=== PATIENT | male | born 1965 | race Caucasian/White ===

== ENCOUNTER 2016-04-16 08:01 | Emergency (ER) | payer OTHER ==
[~2016-04-16] VITALS: Ht 193 cm; Wt 129.6 kg
--- NOTE | 2016-04-16 08:06 | ED.REPORT ---
HPI-General Illness Date of Service Apr 16, 2016 ED Provider: Kuldeep Garrido Patient is a 50 year old male who presents to the ED complaining of leg swelling onset one week ago. Associated symptoms include cough. He denies fever , chills, chest pain, SOB, or any other symptoms. He states that his lens coater (Dr. Falcon) says his "L arterial valve in not pumping enough blood out". He is not on any blood thinners. He takes Lasix and Lantus. Nursing Notes Stated Complaint: RETAINING WATER/LEG CRAMPS Nursing Notes Reviewed: Yes Allergies: Coded Allergies: No Known Allergies (Unverified , 04/16/16) Scheduled Furosemide (Lasix) 40 Mg Tablet 40 MG PO BID General Time Seen by MD: 08:06 Chief Complaint Other (Lower extremity swelling ) Hx Obtained From: Patient Arrived By: Walk-in Past Medical History Past Medical History Reports: Diabetes mellitus, Hyperlipidemia, Hypertension Past Surgical History Denies Social History Alcohol Use: "Social" Other Social History: Smokeless tobacco Review of Systems Full Review of Systems Constitutional: Denies: Chills, Fever Respiratory: Reports: Non-productive cough, Denies: Shortness of breath Cardiovascular: Denies: Chest pain Musculoskeletal: Reports: Extremity swelling (Bilateral leg swelling ) Complete sys rev & neg: except as marked. Physical Exam Vital Signs Vital Signs Date Time Temp Pulse Resp B/P Pulse Ox O2 Delivery O2 Flow Rate FiO2 04/16/16 09:47 101 20 154/92 04/16/16 08:21 36.2 04/16/16 08:14 106 19 172/97 97 Room Air Initial VS: Reviewed Head / Eyes: Atraumatic, Normocephalic Neck: Full range of motion Respiratory: Breath sounds normal, Clear to auscultation, No respiratory distress Abdomen / GI: Soft, Non-tender Skin: Warm, Dry Neurologic: Alert, Oriented, Nonfocal Psychiatric: Mood/affect normal, Behavior normal, Normal thought content General/Constitutional: Awake, Alert Hypertensive Cardiovascular: Regular rhythm, Heart sounds NL Heart Rate / Rhythm: Positive: Tachycardia Lower extremity edema to thighs Lower Extremity / Pelvis / MS: Neurologic intact venous stasis changes in legs Interpretation & Diagnostics Lab Results Interpretation Result Diagram: 04/16/16 0857 04/16/16 0857 Test 04/16/16 08:57 04/16/16 08:58 White Blood Count 8.0th/mm3 (3.8-10.1) Red Blood Count 5.26mil/mm3 (4.40-5.80) Hemoglobin 15.2g/dL (13.8-17.2) Hematocrit 47.2% (41.0-50.0) Mean Corpuscular Volume 89.7fL (81-100) Mean Corpuscular Hemoglobin 28.9pg (27.0-35.0) Mean Corpuscular Hemoglobin Concent 32.2% (32.0-37.0) Red Cell Distribution Width 15.0% (12.3-15.4) Platelet Count 284bil/L (150-400) Neutrophils (%) (Auto) 67.8% (40-74) Lymphocytes (%) (Auto) 19.1% (14-46) Monocytes (%) (Auto) 11.6% (4-12) Eosinophils (%) (Auto) 1.3% (0-5) Basophils (%) (Auto) 0.1% (0-3) Sodium Level 138mEq/L (134-144) Potassium Level 4.2mEq/L (3.5-5.2) Chloride Level 99mEq/L (97-108) Carbon Dioxide Level 23mmol/L (18-29) Blood Urea Nitrogen 16mg/dL (6-24) Creatinine 0.74mg/dL (0.76-1.27) Estimat Glomerular Filtration Rate 119mL/min (>59) Glucose Level 142mg/dL (60-99) Calcium Level 9.8mg/dL (8.5-10.1) Magnesium Level 1.5mg/dL (1.6-2.6) Total Bilirubin 1.0mg/dL (0.0-1.2) Aspartate Amino Transf (AST/SGOT) 24U/L (0-50) Alanine Aminotransferase (ALT/SGPT) 18U/L (0-44) Alkaline Phosphatase 184U/L (25-150) Troponin T < 0.010ug/L (0.0-0.011) Pro-B-Type Natriuretic Peptide 1680pg/mL (0-121) Total Protein 7.5g/dL (6.4-8.4) Albumin 3.3g/dL (3.4-5.0) Hold Rucker Top Tube Received (Received) ECG Interpretation ECG Interpretation: sinus tachy rate 106 non-specific T abnormalities, lateral leads Time: 08:48 Interpreted by: ED physician X-Ray Chest Interpretation Chest Xray Interpretation: IMPRESSION: Trace right-sided pleural effusion. Dictated by: Suzan Gibson MD, PhD on 04/16/2016 at 9:05 Approved by: Suzan Gibson MD, PhD on 04/16/2016 at 9:05 View: Portable, 1 view Interpretation / Wet Read by: Interpret - Radiologist Re-Eval/Medical Decision Med Decision/Clinical Course Symmetric lower extremity edema likely due to CHF, does not seem to be severely decompensated in such a way that would necessitate hospitalization. Will double up on Lasix, 40 mg twice a day for 5 days, recommended to contact his lens coater within 48 hours for repeat evaluation Time of Eval: 09:55 Re-Evaluation/Progress Note: Rechecked patient. Discussed lab and imagine results. Discussed plan for discharge. Patient understands and agrees with plan. All questions addressed at this time. Counseled Regarding: Diagnosis, Lab results, Need for follow-up, When/why to return to ED Discharge & Departure Primary Impression: CHF exacerbation Disposition: Home Discharge Condition All VS Reviewed: Yes Condition: Stable Additional Instructions: Increase your furosemide to 40 mg twice daily for 5 days. Call your lens coater tomorrow for repeat evaluation. ER for severe pain, hypoxia, difficulty breathing or other concerns. Referrals: Curtis Yun DO (PCP) Scribe Attestation Portions of this note were transcribed by Cara Mixon. I, Dr. Garrido personally performed the history, physical exam and medical decision-making; I reviewed and confirmed the accuracy of the information in the transcribed note. Signed by: Cara Mixon 04/16/16, 1023 copies to: Tomasa Falcon MD; Curtis Yun Timothy S DO Apr 16, 2016 08:06 CARA MIXON Apr 16, 2016 08:35
[2016-04-16 08:14] VITALS: BP 172/97; PULSE 106; RESP 19; O2SAT 97
[2016-04-16 09:01] LABS: BASOPHILS % (AUTO) 0.1 % (0-3); EOSINOPHILS % (AUTO) 1.3 % (0-5); MONOCYTES % (AUTO) 11.6 % (4-12); Mean Corpuscular Hemoglobin 28.9 pg (27.0-35.0); Mean Corpuscular Volume 89.7 fL (81-100); NEUTROPHILS % (AUTO) 67.8 % (40-74); Platelet Count 284 bil/L (150-400)
--- NOTE | 2016-04-16 09:09 | DRSVH ---
PROCEDURE: X-RAY CHEST ONE VIEW, PORTABLE ([id number]) INDICATIONS: fluid retention, CHF TECHNIQUE: One view of the chest was acquired. COMPARISON: [facility], CR, XR CHEST 2VW, 01/07/2016, 12:13. FINDINGS: Surgical changes and devices: None. Lungs and pleura: No pneumothorax. Trace right subpleural fluid collection is noted. Lungs are hypoi nflated. Lungs are clear. Mediastinum: Mediastinal contours appear normal. Heart size is normal. Bones and chest wall: No suspicious bony lesions. Overlying soft tissues appear unremarkable. IMPRESSION: Trace right-sided pleural effusion. Dictated by: Suzan Gibson MD, PhD on 04/16/2016 at 9:05 Approved by: Suzan Gibson MD, PhD on 04/16/2016 at 9:05
[2016-04-16] MEDS ORDERED: HYDROcodone-APAP 5-325 mg Tablet PO ONE (09:45)
[2016-04-16 09:47] VITALS: BP 154/92; PULSE 101; RESP 20
[2016-04-16 09:49] LABS: Magnesium 1.5 mg/dL (1.6-2.6)
[2016-04-16 09:53] LABS: TROPONIN T < 0.010 ug/L (0.0-0.011)
[2016-04-16] MEDS ORDERED: Furosemide 10 mg/mL 10 mL Inj IVPUSH ONE (09:55)
[2016-04-16] MEDS ORDERED: FURO-128 PO (10:21)
[2016-04-16] MEDS ORDERED: 0.9% Sodium Chloride 50 ML ONE (10:25)
[2016-04-16 11:23] VITALS: BP 158/92; PULSE 97; RESP 15
[2016-06-12] MEDS ORDERED: CARV25TA2 PO (16:30)
[2016-06-12] MEDS ORDERED: INS7030U SUBQ ×2 (16:30)
== END 2016-04-16 11:50 | disposition home or self-care (01) ==
LOC: SED 08:01
DX: I50.9 Heart failure, unspecified (principal); I11.0 Hypertensive heart disease with heart failure; E11.59 Type 2 diabetes mellitus with other circulatory complications; R05 Cough

== ENCOUNTER 2016-04-22 16:22 | Inpatient (IN) | payer OTHER ==
[~2016-04-22] VITALS: Ht 193 cm; Wt 123.1 kg
[~2016-04-22 16:22] MED LIST: FURO-128 PO
[2016-04-22 16:45] VITALS: BP 157/97; PULSE 106; RESP 16; O2SAT 94
--- NOTE | 2016-04-22 17:44 | DRSVH ---
PROCEDURE: X-RAY CHEST, TWO VIEWS ([id number]) INDICATIONS: shortness of breath TECHNIQUE: 2 views of the chest were acquired. COMPARISON: [facility], CR, XR CHEST 1VW (PORTABLE), 04/16/2016, 8:24. FINDINGS: Surgical changes and devices: None. Lungs and pleura: No pleural effusions or pneumothorax. Mild patchy medial right basilar opacities. Diffuse scarring. Elevated right hemidiaphragm. Mediastinum: Mediastinal contours are normal. Heart size is normal. Bones and chest wall: No suspicious bony abnormalities. Soft tissues appear unremarkable. IMPRESSION: Mild right basilar atelectasis/scarring. No acute consolidation Dictated by: Justo Brennan M.D. on 04/22/2016 at 17:42 Approved by: Justo Brennan M.D. on 04/22/2016 at 17:42
[2016-04-22] MEDS ORDERED: GLIP10TA10 PO (18:15)
[2016-04-22] MEDS ORDERED: METF-778 PO (18:15)
[2016-04-22] MEDS ORDERED: INSU100I13 SUBQ (18:15)
[2016-04-22] MEDS ORDERED: ATRV10T PO (18:15)
[2016-04-22] MEDS ORDERED: SPIR25TA3 PO (18:15)
[2016-04-22] MEDS ORDERED: LISI40TA PO (18:15)
--- NOTE | 2016-04-22 18:17 | ED.REPORT ---
HPI-General Illness Date of Service Apr 22, 2016 ED Provider: Teja García DO Pt is a 50 year old male with a hx of CHF and DM II presenting to the ED complaining of pain and increased swelling in his bilateral lower extremities onset 3 weeks ago. Associated symptoms include abdominal pain and SOB while lying down. Denies CP, fever or coughing up blood. Pt states that he is retaining water and describes the discomfort on his legs as feeling like a Christofer horse. He states that he has gained 30lbs of water weight in the last 3 weeks. The pt was seen in the ED on March 16 and his Lasix prescription was doubled. Nursing Notes Stated Complaint: PAIN IN LEGS Chief Complaint: General Complaint Nursing Notes Reviewed: Yes Allergies: Coded Allergies: No Known Allergies (Unverified , 04/22/16) Scheduled Atorvastatin (Lipitor) 10 Mg Tab 10 MG PO DAILY Furosemide (Lasix) 40 Mg Tablet 40 MG PO BID Glipizide (Glipizide) 10 Mg Tablet 10 MG PO BID Insulin Glargine (Lantus U100 Solostar Insulin Pen) 100 Unit/1 Ml Insuln.pen 50 UNIT SUBQ HS Lisinopril (Lisinopril) 40 Mg Tablet 40 MG PO BID Metformin HCl (Metformin HCl ER) 1,000 Mg [id number] 1,000 MG PO BID Spironolactone (Spironolactone) 25 Mg Tablet 25 MG PO DAILY General Time Seen by MD: 18:02 Chief Complaint Other (Swelling LE) Hx Obtained From: Patient Sudden in Onset?: No Onset Occurred: More than a week ago... (3 weeks) Symptom Duration: Since onset Location: : Leg left: Leg right Quality: Painful Severity: Current: Moderate Severity: Maximum: Moderate Recent Healthcare: No recent hospitalization, Recent doctor visit Similar Sx Previous: Yes Past Medical History Past Medical History CHF, left ventricle insufficiency Reports: Diabetes mellitus, Hyperlipidemia, Hypertension Past Surgical History Denies Social History Alcohol Use: "Social" Other Social History: Smokeless tobacco Ambulatory Status Independent Review of Systems Full Review of Systems Constitutional: Denies: Fever Respiratory: Reports: Shortness of breath, Denies: Non-productive cough Cardiovascular: Denies: Chest pain GI: Reports: Abdominal pain Musculoskeletal: Reports: Extremity pain (LE), Extremity swelling (LE) Endocrine: Reports: Weight gain (30 lbs) Complete sys rev & neg: except as marked. Physical Exam Vital Signs Vital Signs Date Time Temp Pulse Resp B/P Pulse Ox O2 Delivery O2 Flow Rate FiO2 04/22/16 20:37 103 20 168/108 95 Room Air 04/22/16 16:45 36.9 106 16 157/97 94 Room Air Initial VS: Reviewed General/Constitutional: Well-developed, Well-nourished Head / Eyes: Atraumatic, Normocephalic, PERRL ENT: Mucous membranes moist, Conjunctiva normal, No scleral icterus Respiratory: Breath sounds normal, Clear to auscultation, No respiratory distress Abdomen / GI: Soft, Non-tender, No guarding, No rebound, No distention Skin: Warm, Dry, No cyanosis Neurologic: Alert, Oriented, Nonfocal Psychiatric: Mood/affect normal, Behavior normal, Normal thought content Neck: Atraumatic Neck Vascular: Positive: JVD mild Cardiovascular: No gallop, No murmurs, No rubs Heart Rate / Rhythm: Positive: Tachycardia Hypertensive Lower Extremity / Pelvis / MS: Full range of motion, Neurologic intact, Vascular intact Anasarca up to abdomen. Interpretation & Diagnostics Lab Results Interpretation Result Diagram: 04/22/16180604/22/161806 Test 04/22/16 18:07 White Blood Count 7.3th/mm3 (3.8-10.1) Red Blood Count 5.06mil/mm3 (4.40-5.80) Hemoglobin 14.5g/dL (13.8-17.2) Hematocrit 45.4% (41.0-50.0) Mean Corpuscular Volume 89.7fL (81-100) Mean Corpuscular Hemoglobin 28.7pg (27.0-35.0) Mean Corpuscular Hemoglobin Concent 31.9% (32.0-37.0) Red Cell Distribution Width 15.2% (12.3-15.4) Platelet Count 244bil/L (150-400) Neutrophils (%) (Auto) 78.0% (40-74) Lymphocytes (%) (Auto) 12.6% (14-46) Monocytes (%) (Auto) 8.7% (4-12) Eosinophils (%) (Auto) 0.7% (0-5) Basophils (%) (Auto) 0% (0-3) D-Dimer < 0.5mg/L (<0.50) Sodium Level 138mEq/L (134-144) Potassium Level 4.1mEq/L (3.5-5.2) Chloride Level 99mEq/L (97-108) Carbon Dioxide Level 28mmol/L (18-29) Blood Urea Nitrogen 18mg/dL (6-24) Creatinine 0.83mg/dL (0.76-1.27) Estimat Glomerular Filtration Rate 104mL/min (>59) Glucose Level 185mg/dL (60-99) Calcium Level 9.2mg/dL (8.5-10.1) Total Bilirubin 0.8mg/dL (0.0-1.2) Aspartate Amino Transf (AST/SGOT) 20U/L (0-50) Alanine Aminotransferase (ALT/SGPT) 13U/L (0-44) Alkaline Phosphatase 147U/L (25-150) Troponin T < 0.010ug/L (0.0-0.011) Pro-B-Type Natriuretic Peptide 1494pg/mL (0-121) Total Protein 6.8g/dL (6.4-8.4) Albumin 3.1g/dL (3.4-5.0) ECG Interpretation ECG Interpretation: Tachycardic with a rate of 103. Nonspecific T abnormalities, lateral leads. No STEMI Time: 17:46 Interpreted by: ED physician Normal ECG Interpretation: Normal sinus rhythm X-Ray Chest Interpretation Chest Xray Interpretation: IMPRESSION: Mild right basilar atelectasis/scarring. No acute consolidation Dictated by: Justo Brennan M.D. on 04/22/2016 at 17:42 View: AP & lat Interpretation / Wet Read by: Interpret - Radiologist Re-Eval/Medical Decision Med Decision/Clinical Course Spoke to Dr. Serrano and he advised to admit the pt overnight to administer IV Lasix. This should release some of the lower extremity fluid buildup. Time of Eval: 20:25 Patient Status: Condition improved Re-Evaluation/Progress Note: Discussed plan for admission. Pt understands and agrees. Consultation #1: Referral / Consult Name: Quinton Serrano MD Consulted With: Cardiology Call Returned at: 20:20 Note: Admit the pt and give IV Lasix. Consultation #2: Referral / Consult Name: Ashlie Castillo MD Consulted With: Hospitalist Call Returned at: 21:02 Energy Project Manager: Will see patient, Agrees with plan, Accepts admit Discharge & Departure Primary Impression: CHF exacerbation Disposition: ADMITTED TO HOSPITAL Discharge Condition All VS Reviewed: Yes Condition: Improved Referrals: Curtis Yun DO (PCP) Tomasa Falcon MD Scribe Attestation Portions of this note were transcribed by Mariangel Oscar. I, Dr. García personally performed the history, physical exam and medical decision-making; I reviewed and confirmed the accuracy of the information in the transcribed note. Signed by : Tanner Jin, 04/22/2016 and 210. copies to: Tomasa Falcon MD; Curtis Yun Todd P DO Apr 22, 2016 18:17 MARIANGEL OSCAR Apr 22, 2016 18:30
[2016-04-22 18:29] LABS: BASOPHILS % (AUTO) 0 % (0-3); EOSINOPHILS % (AUTO) 0.7 % (0-5); MONOCYTES % (AUTO) 8.7 % (4-12); Mean Corpuscular Hemoglobin 28.7 pg (27.0-35.0); Mean Corpuscular Volume 89.7 fL (81-100); Platelet Count 244 bil/L (150-400)
[2016-04-22 18:47] LABS: TROPONIN T < 0.010 ug/L (0.0-0.011)
[2016-04-22] MEDS ORDERED: Furosemide 10 mg/mL 10 mL Inj IVPUSH ONE (20:25)
[2016-04-22 20:37] VITALS: BP 168/108; PULSE 103; RESP 20; O2SAT 95
[2016-04-22] MEDS ORDERED: HYDROcodone-APAP 5-325 mg Tablet PO ONE (20:45)
[2016-04-22 21:28] VITALS: BP 166/104; PULSE 105; RESP 20; O2SAT 95
[2016-04-22] MEDS ORDERED: Alum-Mag Hydrox-Simeth 30 mL Suspension PO PRN (21:30)
[2016-04-22 21:42] VITALS: BP 153/95; PULSE 99; RESP 18; O2SAT 97
[2016-04-22] MEDS: Insulin GLARgine 100 Unit/mL Syringe SUBQ SCH (22:30)
[2016-04-22] MEDS ORDERED: Glucose 40% Oral Gel 15 Gm Tube PO PRN (22:30)
--- NOTE | 2016-04-22 22:31 | NUR ---
Admit Patient admitted to room 3024 at 2140 from ED. Alert and oriented, answered all admit questions. Patient on bariatric bed. Oriented to room, call light, plan of care, hospital policies, intentional rounding. Telemetry placed. Patient signed property waiver. Will be on a continuous pulse oximeter overnight per JOSE A protocol, scored 7. Call light within reach, bed in lowest position, intentional rounding for safety.
--- NOTE | 2016-04-22 22:36 | PCM.HPMED ---
Subjective Date of Service Apr 22, 2016 Primary Provider: Admitting Physician: Ashlie Castillo MD Primary Care Physician: Cutris Yun DO Attending Physician: Ashlie Castillo MD Chief Complaint: Pain in legs. History of Present Illness: Jos is a 50-year-old obese gentleman with history of systolic heart failure , diabetes, hypertension who presents to the ER approximately one week following an ER visit on April 16 for CHF exacerbation. He presents with his mother. Robbin reports that he has been experiencing increase in his body weight over the last several days with increased swelling in both legs and up to the level of his belly. He reports that he has doubled up on his home Lasix without significant effect. He does report that he is urinating a lot, but "apparently not enough." He reports significant pain in his legs, and notes that they feel like they are stretched. He also reports significant pain in his bilateral knees. He has been taking ibuprofen regularly with up to 7-8 200 mg tablets a day for several weeks. He notes that at his ER visit earlier this month he was advised to take a break. He reports that it is somewhat more difficult to lie flat at which time he experiences shortness of breath, and he notes that he has also had more shortness of breath with exertion. He reports an ongoing chronic cough that is not productive, and does not seem to be associated with his current presentation. He denies any other concerns at this time. Review of Systems: Comprehensive review of systems conducted and was negative except for the pertinent positives listed in history of present illness above. Allergies Coded Allergies: No Known Allergies (Unverified , 04/22/16) Home Medications Jos Ragsdale. [id number] 1965 02/15/2016 10:00 AM 04/2005/09/2013 Accu-Chek Active Glucose Cont combo pack Check blood sugars 4 times daily. Fasting in AM, before breakfast and dinner meals and once two hours after a meal 01/07/2016 atorvastatin 10 mg tablet take 1 tablet by oral route every day 12/18/2015 Blood Glucose Monitoring kit take 3 not specified by percutaneous route 4 times every day carvedilol 12.5 mg tablet take 1 tablet twice daily 01/07/2016 furosemide 40 mg tablet take 1 tablet by oral route once daily glipizide 10 mg tablet take 1 tablet by oral route 2 times every day before a meal Lantus Solostar 100 unit/mL (3 mL) subcutaneous insulin pen inject 40 units every night 01/07/2016 lisinopril 40 mg tablet take 1 Tablet by oral route twice daily. 12/17/2015 metformin 1,000 mg tablet take 1 tablet by oral route 2 times every day with morning and evening meals 01/27/2014 ONE TOUCH DELICA 33G LANCETS USE TO DRAW BLOOD TO TEST BLOOD SUGARS 4 TIMES A DAY. FASTING IN AM, BEFORE BREAKFAST AND DINNER MEALS AND ONCE TWO HOURS AFTER A MEAL. 01/27/2014 ONE TOUCH ULTRA BLUE TEST STRIPS USE TO TEST BLOOD SUGARS FOUR TIMES A DAY. FASTING IN AM BEFORE BREAKFAST AND DINNER MEALS AND ONCE 2 HOURS AFTER A MEAL 01/07/2016 spironolactone 25 mg tablet take 1 tablet by oral route every day 12/03/2015 Ventolin HFA 90 mcg/actuation aerosol inhaler inhale 2 puff by inhalation route every 4 - 6 hours as needed PMH Heart failure with reduced EF: Diagnosed with EF 30-35% on echo 12/2015 ( registered medical transcriptionist is Dr. Falcon with [facility] cardiology) * 01/06/16 Interpretation Summary 1) Normal left ventricular size with moderately to severely reduced systolic function (EF 30-35%). 2) Normal right ventricular size with mildly to moderately reduced function. 3) No significant valvular abnormalities. 4) Elevated right sided filling pressures. 5) Severe hypertension present during the study (BP 168/112). 6) No prior echo available for comparison. Diabetes mellitus type II on insulin, last A1c was 11/29/2015 at 13.4% * Complicated by elevated microalbumin (microalbumin/creatinine 1756.8 on 2013) Hypertension, essential * Outpatient blood pressure readings over the last several months have been 120s to 140s over 80s to 90s. 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 She reports that he can no longer work due to his medical conditions. Exam Vital Signs Vital Sign - Last Date Time Temp Pulse Resp B/P Pulse Ox O2 Delivery O2 Flow Rate FiO2 04/22/16 21:28 105 20 166/104 95 Room Air 04/22/16 16:45 36.9 Exam General: Cooperative, No Acute Distress, lying on ER gurney with head of bed elevated to 15 Head: Normocephalic, atraumatic. External ears normal. Eyes: PERRL, EOMI. Anicteric sclerae. Mouth: Mucous Membranes Moist/[place], remnants of chewing tobacco, poor dentition Neck: Neck supple with full range of motion. No Thyromegaly. Chest & Lungs: Clear to auscultation bilaterally with minimal crackles in the bilateral bases without wheezes or rhonchi. Cardiovascular: Tachycardic Rate/Rhythm, Normal S1, Normal S2, No Murmurs/Rubs/ Gallops appreciated, radial and posterior tibial pulses are 2+ bilaterally. No JVD appreciated on exam. Abdomen: Non-tender, Non-distended, No masses, Normoactive bowel tones, Soft, no pitting edema noted. Musculoskeletal: Normal Range of Motion, but does note some discomfort in his bilateral knees with movement Extremities: Mild to moderate pitting edema in the bilateral legs from the feet to the hips, significant hyperpigmentation with scaling on the bilateral lower legs consistent with stasis dermatitis Neurological: Alert, Oriented X3, Grossly Neurologically Intact, Cranial Nerves 2-12 Intact, Normal Speech Psych: Normal mood and affect. Thought process and content intact. Lab and Diagnostics Labs Laboratory Tests 72 Hours Test 04/22/16 18:07 White Blood Count 7.3th/mm3 (3.8-10.1) Red Blood Count 5.06mil/mm3 (4.40-5.80) Hemoglobin 14.5g/dL (13.8-17.2) Hematocrit 45.4% (41.0-50.0) Mean Corpuscular Volume 89.7fL (81-100) Mean Corpuscular Hemoglobin 28.7pg (27.0-35.0) Mean Corpuscular Hemoglobin Concent 31.9% (32.0-37.0) Red Cell Distribution Width 15.2% (12.3-15.4) Platelet Count 244bil/L (150-400) Neutrophils (%) (Auto) 78.0% (40-74) Lymphocytes (%) (Auto) 12.6% (14-46) Monocytes (%) (Auto) 8.7% (4-12) Eosinophils (%) (Auto) 0.7% (0-5) Basophils (%) (Auto) 0% (0-3) D-Dimer < 0.5mg/L (<0.50) Sodium Level 138mEq/L (134-144) Potassium Level 4.1mEq/L (3.5-5.2) Chloride Level 99mEq/L (97-108) Carbon Dioxide Level 28mmol/L (18-29) Blood Urea Nitrogen 18mg/dL (6-24) Creatinine 0.83mg/dL (0.76-1.27) Estimat Glomerular Filtration Rate 104mL/min (>59) Glucose Level 185mg/dL (60-99) Calcium Level 9.2mg/dL (8.5-10.1) Total Bilirubin 0.8mg/dL (0.0-1.2) Aspartate Amino Transf (AST/SGOT) 20U/L (0-50) Alanine Aminotransferase (ALT/SGPT) 13U/L (0-44) Alkaline Phosphatase 147U/L (25-150) Troponin T < 0.010ug/L (0.0-0.011) Pro-B-Type Natriuretic Peptide 1494pg/mL (0-121) Total Protein 6.8g/dL (6.4-8.4) Albumin 3.1g/dL (3.4-5.0) Result Diagram: 04/22/16180604/22/161806 X-Rays, CTs and MRIs Date of Service: 04/22/16 6139 PROCEDURE: X-RAY CHEST, TWO VIEWS ([id number]) INDICATIONS: shortness of breath COMPARISON: [facility], CR, XR CHEST 1VW (PORTABLE), 04/16/2016, 8: 24. IMPRESSION: Mild right basilar atelectasis/scarring. No acute consolidation Dictated by: Justo Brennan M.D. on 04/22/2016 at 17:42 12-lead ECG Sinus tachycardia with a rate of 103, normal axis, normal interval durations, nonspecific T-wave abnormalities in the lateral leads, but no other ST-T wave changes to suggest ischemia. Assessment & Plan 50-year-old obese male with history of heart failure with reduced EF, diabetes with poor control, hypertension with poor control who presented to the ER with increased lower extremity swelling, weight gain, orthopnea. 1. Heart failure with reduced EF (estimated 30-35% on echo 12/2015) with acute exacerbation, present on admission. * Likely secondary to dietary indiscretion. Failure of home titration of diuretic. * Differential includes: Venous insufficiency, hypoalbuminemia. Please note TSH on 01/07/2016 was 1.530. * Diuresis with IV furosemide, dose given in the ER. * Continue home lisinopril and spironolactone and carvedilol * Repeat chest x-ray in a couple days * Repeat echo once acute symptoms have improved * CHF clinic * Heart healthy/constant carb diet with 2 L fluid restriction * Daily standing weights * Telemetry 2. Hypertension, essential, worse than historical on admission. * Likely secondary to stress of hospitalization * Continue home medications as above * As his heart rate is elevated, will give one-time dose of labetalol by mouth 100 mg tonight if elevation persists. * Monitor 3. Bilateral lower extremity edema and pain, worse than historical on admission. * Likely secondary to #1 * Differential includes: DVT (less likely given symmetry and consistency with presentation), differential as in #1 * Management as in #1 * Pain management with Tylenol. Consideration for using a low-dose narcotic if needed (patient is opiate stephen). * DVT prophylaxis with heparin subcutaneous 4. Diabetes mellitus type II on insulin complicated by elevated microalbumin. Hyperglycemia on admission. * Significance of hyperglycemia uncertain given hour of the day. * Continue home Lantus (reported at 50 units every night subcutaneous), but hold metformin and sulfonylurea * Correctional insulin, medium dose * Check A1c 5. Hyperlipidemia. * Continue home statin * Most recent lipid panel was 01/07/2016: Total cholesterol 152, triglyceride 135 , HDL 37, LDL 88 6. Tobacco dependence, chewing. * Tobacco cessation discussed. * Nicotine patch provided if needed 7. Obesity * Management of medical conditions as above PRN MEDICATIONS - Acetaminophen as needed for mild pain/fever/headache - Bowel regimen as needed Patient is admitted under inpatient status with expected length of stay greater than 2 midnights due to severity of presenting symptoms, risk of adverse event, and complexity of treatment plan. Pain Evaluation: Adequate Pain Control GI Prophylaxis: Not indicated VTE Prophylaxis: Sub-Q Heparin (Unfractionated) Resuscitation Status: CPR: Attempt Resuscitation Attending Statement Pt seen and examined by myself and agree with above plan. copies to: Tomasa Falcon MD; Curtis Yun Collin T DO Apr 22, 2016 22:36 Ashlie Castillo MD Apr 23, 2016 06:05
[2016-04-23] VITALS (9 sets, daily range): BP systolic 125–138; BP diastolic 77–87; PULSE 73–94; RESP 18; O2SAT 94–98
[2016-04-23 00:29] LABS: APPEARANCE,URINE CLEAR (CLEAR,HAZY); COLOR,URINE YELLOW (YELLOW)
[2016-04-23 00:30] LABS: OCCULT BLOOD,URINE TRACE (NEGATIVE)
[2016-04-23] MEDS: HYDROcodone-APAP 5-325 mg Tablet PO PRN ×4 (01:05→17:43)
--- NOTE | 2016-04-23 03:34 | NUR ---
Glucose levels Patient's glucose at 2330 was 103. Scheduled 50 units Lantus NOT given, per patient request. Glucose level rechecked at 0330 and it was 85. Patient is asymptomatic. Will pass on to day RN information.
[2016-04-23 06:47] LABS: BASOPHILS % (AUTO) 0.2 % (0-3); EOSINOPHILS % (AUTO) 1.6 % (0-5); MONOCYTES % (AUTO) 11.8 % (4-12); Mean Corpuscular Hemoglobin 28.7 pg (27.0-35.0); Mean Corpuscular Volume 89.9 fL (81-100); NEUTROPHILS % (AUTO) 69.5 % (40-74); Platelet Count 219 bil/L (150-400)
--- NOTE | 2016-04-23 06:49 | NUR ---
Sterile Instrument Technician tech reported that patient had 6 beats V-tach, phone call at 0647. Patient is asleep, but said that he feels fine when woken up. 2L nasal cannula applied at this time for oxygen saturations that briefly drop to high 80's while asleep. Will inform oncoming RN.
[2016-04-23 06:53] LABS: Magnesium 1.5 mg/dL (1.6-2.6)
[2016-04-23] MEDS: Lisinopril 40 Tablet PO SCH ×3 (07:53→20:45)
[2016-04-23] MEDS: Heparin 5,000 Unit/mL Inj SUBQ SCH ×2 (07:55→20:45)
[2016-04-23] MEDS: Insulin LISPRO 300 Unit/3 mL Inj SUBQ SCH ×4 (08:00→20:54)
[2016-04-23] MEDS: Sodium Chloride LOK Flush 10 mL Syringe IVFLUSH SCH ×3 (08:30→16:48)
[2016-04-23] MEDS ORDERED: Influenza (Adult) Vaccine 0.5 mL Syringe IM ONE (08:30)
[2016-04-23] MEDS ORDERED: Furosemide 10 mg/mL 4 mL Inj IVPUSH SCH (09:25)
[2016-04-23] MEDS ORDERED: IBUP800T28 PO (09:58)
[2016-04-23] MEDS ORDERED: Magnesium Sulf 4 Gm/100 mL H2O 4 GM in IV Premix 1 EACH IV ONE (10:05)
[2016-04-23] MEDS ORDERED: 0.9% Sodium Chloride 250 ML ONE (11:22)
--- NOTE | 2016-04-23 11:23 | NUR ---
Social Work: Screening Data: Pt is a 50 y/o male admitted for congestive heart failure with anasarca. Pt's PCP is Dr Yun, pt's insurance is [employer]. EMR reviewed, no d/c planning needs anticipated. RABBLER will continue to follow if needs arise. Assessment: Pt who is independent at baseline. Plan: Pt will likely d/c home via POV when medically stable. No d/c planning needs anticipated. RABBLER will continue to follow if needs arise. JOCELYN Freeman
--- NOTE | 2016-04-23 12:33 | PCM.CHPCAR ---
Consult Subjective Date of service Apr 23, 2016 Date of admit Apr 22, 2016 at 20:59 Provider Requesting Consult Requesting Provider: JUICE LOPEZ HOSPITALIST Primary Care Physician Primary Care Provider: Curtis Yun DO Chief Complaint Water gain/edema History of Present Illness Jos is a 50 y/o man with recently diagnosed CHF (HFrEF). He had an echocardiogram completed in fall and showed a LVEF around 35%. He was referred to Dr. Falcon for cardiology care. He was started on appropriate medical therapy. Apparently, he did not have any insurance and he wanted to defer any more expensive procedures until he had insurance which he just started with on 04/16/2016. He has risk factors such as DM (not well controlled) , HLD, and HTN. He apparently has been compliant with his medications as of lately and his sodium restriction. He was recently seen in the ER and his Lasix was increased but he continued to have weight gain of about 8 lbs in 24 hours. Surprisingly, he denies any orthopnea or PND but he probably does have sleep apnea with recent hx of desaturations during sleeping hours. He initially came in with significant hypertension but now his BP has decreased and has normalized. His major complaint is lower extremity discomfort and constipation and decreased appetite. His chest CXR was unremarkable in the ER and EKG has not shown any acute changes suggestive of acute coronary syndrome. His troponins are negative up to date. His pBNP is ~1400. He also reports a cough. Review of Systems Review of Systems Comprehensive review of systems conducted and was negative except for the pertinent positives listed in history of present illness above. PMH Past Medical History Heart failure with reduced EF: Diagnosed with EF 30-35% on echo 12/2015 ( boxing inspector is Dr. Falcon with [facility] cardiology) * 01/06/16 Interpretation Summary 1) Normal left ventricular size with moderately to severely reduced systolic function (EF 30-35%). 2) Normal right ventricular size with mildly to moderately reduced function. 3) No significant valvular abnormalities. 4) Elevated right sided filling pressures. 5) Severe hypertension present during the study (BP 168/112). 6) No prior echo available for comparison. Diabetes mellitus type II on insulin, last A1c was 11/29/2015 at 13.4% * Complicated by elevated microalbumin (microalbumin/creatinine 1756.8 on 2013) Hypertension, essential * Outpatient blood pressure readings over the last several months have been 120s to 140s over 80s to 90s. Hyperlipidemia Tobacco dependence Obesity Bedside Blood Glucose: 124 Scheduled Atorvastatin (Lipitor) 10 Mg Tab 10 MG PO MORNING (Reported) Furosemide (Lasix) 40 Mg Tablet 40 MG PO BID Glipizide (Glipizide) 10 Mg Tablet 10 MG PO BID (Reported) Insulin Glargine (Lantus U100 Solostar Insulin Pen) 100 Unit/1 Ml Insuln.pen 50 UNIT SUBQ HS (Reported) Lisinopril (Lisinopril) 40 Mg Tablet 40 MG PO BID (Reported) Metformin HCl (Metformin HCl ER) 1,000 Mg [id number] 1,000 MG PO BID (Reported) Spironolactone (Spironolactone) 25 Mg Tablet 25 MG PO DAILY (Reported) Scheduled PRN Ibuprofen (Ibuprofen) 800 Mg Tablet 800 MG PO BID PRN PRN For Pain (Reported) Current Inpatient Medications Current Medications Al Hydrox/Mg Hydrox/Simethicone 30 ml Q6 PRN PO; Start 04/22/16 at 21:30 Ondansetron HCl Dose range: 4 mg to 8 mg Q4H PRN IVPUSH; Start 04/22/16 at 21:30 Acetaminophen 975 mg Q6H PRN PO; Start 04/22/16 at 21:30 Sodium Chloride 10 ml PERRY IVFLUSH Last administered on 04/23/16 00:00; Admin Dose 10 ML; Start 04/23/16 at 00:30 Senna 2 tablet BID PRN PO; Start 04/22/16 at 21:35 Polyethylene Glycol 17 gm DAILY PRN PO; Start 04/22/16 at 21:35 Nicotine 1 patch DAILY PRN TOPICAL; Start 04/22/16 at 21:35 Heparin Sodium (Porcine) 5,000 unit Q12 SUBQ Last administered on 04/23/16 07:55 ; Admin Dose 5,000 UNIT; Start 04/23/16 at 08:30 Atorvastatin Calcium 10 mg DAILY PO; Start 04/23/16 at 08:30; Stop 04/23/16 at 08: 30; Status DC Lisinopril 40 mg BID PO Last administered on 04/23/16 07:53; Admin Dose 40 MG; Start 04/22/16 at 22:30 Spironolactone 25 mg DAILY PO Last administered on 04/23/16 07:53; Admin Dose 25 MG; Start 04/23/16 at 08:30 Insulin Glargine 50 unit HS SUBQ; Start 04/22/16 at 22:30 Insulin Human Lispro Nutritional Dose to be given pr... [facility] SUBQ; Start at 08:00 Atorvastatin Calcium 10 mg HS PO Last administered on 04/23/16 00:00; Admin Dose 10 MG; Start 04/22/16 at 22:35 Acetaminophen/ Hydrocodone Bitart 1-2 tabs q4h Q4 PRN PO Last administered on 09:25; Admin Dose 2 TABLET; Start 04/22/16 at 22:35 Carvedilol 12.5 mg BIDWM PO Last administered on 04/23/16 08:00; Admin Dose 12.5 MG; Start 04/22/16 at 22:40; Stop 04/23/16 at 11:57; Status DC Furosemide 40 mg DAILY IVPUSH Last administered on 04/23/16 11:13; Admin Dose 40 MG; Start 04/23/16 at 09:25 Carvedilol 6.25 mg BIDWM PO; Start 04/23/16 at 17:30 Allergies: Coded Allergies: No Known Allergies (Unverified , 04/22/16) Social History Hx Alcohol Use: Yes (rarely, remote history of heavy use)Hx Substance Use: No Hx Tobacco Use: Yes (daily chewing tobacco, never smoker) Smoking Status: Never Smoker Living Arrangement: with Family Exam Vital Signs Vital Sign - Last Date Time Temp Pulse Resp B/P Pulse Ox O2 Delivery O2 Flow Rate FiO2 04/23/16 10:16 77 04/23/16 10:08 36.3 18 125/77 96 Room Air Intake and Output 04/22/16 04/22/16 04/23/16 Cumulative From/Thru 14:59 22:59 06:59 04/22/16 16:45 - 04/23/16 06:38 Intake Total 638 ml 638 ml Output Total 2000 ml 2000 ml Balance -1362 ml -1362 ml Intake Oral 638 ml 638 ml Output Urine Total 2000 ml 2000 ml # Bowel Movements 0 0 Objective General: Cooperative, No Acute Distress, Head: Normocephalic, atraumatic. External ears normal. Eyes: PERRL, EOMI. Anicteric sclerae. Mouth: Mucous Membranes Moist/[place], remnants of chewing tobacco, poor dentition Neck: Neck supple with full range of motion. No Thyromegaly. JVP difficult to assess. Chest & Lungs: Clear to auscultation bilaterally with minimal crackles in the bilateral bases without wheezes or rhonchi. Cardiovascular: Tachycardic Rate/Rhythm, Normal S1, Normal S2, No Murmurs/Rubs/ Gallops appreciated, radial and posterior tibial pulses are 2+ bilaterally. Abdomen: Non-tender, Non-distended, No masses, Normoactive bowel tones, Soft, no pitting edema noted. Musculoskeletal: Normal Range of Motion, but does note some discomfort in his bilateral knees with movement Extremities: Mild to moderate pitting edema in the bilateral legs from the feet to the hips, significant hyperpigmentation with scaling on the bilateral lower legs consistent with stasis dermatitis Neurological: Alert, Oriented X3, Grossly Neurologically Intact, Cranial Nerves 2-12 Intact, Normal Speech Psych: Normal mood and affect. Thought process and content intact. Lab and Diagnostics Labs CBC Test 04/23/16 05:43 White Blood Count 6.2th/mm3 (3.8-10.1) Red Blood Count 4.77mil/mm3 (4.40-5.80) Hemoglobin 13.7g/dL (13.8-17.2) Hematocrit 42.9% (41.0-50.0) Mean Corpuscular Volume 89.9fL (81-100) Mean Corpuscular Hemoglobin 28.7pg (27.0-35.0) Mean Corpuscular Hemoglobin Concent 31.9% (32.0-37.0) Red Cell Distribution Width 15.2% (12.3-15.4) Platelet Count 219bil/L (150-400) Neutrophils (%) (Auto) 69.5% (40-74) Lymphocytes (%) (Auto) 16.7% (14-46) Monocytes (%) (Auto) 11.8% (4-12) Eosinophils (%) (Auto) 1.6% (0-5) Basophils (%) (Auto) 0.2% (0-3) CMP Test 04/22/16 18:07 04/23/16 05:43 Troponin T < 0.010ug/L Pro-B-Type Natriuretic Peptide 1494pg/mL Sodium Level 141mEq/L Potassium Level 4.1mEq/L Chloride Level 101mEq/L Carbon Dioxide Level 26mmol/L Blood Urea Nitrogen 18mg/dL Creatinine 0.84mg/dL Estimat Glomerular Filtration Rate 102mL/min Glucose Level 113mg/dL Calcium Level 9.1mg/dL Magnesium Level 1.5mg/dL Total Bilirubin 0.7mg/dL Aspartate Amino Transf (AST/SGOT) 21U/L Alanine Aminotransferase (ALT/SGPT) 12U/L Alkaline Phosphatase 144U/L Total Protein 6.0g/dL Albumin 3.1g/dL Result Diagram: 04/23/1643 04/23/1643 X-Rays, CTs and MRIs Date of Service: 04/22/16 1649 PROCEDURE: X-RAY CHEST, TWO VIEWS ([id number]) INDICATIONS: shortness of breath TECHNIQUE: 2 views of the chest were acquired. COMPARISON: [facility], CR, XR CHEST 1VW (PORTABLE), 04/16/2016, 8: 24. FINDINGS: Surgical changes and devices: None. Lungs and pleura: No pleural effusions or pneumothorax. Mild patchy medial right basilar opacities. Diffuse scarring. Elevated right hemidiaphragm. Mediastinum: Mediastinal contours are normal. Heart size is normal. Bones and chest wall: No suspicious bony abnormalities. Soft tissues appear unremarkable. IMPRESSION: Mild right basilar atelectasis/scarring. No acute consolidation Assessment & Plan Problems: (1) Acute on chronic systolic CHF (congestive heart failure) Plan: He does not appear to have much in the way of pulmonary congestion but is definitely third spacing most likely 2/2 to his LV systolic dysfunction. Etiology is most consistent with HTN but certainly he needs to have complete ischemic workup to exclude any significant CAD since he does have significant risk factors. It appears that oral Lasix was not working effectively in this gentleman but he is responding to IV Lasix. I would simply continue with his IV Lasix but increase it to 40 mg BID and closely monitor his BMP's daily including magnesium. I would recommend Torsemide as an alternative for oral loop diuretic since it does have better bioabsorption. I have added oral digoxin 0.25 mg once a day which will hopefully help with his symptomatic HFrEF and reduce recurrent hospitalization. I have reduced his carvedilol to 6.25 mg twice a day as well. When he is more euvolemic then this can be increased back up to 12.5 mg twice a day. If by tomorrow his urine output is not that impressive, I would consider milrinone IV for inotropic support in addition with his IV Lasix. I have discussed my recommendations and findings with the hospitalist team and they will closely monitor his progression. I will discuss with his primary boxing inspector to see if he wishes to proceed with inpatient cardiac catheterization or as an outpatient. However, this too is dependent on his progression during this hospitalization. Status: Acute ICD Code: I50.23 (2) HTN (hypertension) Qualifiers: Hypertension type: essential hypertension Hypertension goal: less than 130 /80 Qualified Code: I10 - Essential (primary) hypertension Plan: Possible primary cause of his HFrEF. Every attempt should be made to control his HTN. For now, it is improving. Status: Chronic ICD Code: I10 (3) Hyperlipidemia Qualifiers: Hyperlipidemia type: Mixed hyperlipidemia Qualified Code: E78.2 - Mixed hyperlipidemia Status: Chronic ICD Code: E78.5 (4) DM (diabetes mellitus) Qualifiers: Diabetes mellitus type: type 2 Status: Acute ICD Code: E11.9 (5) Obesity Status: Acute ICD Code: E66.9 Cardiology Plan: Diuresis Pain Evaluation: Adequate Pain Control VTE Prophylaxis: Sub-Q Heparin (Unfractionated) Resuscitation Status: CPR: Attempt Resuscitation Time spent 80 minutes Copies to: Tomasa Falcon MD; Curtis Yun Oscar J MD Apr 23, 2016 12:33
--- NOTE | 2016-04-23 17:42 | PCM.PNMED ---
Subjective Date of Service Apr 23, 2016 Subjective Overnight: Asx 6 beats VT; O2 drops when asleep Today: Patient states his pain is in his legs and feet. Denies SOB; denies orthopnea. Tolerating po well. Admits to needing sleep study eval. Exam Vital Signs Vital Sign - Last Date Time Temp Pulse Resp B/P Pulse Ox O2 Delivery O2 Flow Rate FiO2 04/23/16 13:41 71 04/23/16 10:08 36.3 18 125/77 96 Room Air Intake and Output 04/22/16 04/22/16 04/23/16 Cumulative From/Thru 15:00 23:00 07:00 04/22/16 16:45 - 04/23/16 06:38 Intake Total 638 ml 638 ml Output Total 2000 ml 2000 ml Balance -1362 ml -1362 ml Intake Oral 638 ml 638 ml Output Urine Total 2000 ml 2000 ml # Bowel Movements 0 0 Exam General: AAOx3; pleasant and cooperative; no acute distress HENT: Atraumatic; sclera anicteric; mucus membranes moist Neck: Soft, trachea midline Cardiac: Regular rate and rhythm; no murmurs appreciated Respiratory: CTAB, adequate air flow all arana; no wheeze Abdomen: Soft, obese; trace-mild pitting edema noted on inferior pannus Extremities: BLLE moderate pitting edema noted extending from dorsum to thigh/ inferior abdomen; multiple superficial ulcerations BLLE; two significant approx 2cm diameter intact bullae noted left foot at #2-3 MTP, and lateral aspect great toe; Right great toe nail absent; chronic venous stasis changes BLLE Neuro: CNII-XII grossly intact; speech normal Psych: Appropriate mood, affect, and responses to questioning Lab and Diagnostics Result Diagram: 04/23/16 0543 04/23/16 0543 X-Rays, CTs and MRIs Date of Service: 04/22/16 1649 PROCEDURE: X-RAY CHEST, TWO VIEWS ([id number]) INDICATIONS: shortness of breath COMPARISON: [facility], CR, XR CHEST 1VW (PORTABLE), 04/16/2016, 8: 24. IMPRESSION: Mild right basilar atelectasis/scarring. No acute consolidation Dictated by: Justo Brennan M.D. on 04/22/2016 at 17:42 12-lead ECG Sinus tachycardia with a rate of 103, normal axis, normal interval durations, nonspecific T-wave abnormalities in the lateral leads, but no other ST-T wave changes to suggest ischemia. Assessment & Plan 50-year-old obese male with history of heart failure with reduced EF, diabetes with poor control, hypertension with poor control, who presented to the ER with increased lower extremity swelling, weight gain, orthopnea. Admitted for evaluation and treatment of anasarca suspected to be secondary to acute exacerbation CHF. - Hospital day 2 1. Heart failure with reduced EF (estimated 30-35% on echo 12/2015) with acute exacerbation, present on admission. Ongoing * Likely secondary to dietary indiscretion. Failure of home titration of diuretic. * Differential includes: Venous insufficiency, hypoalbuminemia. Please note TSH on 01/07/2016 was 1.530. * Cardiology has been consulted; appreciate time and recommendations * Lasix 40mg IV BID * If lasix ineffective, add milrinone IV in am * Change home Rx lasix to torsemide for better absorption * Digoxin 0.25mg daily * Carvedilol 6.25mg BID; consideration of increase at DC * Repeat chest x-ray 04/24 * Repeat echo once acute symptoms have improved; ordered * CHF clinic * Heart healthy/constant carb diet with 2 L fluid restriction * Daily standing weights * Telemetry 2. Hypertension, essential, chronic. Stable * Initial readings: Likely secondary to stress of hospitalization * Continue home medications as above * Monitor 3. Bilateral lower extremity edema and pain, worse than historical on admission. Ongoing * Likely secondary to #1 * Differential includes: DVT (less likely given symmetry and consistency with presentation), differential as in #1 * Management as in #1 * Pain management with Tylenol. Consideration for using a low-dose narcotic if needed (patient is opiate stephen). * DVT prophylaxis with heparin subcutaneous 4. Diabetes mellitus type II on insulin complicated by elevated microalbumin. Hyperglycemia on admission. * Continue home Lantus (reported at 50 units every night subcutaneous), but hold metformin and sulfonylurea * Correctional insulin, medium dose * Check A1c: Pending 5. Hyperlipidemia. * Continue home statin * Most recent lipid panel was 01/07/2016: Total cholesterol 152, triglyceride 135 , HDL 37, LDL 88 6. Tobacco dependence, chewing. * Tobacco cessation discussed. * Nicotine patch provided if needed 7. Obesity * Management of medical conditions as above * Dietary consultation placed 8. Bulla of left foot, acute, present on admission. Presumed stable - Wound care consultation 9. Right great toe, absent toenail, acute, present on admission. Stable - Wound care PRN MEDICATIONS - Acetaminophen as needed for mild pain/fever/headache - Bowel regimen as needed - DVT: Hep q8 - DIET: Heart/CC with fluid restriction - GI: None - Code: FULL CODE Dispo: Likely to remain additional 1-2 days pending medical stability and improvement. Current needs at this time include CHF clinic. Reported to have not met inpatient criteria. Currently changed to OBS. Pain Evaluation: Adequate Pain Control GI Prophylaxis: Not indicated VTE Prophylaxis: Sub-Q Heparin (Unfractionated) Resuscitation Status: CPR: Attempt Resuscitation Attending Statement The patient was seen and examined together with Dr. Gerardo on 04/23/2016 and I agree with the history, exam and plan as outlined in the note above. Christy Gerardo DO Apr 23, 2016 17:42 Lucas Carter MD Apr 24, 2016 09:17
--- NOTE | 2016-04-23 20:38 | DRSVH ---
[facility] [address] [place] [address] Echocardiogram Report Name: GERRY WOLFE RStudy Date: 04/23/2016 Height: 76 in Hospital Exam Location: [facility] Weight: 302 lb Gender: Male BSA: 2.6 m2 : 1965 Age: 50 yrs BP: 134/87 mmHg Reason For Study: BILATERAL LOWER EXTREMITY EDEMA, CHF Ordering Physician: HOSPITALIST [facility] Performed By: Teddy Palacios Referring Physician: TIRSO FERNANDEZ Interpretation Summary There is mild concentric left ventricular hypertrophy. Left ventricular systolic function is moderate to severely reduced. Left ventricular ejection fraction is estimated to be 35%. LVEF has not changed significantly since prior study. There is moderate to severe global hypokinesis of the left ventricle. Assessment of diastolic parameters indicates a restrictive filling pattern of the left ventricle consistent with significantly elevated filling pressures. The right ventricle is normal size. Right ventricular systolic function is mild to moderately reduced. Pulmonary artery pressures cannot be estimated because of the lack of a measurable TR jet velocity. The left atrial size is normal. Borderline right atrial enlargement. There is no significant valvular heart disease. The ascending aorta is mildly enlarged. The IVC is dilated (diameter is greater than 2.1 cm) and it collapses less than 50% with a sniff. This suggests a high right atrial pressure of 15 mm Hg. Procedure: A two-dimensional transthoracic echocardiogram with color flow and Doppler was performed. The study quality was technically adequate. A contrast injection of Definity was performed to improve assessment of LV function. Comparison is made with the echocardiogram of 01/06/16. The patient was in normal sinus rhythm during the exam. Left Ventricle: The left ventricle is normal in size. There is mild concentric left ventricular hypertrophy. Left ventricular systolic function is moderate to severely reduced. Left ventricular ejection fraction is estimated to be 35%. There is moderate to severe global hypokinesis of the left ventricle. Assessment of diastolic parameters indicates a restrictive filling pattern of the left ventricle consistent with significantly elevated filling pressures. Right Ventricle: The right ventricle is normal size. Right ventricular systolic function is mild to moderately reduced. Atria: The left atrial size is normal. Borderline right atrial enlargement. The interatrial septum is intact with no evidence for an atrial septal defect. Mitral Valve: The mitral valve is grossly normal. There is trace mitral regurgitation. Aortic Valve: The aortic valve is normal in structure and function. No aortic regurgitation is present. Tricuspid Valve: The tricuspid valve is not well visualized, but is grossly normal. Pulmonary artery pressures cannot be estimated because of the lack of a measurable TR jet velocity. Pulmonic Valve: The pulmonic valve is not well seen, but is grossly normal. There is a trace or physiologic amount of pulmonic regurgitation. There is no significant valvular heart disease. Great Vessels: The aortic root is normal size. The ascending aorta is mildly enlarged. The pulmonary artery is normal size. The IVC is dilated (diameter is greater than 2.1 cm) and it collapses less than 50% with a sniff. This suggests a high right atrial pressure of 15 mm Hg. Pericardium/ Pleura There is no pericardial effusion. There is a small left -sided pleural effusion. MMode/2D Measurements & Calculations LVIDd: 5.2 cm RA long axis: 5.6 cm LVOT diam LVIDs: 4.7 cm LA A2 area: 18.5 cm FS: 9.9 % LA A4 area: 23.5 cm RA area: 23.1 cm AoV Opening EPSS: 1.8 cm LA length (vol): 5.6 cm RA vol: 81.0 ml IVSd: 1.2 cm LA vol: 65.9 ml RA : 30.7 ml/m2 Ao root diam LVPWd: 1.3 cm LA vol index asc Aorta Diam: 3.7 cm IVC diam: 2.8 cm EDV(MOD-sp2) LV peterson. diameter/BSA LV sys. diameter/BSA TAPSE: 1.4 cm : 142.1 ml (cm/m^2): 2.0 (cm/m^2): 1.8 Doppler Measurements & Calculations Ao V2 max: 108.6 cm/sec MV E max manny MV E/A: 2.9 PA V2 max Ao max P.7 mmHg : 86.7 cm/sec MV A dur : 71.4 cm/sec Ao mean P.7 mmHg MV A max manny : 0.15 sec PA mean PG LVOT Max Manny: 68.6 cm/sec: 30.3 cm/sec : 1.0 mmHg ENMANUEL(I,D): 2.6 cm sev ratio: 0.64 MV dec time: 0.17 sec Ao V2 mean LV V1 max PG PA V2 mean : 79.6 cm/sec : 48.3 cm/sec Ao V2 VTI: 19.8 cm LV V1 VTI PA pr(Accel) ENMANUEL(V,D): 2.6 cm2 : 12.7 cm : 51.0 mmHg ENMANUEL indexed to BSA (cm^2/m^2): 1.00 Reading Physician:PM
[2016-04-23] MEDS: Furosemide 10 mg/mL 4 mL Inj IVPUSH SCH (20:45)
[2016-04-23] MEDS: Insulin GLARgine 100 Unit/mL Syringe SUBQ SCH (20:55)
[2016-04-24] VITALS (9 sets, daily range): BP systolic 123–138; BP diastolic 76–86; PULSE 73–83; RESP 18; O2SAT 95–99
[2016-04-24] MEDS: Sodium Chloride LOK Flush 10 mL Syringe IVFLUSH SCH ×4 (02:14→20:21)
[2016-04-24] MEDS: HYDROcodone-APAP 5-325 mg Tablet PO PRN ×5 (02:15→21:50)
[2016-04-24 06:06] LABS: BASOPHILS % (AUTO) 0.1 % (0-3); EOSINOPHILS % (AUTO) 1.6 % (0-5); MONOCYTES % (AUTO) 12.3 % (4-12); Mean Corpuscular Hemoglobin 28.8 pg (27.0-35.0); Mean Corpuscular Volume 92.9 fL (81-100); NEUTROPHILS % (AUTO) 74.1 % (40-74); Platelet Count 220 bil/L (150-400)
[2016-04-24 06:56] LABS: Magnesium 2.1 mg/dL (1.6-2.6); Phosphorus 5.7 mg/dL (2.5-4.9)
[2016-04-24] MEDS: Furosemide 10 mg/mL 4 mL Inj IVPUSH SCH ×2 (07:39→20:19)
[2016-04-24] MEDS: Lisinopril 40 Tablet PO SCH ×2 (07:40→20:19)
[2016-04-24] MEDS: Heparin 5,000 Unit/mL Inj SUBQ SCH ×2 (07:40→20:19)
[2016-04-24] MEDS: Insulin LISPRO 300 Unit/3 mL Inj SUBQ SCH ×4 (07:41→20:20)
[2016-04-24] MEDS: Senna-Docusate 8.6-50 mg Tablet PO PRN ×2 (07:46→21:49)
--- NOTE | 2016-04-24 09:25 | PCM.PNCARD ---
Subjective Date of service Apr 24, 2016 Chief Complaint # HFrEF: Unclear mechanism # HTN # T2DM # HLD # Tabacco Abuse # Morbid Obesity # Diabetic Ulcer to R Great Toe History of Present Illness Mr. Jos Ragsdale is a pleasant 50 y/o M that is clinically followed in the [facility] Cardiology clinic by Dr. Falcon. The patients cardiac history consists of: HFrEF (unclear etiology...suspect HTN), HTN, HLD, T2DM. During the patients most recent Clinic Visit with Dr. Falcon 02/2016 he was initiated on appropriate medical management. The patient had an echocardiogram completed in the fall that showed an LVEF of around 35%. Apparently, he did not have any insurance and he wanted to defer any more expensive procedures until he had insurance which he just started with on 04/16/2016. He apparently has been compliant with his medications as of lately and his sodium restriction. He was recently seen in the ER and his Lasix was increased but he continued to gain weight (8 lbs in 24 hours). The patient denies any orthopnea / PND. He denies anginal symptoms of any type, no palpitations, no dizziness, lightheadedness, pre-syncope or rolf syncopal spells. The patient probably does have sleep apnea with a recent hx of desaturations during sleeping hours. He was admitted with significant hypertension. His BP has subsequently decreased and has normalized. His major complaint is lower extremity discomfort and constipation with decreased appetite. His chest CXR was unremarkable in the ER and EKG has not shown any acute changes suggestive of acute coronary syndrome. His troponins are negative up to date. His pBNP is ~ 1400. . Medications: 1. Lasix 40mg IV BID 2. Lisinopril 40mg po BID 3. Carvedilol 6.25mg po BID 4. Spironolactone 25mg po qday 5. Digoxin o.25mg po qday 6. Atorvastatin 10mg po qday 7. Nicdoderm Patches 8. Lantus Insulin 9. Heparin Labs: 1. CMP: Na+ 140, K+ 4.5, BUN: 31, Creat: 1.01 2. Mg++ 2.1 3. ProBNP 1494 on (04/22/2016) 4. Albumin 3.1 2 D Echo: 23 April 2016 There is mild concentric left ventricular hypertrophy. Left ventricular systolic function is moderate to severely reduced. Left ventricular ejection fraction is estimated to be 35%. LVEF has not changed significantly since prior study. There is moderate to severe global hypokinesis of the left ventricle. Assessment of diastolic parameters indicates a restrictive filling pattern of the left ventricle consistent with significantly elevated filling pressures. The right ventricle is normal size. Right ventricular systolic function is mild to moderately reduced. Pulmonary artery pressures cannot be estimated because of the lack of a measurable TR jet velocity. The left atrial size is normal. Borderline right atrial enlargement. There is no significant valvular heart disease. The ascending aorta is mildly enlarged. The IVC is dilated (diameter is greater than 2.1 cm) and it collapses less than 50% with a sniff. This suggests a high right atrial pressure of 15 mm Hg Subjective: Today, the patient c/o N/V that started early this morning. He denies any type of anginal symptoms, no PND/Orthopnea, no SOB, no palpitations, no dizziness, lightheadedness, pre-syncope of rolf Syncope. He continue to c/o bilat LE pain and swelling. Additional Information: Comprehensive review of systems conducted and was negative except for the pertinent positives listed in history of present illness above Exam Vital Signs Vital Sign - Last Date Time Temp Pulse Resp B/P Pulse Ox O2 Delivery O2 Flow Rate FiO2 04/24/16 06:51 36.5 74 18 123/76 98 Nasal Cannula 2.00 Intake and Output 04/23/16 04/23/16 04/24/16 Cumulative From/Thru 15:00 23:00 07:00 04/22/16 16:45 - 04/23/16 21:06 Intake Total 1137 ml 1775 ml Output Total 125 ml 2125 ml Balance 1012 ml -350 ml Intake Oral 1137 ml 1775 ml Output Urine Total 125 ml 2125 ml # Bowel Movements 0 Additional Information: General: Cooperative, No Acute Distress, Head: Normocephalic, atraumatic. External ears normal. Eyes: PERRL, EOMI. Anicteric sclerae. Mouth: Mucous Membranes Moist/Anthony, remnants of chewing tobacco, poor dentition Neck: Neck supple with full range of motion. No Thyromegaly. JVP difficult to assess. Chest & Lungs: Clear to auscultation bilaterally with minimal crackles in the bilateral bases without wheezes or rhonchi. Cardiovascular: Normal S1, Normal S2, No Murmurs/Rubs/Gallops appreciated, radial and posterior tibial pulses are 2+ bilaterally. Abdomen: Obese,NT, Non-distended, No masses, + NABS 4 quads, Soft, no pitting edema noted. Extremities: Mild to moderate pitting edema in the bilateral legs from the feet to the hips, significant hyperpigmentation with scaling on the bilateral lower legs consistent with stasis dermatitis Neurological: Alert, Oriented X3, Grossly Neurologically Intact, Normal Speech Psych: Normal mood and affect. Lab and Diagnostics Result Diagram: 04/24/1654404/24/16544 Assessment & Plan Assessment # Acute on chronic systolic CHF (congestive heart failure) Plan: The patient does not appear to have much in the way of pulmonary congestion, however, he is definitely third spacing most likely secondary to his LV systolic dysfunction. The Etiology of the patient's CM is most consistent with HTN. He will need to have a complete ischemic workup to exclude any significant CAD since he does have multiple significant cardiac risk factors for the development of premature CAD. (T2DM, HTN, HLD, Tobacco abuse). Recommendations : 1. The patients weight is down 1.4Kg's/24h. Continue IV Lasix at 40 mg BID and continue to closely monitor his BMP's daily including magnesium. 2. Prior to DC, recommend switching from Furosemide to Torsemide as an alternative form of an oral loop diuretic since it does have better bioabsorption. 2. Continue oral digoxin 0.25 mg once a day which will hopefully help with his symptomatic HFrEF and reduce recurrent hospitalization. a): In lieu of the patients N/V, I've ordered a Trough Digoxin level this morning....before his noon dosage of Digoxin. 3. Continue carvedilol to 6.25 mg twice a day as well. When he becomes more euvolemic the Carvedilol may be increased back up to 12.5 mg twice a day. . I will discuss this patients treatment plan with Dr. Falcon (primary box office manager) to see if he wishes to proceed with an inpatient cardiac catheterization or as an outpatient. However, this too is dependent upon his progression during this hospitalization. # HTN The patients HTN may be a primary cause of his HFrEF. Recommendations: 1. Currently stable and well controlled on current medical management 2. BP goal is <130/80mmHg # Hyperlipidemia Recomendations: 1. Continue Atorvastatin 10mg/day # T2DM (diabetes mellitus) Recomendations: 1. Treatment per primary care team # Obesity Recommendations 1. Treament / Primary care team # Diabetic Foot Ulcer R Great Toe Recommendations: 1. Treatment plan / Primary care team Problems: (1) Acute on chronic systolic CHF (congestive heart failure) Status: Acute ICD Code: I50.23 (2) HTN (hypertension) Qualifiers: Hypertension type: essential hypertension Hypertension goal: less than 130 /80 Qualified Code: I10 - Essential (primary) hypertension Status: Chronic ICD Code: I10 (3) Hyperlipidemia Qualifiers: Hyperlipidemia type: Mixed hyperlipidemia Qualified Code: E78.2 - Mixed hyperlipidemia Status: Chronic ICD Code: E78.5 (4) DM (diabetes mellitus) Qualifiers: Diabetes mellitus type: type 2 Status: Acute ICD Code: E11.9 (5) Obesity Status: Acute ICD Code: E66.9 Cardiology Plan: Diuresis Pain Evaluation: Adequate Pain Control GI Prophylaxis: Not indicated VTE Prophylaxis: Sub-Q Heparin (Unfractionated) Resuscitation Status: CPR: Attempt Resuscitation Teja Carr PA-C Apr 24, 2016 09:25
--- NOTE | 2016-04-24 10:35 | PCM.PNMED ---
Subjective Date of Service Apr 24, 2016 Subjective Overnight: Ocassional paired PVCs, rate steady in 70s; O2 drops when asleep Today: Patient states his pain is in his legs and feet. Denies SOB; denies orthopnea. Tolerating po well. Exam Vital Signs Vital Sign - Last Date Time Temp Pulse Resp B/P Pulse Ox O2 Delivery O2 Flow Rate FiO2 04/24/16 09:39 36.4 77 18 127/81 98 Room Air 04/24/16 06:51 2.00 Intake and Output 04/23/16 04/23/16 04/24/16 Cumulative From/Thru 15:00 23:00 07:00 04/22/16 16:45 - 04/23/16 21:06 Intake Total 1137 ml 1775 ml Output Total 125 ml 2125 ml Balance 1012 ml -350 ml Intake Oral 1137 ml 1775 ml Output Urine Total 125 ml 2125 ml # Bowel Movements 0 Exam General: AAOx3, NAD HENT: Atraumatic; sclera anicteric; moist mucus membranes Neck: Supple Cardiac: Regular rate and rhythm; no murmurs or gallops Respiratory: CTAB Abdomen: Soft, obese; mild pitting edema on side pannus Extremities: Multiple superficial ulcerations Moderate bilateral lower extremity edema. Both feet covered with dressing. Chronic venous stasis changes on bilateral lower extremities. Psych: Normal mood and affect. IVs and Medications Medications Reviewed: Medications were reviewed in detail Lab and Diagnostics Result Diagram: 04/24/16 0545 04/24/16 0545 X-Rays, CTs and MRIs Date of Service: 04/22/16 1649 PROCEDURE: X-RAY CHEST, TWO VIEWS ([id number]) INDICATIONS: shortness of breath COMPARISON: [facility], CR, XR CHEST 1VW (PORTABLE), 04/16/2016, 8: 24. IMPRESSION: Mild right basilar atelectasis/scarring. No acute consolidation Dictated by: Justo Brennan M.D. on 04/22/2016 at 17:42 12-lead ECG Sinus tachycardia with a rate of 103, normal axis, normal interval durations, nonspecific T-wave abnormalities in the lateral leads, but no other ST-T wave changes to suggest ischemia. Cardiac Echo Impressions Echocardiogram 04/23/2016 There is mild concentric left ventricular hypertrophy. Left ventricular systolic function is moderate to severely reduced. Left ventricular ejection fraction is estimated to be 35%. LVEF has not changed significantly since prior study. There is moderate to severe global hypokinesis of the left ventricle. Assessment of diastolic parameters indicates a restrictive filling pattern of the left ventricle consistent with significantly elevated filling pressures. The right ventricle is normal size. Right ventricular systolic function is mild to moderately reduced. Pulmonary artery pressures cannot be estimated because of the lack of a measurable TR jet velocity. The left atrial size is normal. Borderline right atrial enlargement. There is no significant valvular heart disease. The ascending aorta is mildly enlarged. The IVC is dilated (diameter is greater than 2.1 cm) and it collapses less than 50% with a sniff. This suggests a high right atrial pressure of 15 mm Hg. Assessment & Plan 50-year-old obese male with history of heart failure with reduced EF, diabetes with poor control, hypertension with poor control, who presented to the ER with increased lower extremity swelling, weight gain, orthopnea. Admitted for evaluation and treatment of anasarca suspected to be secondary to acute exacerbation CHF. - Hospital day 2 1. Heart failure with reduced EF (estimated 30-35% on echo 12/2015) with acute exacerbation, present on admission. Ongoing * Likely secondary to dietary indiscretion. Failure of home titration of diuretic. * Differential includes: Venous insufficiency, hypoalbuminemia. Please note TSH on 01/07/2016 was 1.530. * Patient gained 1.2kg in 24h, will consult cardiology to improve diuresis * Cardiology following; appreciate time and recommendations * Lasix 40mg IV BID * If lasix ineffective, cardiology to add milrinone IV * Change home Rx lasix to torsemide for better absorption * Digoxin 0.25mg daily * Carvedilol 6.25mg BID; consideration of increase at DC * Repeat chest x-ray pending results * Repeat echo shows not significant changes compared to echo 12/2015 * CHF clinic * Heart healthy/constant carb diet with 2 L fluid restriction * Daily standing weights * Telemetry 2. Hypertension, essential, chronic. Stable * Initial readings: Likely secondary to stress of hospitalization * Continue home medications as above * Monitor 3. Bilateral lower extremity edema and pain, worse than historical on admission. Ongoing * Likely secondary to #1 * Differential includes: DVT (less likely given symmetry and consistency with presentation), differential as in #1 * Management as in #1 * Pain management with Tylenol. Consideration for using a low-dose narcotic if needed (patient is opiate stephen). * DVT prophylaxis with heparin subcutaneous 4. Diabetes mellitus type II on insulin complicated by elevated microalbumin. Hyperglycemia on admission. * Continue home Lantus (reported at 50 units every night subcutaneous), but hold metformin and sulfonylurea * Correctional insulin, medium dose * Check A1c: Pending 5. Hyperlipidemia. * Continue home statin * Most recent lipid panel was 01/07/2016: Total cholesterol 152, triglyceride 135 , HDL 37, LDL 88 6. Tobacco dependence, chewing. * Tobacco cessation discussed. * Nicotine patch provided if needed 7. Obesity * Management of medical conditions as above * Dietary consultation placed 8. Bulla of left foot, acute, present on admission. Presumed stable - Wound care consultation 9. Right great toe, absent toenail, acute, present on admission. Stable - Wound care PRN MEDICATIONS - Acetaminophen as needed for mild pain/fever/headache - Bowel regimen as needed - DVT: Hep q8 - DIET: Heart/CC with fluid restriction - GI: None - Code: FULL CODE Dispo: Likely to remain additional 1-2 days pending medical stability and improvement. Current needs at this time include CHF clinic. Reported to have not met inpatient criteria. Currently changed to OBS. GI Prophylaxis: Not indicated VTE Prophylaxis: Sub-Q Heparin (Unfractionated) Resuscitation Status: CPR: Attempt Resuscitation Attending Statement The patient was seen and examined together with Dr. Waller on 04/24/2016 and I agree with the history, exam and plan as outlined in the note above. Blank Waller DO Apr 24, 2016 10:34 Lucas Carter MD Apr 25, 2016 10:02
[2016-04-24] MEDS: Ondansetron 2 mg/mL 2 mL Inj IVPUSH PRN (10:39)
--- NOTE | 2016-04-24 11:12 | DRSVH ---
PROCEDURE: X-RAY CHEST, TWO VIEWS ([id number]) INDICATIONS: shortness of breath TECHNIQUE: 2 views of the chest were acquired. COMPARISON: [facility], CR, XR CHEST 2VW, 01/07/2016, 12:13. [facility], CR , XR CHEST 1VW (PORTABLE), 04/16/2016, 8:24. [facility], CR, XR CHEST 2VW, 04/22/2016, 17: 07. FINDINGS: Surgical changes and devices: None. Lungs and pleura: Right basilar infiltrate suspicious for pneumonia. Possible small right pleural ef fusion. No pneumothorax. Mediastinum: Mediastinal contours are normal. Heart size is normal. Bones and chest wall: No suspicious bony abnormalities. Soft tissues appear unremarkable. IMPRESSION: Right basilar infiltrate suspicious for pneumonia. Dictated by: Kemi Rosas M.D. on 04/24/2016 at 11:10 Approved by: Kemi Rosas M.D. on 04/24/2016 at 11:10
--- NOTE | 2016-04-24 13:39 | NUR ---
04/24/16 Wound Care [facility] Patient seen for wound care evaluation. Patient reports significant edema to huber LE resulting in blisters to left foot. Patient also reports right toe nail "came off" 2 days ago without previous injury. Left foot intact blisters to base of great and second toes measuring 4cmL x 6cmW x 0.3cm Raised. Minimal yellow serous drainage noted. Cleaned with saline, applied xeroform to blisters, 4x4 between toes, covered with 4x4 gauze. Secured with 2" conform and paper tape. Right great toe wound 100% brown crusty scab and measures 2cmW x 2cmL x0cmD with minimal brown drainage noted. Right distal 2nd toe with black area to tip of toe measuring 0.2cmL x 0.2cmW x 0cmD with no open area and no drainage. Right distal 3rd toe with brown eschar measuring 0.8cmW x 0.3cmL x 0cmD with no open area and no drainage. Cleaned all with saline. Applied xeroform to great toe, covered with 4x4s and secured with 2" conform. Patient with no reports of pain in feet during treatment. No other wounds or areas of pressure identified. Nursing to change dressing with xeroform daily and as needed due to drainage or soiling. Wound care to follow up as needed. Patient noted rolling and moving in bed during eval, and states he is getting up with assist to go to bathroom. Low overall risk for pressure related skin breakdown.
[2016-04-24] MEDS: Insulin GLARgine 100 Unit/mL Syringe SUBQ SCH (20:20)
--- NOTE | 2016-04-24 20:54 | PROG NOTE ---
[address] [address] PROGRESS NOTE PATIENT: GERRY WOLFE : 1965 MR#: [id number] ADMIT: 04/22/2016 JOB ID: [id number] DATE: 04/24/2016 I saw and examined the patient. Please see Teja Carr's notes for details. IMPRESSION: 1. Acute on chronic combined systolic and diastolic heart failure. 2. Moderate left ventricular systolic dysfunction with ejection fraction 35%. 3. Hypertension. 4. Hypercholesterolemia. 5. Diabetes mellitus, uncontrolled. 6. Tobacco dependence, chewing. (He started chewing when he was 4 years old and chews an average of about one can every two days). 7. Severe obesity, with BMI of 37.6. 8. Possible obstructive sleep apnea. PLAN: The patient has at least 20 pounds of water in his body. He will need more aggressive diuresis. I will increase intravenous furosemide to 40 mg every 6 hours. Potassium level will be monitored closely. Once he achieves euvolemic status, he should undergo right and left heart catheterization to determine the cause of his left ventricular systolic dysfunction. It is likely that he has underlying ischemic heart disease, as he has been chewing tobacco for 46 years. SAEED
[2016-04-25] VITALS (8 sets, daily range): BP systolic 119–147; BP diastolic 77–93; PULSE 79–95; RESP 12–18; O2SAT 92–97
[2016-04-25] MEDS: HYDROcodone-APAP 5-325 mg Tablet PO PRN ×5 (02:03→22:10)
[2016-04-25] MEDS: Furosemide 10 mg/mL 4 mL Inj IVPUSH SCH ×4 (02:03→22:09)
--- NOTE | 2016-04-25 04:51 | NUR ---
Pain: Pt c/o leg pain due to edema x2 6-10/23, medication administered; effective. Pt denied BM since admit, Senna administered at HS. Slept most of the night, pleasant and cooperative with care.
[2016-04-25 06:06] LABS: BASOPHILS % (AUTO) 0.1 % (0-3); EOSINOPHILS % (AUTO) 0.9 % (0-5); MONOCYTES % (AUTO) 8.6 % (4-12); Mean Corpuscular Hemoglobin 28.2 pg (27.0-35.0); Mean Corpuscular Volume 94.7 fL (81-100); NEUTROPHILS % (AUTO) 80.3 % (40-74); Platelet Count 253 bil/L (150-400)
[2016-04-25] MEDS: Insulin LISPRO 300 Unit/3 mL Inj SUBQ SCH ×4 (07:47→22:00)
[2016-04-25] MEDS: Lisinopril 40 Tablet PO SCH ×2 (07:54→22:10)
[2016-04-25] MEDS: Heparin 5,000 Unit/mL Inj SUBQ SCH ×2 (07:54→22:10)
[2016-04-25] MEDS: Sodium Chloride LOK Flush 10 mL Syringe IVFLUSH SCH ×3 (09:33→22:18)
[2016-04-25] MEDS: Senna-Docusate 8.6-50 mg Tablet PO PRN (09:33)
--- NOTE | 2016-04-25 09:54 | PCM.PNMED ---
Subjective Date of Service Apr 25, 2016 Subjective Overnight: No overnight events. Today: Patient continues to complain about his pain is in his legs, relieved by pain medication. Denies CP, SOB, fevers or chills. Exam Vital Signs Vital Sign - Last Date Time Temp Pulse Resp B/P Pulse Ox O2 Delivery O2 Flow Rate FiO2 04/25/16 09:25 37.1 82 18 144/77 97 Room Air 04/25/16 05:33 2.00 Intake and Output 04/24/16 04/24/16 04/25/16 Cumulative From/Thru 15:00 23:00 07:00 04/22/16 16:45 - 04/24/16 20:33 Intake Total 440 ml 1456 ml 3671 ml Output Total 600 ml 400 ml 3125 ml Balance -160 ml 1056 ml 546 ml Intake Oral 390 ml 1456 ml 3621 ml IV Total 50 ml 50 ml Output Urine Total 600 ml 400 ml 3125 ml # Bowel Movements 0 0 Exam General: AAOx3, NAD HENT: Atraumatic; sclera anicteric; moist mucus membranes Neck: Supple Cardiac: Regular rate and rhythm; no murmurs or gallops Respiratory: CTAB Abdomen: Soft, obese; fluid retention observed by stretched out stretch chavez at lateral pannus Extremities: Moderate bilateral lower extremity edema. Both feet covered with dressing. Chronic venous stasis changes on bilateral lower extremities. Psych: Normal mood and affect. Lab and Diagnostics Result Diagram: 04/25/16 0520 04/25/16 0520 X-Rays, CTs and MRIs Date of Service: 04/22/16 1649 PROCEDURE: X-RAY CHEST, TWO VIEWS ([id number]) INDICATIONS: shortness of breath COMPARISON: [facility], CR, XR CHEST 1VW (PORTABLE), 04/16/2016, 8: 24 IMPRESSION: Mild right basilar atelectasis/scarring. No acute consolidatio Dictated by: Justo Brennan M.D. on 04/22/2016 at 17:42 Date of Service: 04/24/16 0600 PROCEDURE: X-RAY CHEST, TWO VIEWS ([id number]) INDICATIONS: shortness of breath TECHNIQUE: 2 views of the chest were acquired. COMPARISON: [facility], CR, XR CHEST 2VW, 01/07/2016, 12:13. [facility], CR, XR CHEST 1VW (PORTABLE), 04/16/2016, 8:24. [facility], CR, XR CHEST 2VW, 04/22/2016, 17:07. IMPRESSION: Right basilar infiltrate suspicious for pneumonia. Dictated by: Kemi Rosas M.D. on 04/24/2016 at 11:10 12-lead ECG Sinus tachycardia with a rate of 103, normal axis, normal interval durations, nonspecific T-wave abnormalities in the lateral leads, but no other ST-T wave changes to suggest ischemia. Cardiac Echo Impressions Echocardiogram 04/23/2016 There is mild concentric left ventricular hypertrophy. Left ventricular systolic function is moderate to severely reduced. Left ventricular ejection fraction is estimated to be 35%. LVEF has not changed significantly since prior study. There is moderate to severe global hypokinesis of the left ventricle. Assessment of diastolic parameters indicates a restrictive filling pattern of the left ventricle consistent with significantly elevated filling pressures. The right ventricle is normal size. Right ventricular systolic function is mild to moderately reduced. Pulmonary artery pressures cannot be estimated because of the lack of a measurable TR jet velocity. The left atrial size is normal. Borderline right atrial enlargement. There is no significant valvular heart disease. The ascending aorta is mildly enlarged. The IVC is dilated (diameter is greater than 2.1 cm) and it collapses less than 50% with a sniff. This suggests a high right atrial pressure of 15 mm Hg. Assessment & Plan 50-year-old obese male with history of heart failure with reduced EF, diabetes with poor control, hypertension with poor control, who presented to the ER with increased lower extremity swelling, weight gain, orthopnea. Admitted for evaluation and treatment of anasarca suspected to be secondary to acute exacerbation CHF. - Hospital day 3 1. Heart failure with reduced EF (estimated 30-35% on echo 12/2015) with acute exacerbation, present on admission. Ongoing * Likely secondary to dietary indiscretion. Failure of home titration of diuretic. * Differential includes: Venous insufficiency, hypoalbuminemia. Please note TSH on 01/07/2016 was 1.530. * Patient continues to not diurese well, standing weight pending * Cardiology following; appreciate time and recommendations * Lasix 40mg IV BID now increased to Q6H with Metolazone 5mg daily * Change home Rx Lasix to torsemide for better absorption * Digoxin 0.25mg daily * Carvedilol 6.25mg BID; consideration of increase at DC * R and L heart cath to be performed once stable * Repeat chest x-ray with Right basilar infiltrate suspicious for pneumonia * Repeat echo shows not significant changes compared to echo 12/2015 * CHF clinic * Heart healthy/constant carb diet with 2 L fluid restriction * Daily standing weights * Telemetry 2. Hypertension, essential, chronic. Stable * Initial readings: Likely secondary to stress of hospitalization * Continue home medications as above * Monitor 3. Bilateral lower extremity edema and pain, worse than historical on admission. Ongoing * Likely secondary to #1 * Differential includes: DVT (less likely given symmetry and consistency with presentation), differential as in #1 * Management as in #1 * Pain management with Tylenol. Consideration for using a low-dose narcotic if needed (patient is opiate stephen). * DVT prophylaxis with heparin subcutaneous 4. Diabetes mellitus type II on insulin complicated by elevated microalbumin. Hyperglycemia on admission. * Continue home Lantus (reported at 50 units every night subcutaneous), but hold metformin and sulfonylurea * Correctional insulin, medium dose * Check A1c: Pending 5. Hyperlipidemia. * Continue home statin * Most recent lipid panel was 01/07/2016: Total cholesterol 152, triglyceride 135 , HDL 37, LDL 88 6. Tobacco dependence, chewing. * Tobacco cessation discussed. * Nicotine patch provided if needed 7. Obesity * Management of medical conditions as above * Dietary consultation placed 8. Bulla of left foot, acute, present on admission. Presumed stable - Wound care consultation 9. Right great toe, absent toenail, acute, present on admission. Stable - Wound care PRN MEDICATIONS - Acetaminophen as needed for mild pain/fever/headache - Bowel regimen as needed - DVT: Hep q8 - DIET: Heart/CC with fluid restriction - GI: None - Code: FULL CODE Dispo: Likely to remain additional 1-2 days pending medical stability and improvement. Current needs at this time include CHF clinic. Reported to have not met inpatient criteria. Currently changed to OBS. GI Prophylaxis: Not indicated VTE Prophylaxis: Sub-Q Heparin (Unfractionated) Resuscitation Status: CPR: Attempt Resuscitation Attending Statement The patient was seen and examined together with Dr. Waller on 04/25/2016 and I agree with the history, exam and plan as outlined in the note above. Blank Waller DO Apr 25, 2016 09:44 Lucas Carter MD Apr 26, 2016 10:41
--- NOTE | 2016-04-25 10:30 | PCM.PNCARD ---
Subjective Date of service Apr 25, 2016 Chief Complaint # HFrEF: Unclear mechanism # HTN # T2DM # HLD # Tabacco Abuse # Morbid Obesity # Diabetic Ulcer to R Great Toe History of Present Illness Mr. Jos Ragsdale is a pleasant 50 y/o M that is clinically followed in the [facility] Cardiology clinic by Dr. Falcon. The patients cardiac history consists of: HFrEF (unclear etiology...suspect HTN), HTN, HLD, T2DM. During the patients most recent Clinic Visit with Dr. Falcon 02/2016 he was initiated on appropriate medical management. The patient had an echocardiogram completed in the fall that showed an LVEF of around 35%. Apparently, he did not have any insurance and he wanted to defer any more expensive procedures until he had insurance which he just started with on 04/16/2016. He apparently has been compliant with his medications as of lately and his sodium restriction. He was recently seen in the ER and his Lasix was increased but he continued to gain weight (8 lbs in 24 hours). The patient denies any orthopnea / PND. He denies anginal symptoms of any type, no palpitations, no dizziness, lightheadedness, pre-syncope or rolf syncopal spells. The patient probably does have sleep apnea with a recent hx of desaturations during sleeping hours. He was admitted with significant hypertension. His BP has subsequently decreased and has normalized. His major complaint is lower extremity discomfort and constipation with decreased appetite. His chest CXR was unremarkable in the ER and EKG has not shown any acute changes suggestive of acute coronary syndrome. His troponins are negative up to date. His pBNP is ~ 1400. . Medications: 1. Lasix 40mg IV BID 2. Lisinopril 40mg po BID 3. Carvedilol 6.25mg po BID 4. Spironolactone 25mg po qday 5. Digoxin o.25mg po qday 6. Atorvastatin 10mg po qday 7. Nicdoderm Patches 8. Lantus Insulin 9. Heparin Labs: 1. CMP: Na+ 1137, K+ 5.2, BUN: 27, Creat: 1.14 2 D Echo: 23 April 2016 There is mild concentric left ventricular hypertrophy. Left ventricular systolic function is moderate to severely reduced. Left ventricular ejection fraction is estimated to be 35%. LVEF has not changed significantly since prior study. There is moderate to severe global hypokinesis of the left ventricle. Assessment of diastolic parameters indicates a restrictive filling pattern of the left ventricle consistent with significantly elevated filling pressures. The right ventricle is normal size. Right ventricular systolic function is mild to moderately reduced. Pulmonary artery pressures cannot be estimated because of the lack of a measurable TR jet velocity. The left atrial size is normal. Borderline right atrial enlargement. There is no significant valvular heart disease. The ascending aorta is mildly enlarged. The IVC is dilated (diameter is greater than 2.1 cm) and it collapses less than 50% with a sniff. This suggests a high right atrial pressure of 15 mm Hg Subjective: BP: 134-147 / 77- 93mmHg, HR 78-82 bpm Weight: 140Kg's up 1.8kg / 24 hrs Telemetry: NSR with occassional PAC's and PVC's Today, the patient relates that he is doing well. He denies any type of anginal symptom, no palpitations, no PND/orthopnea, no shortness of breath, no dizziness, lightheadedness, presyncope or rolf syncopal episodes. He continues to have thigh discomfort and lower extremity swelling. Medications: 1. Lasix 40mg IV q6h (increased 04/25/2016) 2. Add metolazone 5 mg by mouth daily (04/25/2016) 3. Lisinopril 40mg po BID 4. Carvedilol 6.25mg po BID 5. Spironolactone 25mg po qday 6. Digoxin o.25mg po qday 7. Atorvastatin 10mg po qday 8. Nicdoderm Patches 9. Lantus Insulin 10. Heparin Labs: 04/25/2016 1. CMP: Na+ 137, K+ 5.2, BUN: 27, Creat: 1.14 11-point ROS: 11-point Review of Systems negative (Comprehensive review of systems conducted and was negative except for the pertinent positives listed in history of present illness above) Exam Vital Signs Vital Sign - Last Date Time Temp Pulse Resp B/P Pulse Ox O2 Delivery O2 Flow Rate FiO2 04/25/16 09:52 Supplement Oxygen 04/25/16 09:25 37.1 82 18 144/77 97 04/25/16 05:33 2.00 Intake and Output 04/24/16 04/24/16 04/25/16 Cumulative From/Thru 14:59 22:59 06:59 04/22/16 16:45 - 04/24/16 20:33 Intake Total 440 ml 1456 ml 3671 ml Output Total 600 ml 400 ml 3125 ml Balance -160 ml 1056 ml 546 ml Intake Oral 390 ml 1456 ml 3621 ml IV Total 50 ml 50 ml Output Urine Total 600 ml 400 ml 3125 ml # Bowel Movements 0 0 Additional Information: General: Cooperative, No Acute Distress, Head: Normocephalic, atraumatic. External ears normal. Eyes: Anicteric sclerae. Mouth: Mucous Membranes Moist/[place], poor dentition Neck: Neck supple. JVP difficult to assess. Chest & Lungs: Clear to auscultation bilaterally with minimal crackles in the bilateral bases without wheezes or rhonchi. Cardiovascular: Normal S1, Normal S2, No Murmurs/Rubs/Gallops appreciated, radial and posterior tibial pulses are 2+ bilaterally. Abdomen: Obese,NT, Non-distended, No masses, + NABS 4 quads, Soft, no pitting edema noted. Extremities: Mild to moderate pitting edema in the bilateral legs from the feet to the hips, significant hyperpigmentation with scaling on the bilateral lower legs consistent with stasis dermatitis Neurological: Alert, Oriented X3, Grossly Neurologically Intact, Normal Speech Psych: Normal mood and affect Lab and Diagnostics Result Diagram: 04/25/1651904/25/16519 Assessment & Plan Assessment # Acute on chronic systolic CHF (congestive heart failure) Plan: The patient does not appear to have much in the way of pulmonary congestion, however, he is definitely third spacing most likely secondary to his LV systolic dysfunction. The Etiology of the patient's CM is most consistent with HTN. He will need to have a complete ischemic workup to exclude any significant CAD since he does have multiple significant cardiac risk factors for the development of premature CAD. (T2DM, HTN, HLD, Tobacco abuse). The patients weight continues to increase despite aggressive diuresis with IV Lasix 40 mg every 6 hours. The patients weight today is up 1.8 kg greater than yesterday Recommendations : 1. Continue Lasix 40 mg IV every 6 hours 2. Add metolazone 5 mg by mouth daily (discussed with Dr. Gallo and Dr. Waller ( R2) 3. Continue oral digoxin 0.25 mg once a day which will hopefully help with his symptomatic HFrEF and reduce recurrent hospitalization. 4. Continue carvedilol to 6.25 mg twice a day as well. When he becomes more euvolemic the Carvedilol may be increased back up to 12.5 mg twice a day. . 5. Repeat BMP to evaluate potassium at 1500 hrs. this afternoon 6. Prior to DC, recommend switching from Furosemide to Torsemide as an alternative form of an oral loop diuretic since it does have better bioabsorption. I will discuss this patients treatment plan with Dr. Falcon (primary crab steamer) to see if he wishes to proceed with an inpatient cardiac catheterization or as an outpatient. However, this too is dependent upon his progression during this hospitalization. # HTN The patients HTN may be a primary cause of his HFrEF. Recommendations: 1. Currently stable and well controlled on current medical management 2. BP goal is <130/80mmHg # Hyperlipidemia Recomendations: 1. Continue Atorvastatin 10mg/day # T2DM (diabetes mellitus) Recomendations: 1. Treatment per primary care team # Obesity Recommendations 1. Treament / Primary care team # Diabetic Foot Ulcer R Great Toe Recommendations: 1. Treatment plan / Primary care team Problems: (1) Acute on chronic systolic CHF (congestive heart failure) Status: Acute ICD Code: I50.23 (2) HTN (hypertension) Qualifiers: Hypertension type: essential hypertension Hypertension goal: less than 130 /80 Qualified Code: I10 - Essential (primary) hypertension Status: Chronic ICD Code: I10 (3) Hyperlipidemia Qualifiers: Hyperlipidemia type: Mixed hyperlipidemia Qualified Code: E78.2 - Mixed hyperlipidemia Status: Chronic ICD Code: E78.5 (4) DM (diabetes mellitus) Qualifiers: Diabetes mellitus type: type 2 Status: Acute ICD Code: E11.9 (5) Obesity Status: Acute ICD Code: E66.9 Cardiology Plan: Diuresis Pain Evaluation: Adequate Pain Control GI Prophylaxis: Not indicated VTE Prophylaxis: Sub-Q Heparin (Unfractionated) Resuscitation Status: CPR: Attempt Resuscitation Teja Carr PA-C Apr 25, 2016 10:30
[2016-04-25] MEDS: Ondansetron 2 mg/mL 2 mL Inj IVPUSH PRN (13:23)
--- NOTE | 2016-04-25 15:01 | NUR ---
dressing change pt refusing dressing change until he takes a shower. Doc has ok'd the shower and ok'd the temp DC of tele while in shower. This RN asked the pt to call when he wants his shower and dressing changed.
--- NOTE | 2016-04-25 19:37 | PROG NOTE ---
[address] [address] PROGRESS NOTE PATIENT: GERRY WOLFE : 1965 MR#: [id number] ADMIT: 04/22/2016 JOB ID: [id number] DATE: 04/25/2016 I saw and examined the patient. Please see Teja Carr's notes for detail. IMPRESSION: 1. Acute on chronic combined systolic and diastolic heart failure. 2. Moderate left ventricular systolic dysfunction with ejection fraction 35%. 3. Hypertension. 4. Hypercholesterolemia. 5. Diabetes mellitus, uncontrolled, with hemoglobin A1c of 10.6. 6. Tobacco dependence, chewing. 7. Severe obesity with body mass index of 37.6 kg/m2. 8. Possible obstructive sleep apnea. PLAN: The patient did not respond well to furosemide 40 mg. IV q.6 h. I will add metolazone 5 mg daily. I will arrange for the patient to have venous duplex ultrasound to identify whether the patient has deep venous thrombosis as the cause of his chronic leg swelling. The patient will undergo right and left heart catheterization on to identify the cause of his cardiomyopathy. SAEED
[2016-04-25] MEDS: Insulin GLARgine 100 Unit/mL Syringe SUBQ SCH (22:17)
[2016-04-26] VITALS (17 sets, daily range): BP systolic 116–167; BP diastolic 69–103; PULSE 76–93; RESP 10–18; O2SAT 88–98
[2016-04-26] MEDS: Furosemide 10 mg/mL 4 mL Inj IVPUSH SCH ×4 (01:31→18:36)
[2016-04-26] MEDS: Ondansetron 2 mg/mL 2 mL Inj IVPUSH PRN (03:02)
[2016-04-26] MEDS: HYDROcodone-APAP 5-325 mg Tablet PO PRN ×4 (03:05→22:05)
--- NOTE | 2016-04-26 05:46 | NUR ---
Nausea/Pain: Pt c/o leg pain 10/23, medication administered; effective. Pt had one episode of emesis, medication administered; effective. Denied SOB and chest pain. Pt continues to have severe anasarca bilateral LE and abdominal area. Pt slept most of the night pleasant and cooperative with care.
--- NOTE | 2016-04-26 08:08 | DRSVH ---
PROCEDURE: US VENOUS LEG DUPLEX BILATERAL INDICATIONS: Leg swelling. Assess for DVT TECHNIQUE: Real-time imaging, as well as color and pulse Doppler interrogation, were performed of the deep veins of both legs from the inguinal ligament to the popliteal fossa. COMPARISON: None. FINDINGS: The deep veins are normally compressible, and free of intraluminal thrombus. Color and pu lse Doppler demonstrate normal phasic intravascular flow. There is normal augmentation response to d istal compression maneuver. IMPRESSION: No evidence of deep vein thrombosis involving either the right or left lower extremities. Dictated by: Suzan Gibson MD, PhD on 04/26/2016 at 8:06 Approved by: Suzan Gibson MD, PhD on 04/26/2016 at 8:06
[2016-04-26] MEDS: Insulin LISPRO 300 Unit/3 mL Inj SUBQ SCH ×4 (10:22→22:00)
[2016-04-26] MEDS: Lisinopril 40 Tablet PO SCH ×2 (10:26→20:46)
[2016-04-26] MEDS: Sodium Chloride LOK Flush 10 mL Syringe IVFLUSH SCH ×2 (10:27→16:30)
[2016-04-26] MEDS: Heparin 5,000 Unit/mL Inj SUBQ SCH ×2 (10:27→22:06)
--- NOTE | 2016-04-26 10:47 | PROG NOTE ---
[address] [address] PROGRESS NOTE PATIENT: GERRY WOLFE : 1965 MR#: [id number] ADMIT: 04/22/2016 JOB ID: [id number] DATE: 04/26/2016 SUBJECTIVE: The patient reports feeling better today. His legs aching and tightness is better. His breathing remains the same throughout the whole time. He does not feel like he has any problem with his breathing. His mouth is dry. PHYSICAL EXAMINATION: Temperature is 36.5. Blood pressure is 135/80. Pulse 78. His body weight is 135.8 kg. He lost 5 kg from yesterday. Head and face have normal configuration. Dry mucosa. Neck supple. JVP was difficult to evaluate due to nuchal obesity. Lungs are clear to auscultation. Heart: The first and second heart sounds normal. No murmur. Abdomen: Soft, nontender. Extremities: 4+ nonpitting edema with slight improvement from yesterday. Hyperpigmentation of the skin. BLOOD TESTS: Shows sodium 138, potassium 4.4, chloride 96, bicarbonate 34, BUN 24, creatinine 1.02, glucose 149. IMAGING: Venous ultrasound showed no evidence of deep venous thrombosis of the lower extremities. IMPRESSION: 1. Acute on chronic combined systolic and diastolic heart failure, improving 2. Moderate left ventricular systolic dysfunction with ejection fraction 35%. 3. Hypertension. 4. Hypercholesterolemia. 5. Diabetes mellitus, uncontrolled with hemoglobin A1c of 10.6. 6. Tobacco dependence, chewing. 7. Severe obesity. 8. Possible obstructive sleep apnea. PLAN: The patient responded well to current diuretic regimen with intravenous furosemide and metolazone. His potassium and magnesium will be monitored closely. I will arrange for the patient to undergo right and left heart catheterization to evaluate the cause of his heart failure. [facility] HOSPITALFavian
[2016-04-26] MEDS ORDERED: Heparin 1,000 Unit/mL 10 mL Inj ONE (12:09)
[2016-04-26] MEDS ORDERED: Nitroglycerin 50,000 mcg/250 mL D5W Premix IV ONE (12:09)
[2016-04-26] MEDS ORDERED: Heparin 5,000 Units/500 mL NS Premix IV ONE (12:09)
[2016-04-26] MEDS ORDERED: Heparin 1,000 Units/500 mL NS Premix IV ONE ×2 (12:09→13:23)
[2016-04-26] MEDS ORDERED: 0.9% Sodium Chloride 1,000 ML ONE ×2 (12:13→14:46)
--- NOTE | 2016-04-26 12:26 | NUR ---
Social Work-continue d/c planning: Data:EMR Reviewed. Pt is on day 4 of hospitalization for CHF per H&P. Pt is not medically stable for discharge anticipate several more days. Pt resides at home with his family in [place] where he remains independent with ADLs. Pt to have heart cath tomorrow. Per RN notes, pt has been up independent in his room. No anticipated discharge needs. SW will continue to follow if needs arise. Assessment:Pt who is independent at baseline. Plan:Pt to discharge home when medically stable via POV. No anticipated discharge needs. SW will continue to follow if needs arise. JOCELYN Stockton
[2016-04-26] MEDS ORDERED: 0.9% Sodium Chloride 50 ML ONE (12:27)
--- NOTE | 2016-04-26 13:02 | NUR ---
Transfer to Division Sergeant Patient transferred to Division Sergeant at 1302h.
[2016-04-26] MEDS ORDERED: fentaNYL-PF 50 mCg/mL 2 mL Inj ONE (13:06)
[2016-04-26] MEDS ORDERED: DOBUTamine 500 mg/250 mL D5W Premix IV ONE (14:16)
--- NOTE | 2016-04-26 14:32 | NUR ---
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 No c/o pain. R groin site with Tegaderm dressing, C/D/I, R pedal pulse +1. Dobutamine gtt started per MD order at 5 mcg/kg/min. Dr. Gallo at bedside to talk to pt about cath results. Tolerating sips of clear liquids at this time. Addendum: 04/26/16 at 1455 by MARCOS JIMENEZ RN NS at 40 ml/hr hung per order
--- NOTE | 2016-04-26 14:40 | CS94 ---
[place] [id number] DIAGNOSTIC CARDIAC CATHETERIZATION PATIENT: GERRY WOLFE : 1965 MR#: [id number] ADMIT: 04/22/2016 JOB ID: [id number] SERVICE DATE: 04/26/2016 PATIENT PROFILE: The patient is a 50-year-old male with history of diabetes, hypertension, hypercholesterolemia, nicotine addiction, and severe obesity. He presented with congestive heart failure. PROCEDURE: 1. Right heart catheterization. 2. Retrograde left heart catheterization. 3. Selective coronary angiogram. 4. Left ventricular angiogram. VASCULAR CLOSURE DEVICE: Perclose. COMPLICATION: None. METHOD: Combined right and left heart catheterization was performed from the right groin under 1% lidocaine local anesthesia using two 6-Mexican sheathes. A 6-Mexican [place]-Rich catheter was used for the right heart pressures. Cardiac output was determined by both thermodilution technique and PATRICK method. Selective coronary angiogram was performed in multiple projections, including cranial and caudal angulations with hand injected contrast via JL4 and 3DRC catheters. A 6-Mexican angulated pigtail catheter was advanced to the left ventricle and left ventricular angiogram was performed in the 30 degree SARGENT view by injecting contrast at the rate of 15 cc/second for 2 seconds. This catheter was withdrawn. Right femoral angiogram was performed. Following sheath removal, hemostasis was achieved by using a Perclose device. The patient tolerated the procedure well. He was transferred to [facility] in good condition. TOTAL CONTRAST USED: 110 cc. FLUOROSCOPY TIME: 3.2 minutes. RESULTS: 1. Mean right atrial pressure is 21 mmHg. Right ventricular pressure is 72/5 mmHg. Pulmonary artery pressure is 69/51 mmHg. 2. Mean pulmonary capillary wedge pressure is 48 mmHg. 3. Aortic pressure is 141/84 mmHg. Left ventricular pressure is 146/20 mmHg. 4. Left ventricular end-diastolic pressure is 38 mmHg. 5. Arterial oxygen saturation is 93% on oxygen nasal cannula. Mixed venous saturation is 56%. 6. Cardiac output by the thermodilution technique is 6.14 L/minute with an index of 2.3 L/minute/m2. 7. Cardiac output by the PATRICK method is 5.48 L/minute with an index of 1.9 L/minute/m2. 8. Selective coronary angiogram: a. Left main coronary artery has distal 20% stenosis. b. The left anterior descending artery is transapical and has diffuse disease of 60%-90% stenosis throughout with moderate calcification. The first, second and third diagonal branches are small and have diffuse disease. c. The circumflex artery is occluded in the proximal portion. d. The dominant right coronary artery has 60% stenosis in the mid portion with diffuse minor irregularities. The posterior descending branch and posterolateral branches have diffuse disease. 9. Left ventricular angiogram demonstrates dilated left ventricle with visually estimated ejection fraction 25% with severe global hypokinesis. 10. There is no gradient across the aortic valve on catheter withdrawal. CONCLUSION: 1. Diffuse severe disease of the left anterior descending and right posterior descending and posterolateral branches. 2. Chronic occlusion of the circumflex artery. 3. Dilated left ventricle with left ventricular ejection fraction 25%. 4. Severe pulmonary hypertension. 5. Cardiac index is 2.3 L/minute/m2 by thermodilution technique and 1.9 L/minute/m2 by PATRICK method. PLAN: Medical management. His coronary anatomy is not suitable for percutaneous intervention or coronary bypass surgery. SAEED
[2016-04-26] MEDS ORDERED: 0.9% Sodium Chloride 250 ML BOLUS IV PRN (14:45)
[2016-04-26] MEDS ORDERED: Sodium Chloride LOK Flush 10 mL Syringe IVFLUSH PRN (14:45)
[2016-04-26] MEDS ORDERED: 0.9% Sodium Chloride 400 ML (4 HRS) IV ONE (14:45)
[2016-04-26] MEDS ORDERED: Atropine 1 mg/10 mL (Code) Syringe IVPUSH PRN (14:45)
--- NOTE | 2016-04-26 15:06 | NUR ---
TRANSFER TO [facility] Patient transferred to [facility] at 1507. Gave report to Margie Morejon RN.
[2016-04-26] MEDS: DOBUTamine 500 mg/250 mL D5W IV SCH (15:20)
--- NOTE | 2016-04-26 15:57 | PCM.PNMED ---
Subjective Date of Service Apr 26, 2016 Subjective No overnight events. Patient continues to experience some nausea, relieved by zofran. Denies CP, SOB , fevers or chills. Reports he has been urinating with much more frequency. Exam Vital Signs Vital Sign - Last Date Time Temp Pulse Resp B/P Pulse Ox O2 Delivery O2 Flow Rate FiO2 04/26/16 04:57 36.5 78 16 135/80 98 Nasal Cannula 2.00 Intake and Output 04/25/16 04/25/16 04/26/16 Cumulative From/Thru 15:00 23:00 07:00 04/22/16 16:45 - 04/26/16 06:33 Intake Total 400 ml 836 ml 350 ml 5257 ml Output Total 400 ml 1975 ml 3175 ml 8675 ml Balance 0 ml -1139 ml -2825 ml -3418 ml Intake Oral 400 ml 836 ml 350 ml 5207 ml IV Total 50 ml Output Urine Total 400 ml 1325 ml 2975 ml 7825 ml Emesis 650 ml 200 ml 850 ml # Bowel Movements 0 Exam General: AAOx3, NAD HENT: Atraumatic; sclera anicteric; moist mucus membranes Neck: Supple Cardiac: Regular rate and rhythm; no murmurs or gallops Respiratory: CTAB Abdomen: Soft, obese; moderate improvement seen on pannus for fluid overload Extremities: Moderate bilateral lower extremity edema moderately improved from day prior. Both feet covered with dressing. Chronic venous stasis changes on bilateral lower extremities. Psych: Normal mood and affect. IVs and Medications Medications Reviewed: Medications were reviewed in detail Lab and Diagnostics Result Diagram: 04/25/16 0520 04/26/16 0607 X-Rays, CTs and MRIs Date of Service: 04/22/16 1649 PROCEDURE: X-RAY CHEST, TWO VIEWS ([id number]) INDICATIONS: shortness of breath COMPARISON: [facility], CR, XR CHEST 1VW (PORTABLE), 04/16/2016, 8: 24 IMPRESSION: Mild right basilar atelectasis/scarring. No acute consolidatio Dictated by: Justo Brennan M.D. on 04/22/2016 at 17:42 Date of Service: 04/24/16 0600 PROCEDURE: X-RAY CHEST, TWO VIEWS ([id number]) INDICATIONS: shortness of breath TECHNIQUE: 2 views of the chest were acquired. COMPARISON: [facility], CR, XR CHEST 2VW, 01/07/2016, 12:13. [facility], CR, XR CHEST 1VW (PORTABLE), 04/16/2016, 8:24. [facility], CR, XR CHEST 2VW, 04/22/2016, 17:07. IMPRESSION: Right basilar infiltrate suspicious for pneumonia. Dictated by: Kemi Rosas M.D. on 04/24/2016 at 11:10 12-lead ECG Sinus tachycardia with a rate of 103, normal axis, normal interval durations, nonspecific T-wave abnormalities in the lateral leads, but no other ST-T wave changes to suggest ischemia. Cardiac Echo Impressions Echocardiogram 04/23/2016 There is mild concentric left ventricular hypertrophy. Left ventricular systolic function is moderate to severely reduced. Left ventricular ejection fraction is estimated to be 35%. LVEF has not changed significantly since prior study. There is moderate to severe global hypokinesis of the left ventricle. Assessment of diastolic parameters indicates a restrictive filling pattern of the left ventricle consistent with significantly elevated filling pressures. The right ventricle is normal size. Right ventricular systolic function is mild to moderately reduced. Pulmonary artery pressures cannot be estimated because of the lack of a measurable TR jet velocity. The left atrial size is normal. Borderline right atrial enlargement. There is no significant valvular heart disease. The ascending aorta is mildly enlarged. The IVC is dilated (diameter is greater than 2.1 cm) and it collapses less than 50% with a sniff. This suggests a high right atrial pressure of 15 mm Hg. Assessment & Plan 50-year-old obese male with history of heart failure with reduced EF, diabetes with poor control, hypertension with poor control, who presented to the ER with increased lower extremity swelling, weight gain, orthopnea. Admitted for evaluation and treatment of anasarca suspected to be secondary to acute exacerbation CHF. - Hospital day 4 1. Heart failure with reduced EF (estimated 30-35% on echo 12/2015) with acute exacerbation, present on admission. Improving * Likely secondary to dietary indiscretion. Failure of home titration of diuretic. * Differential includes: Venous insufficiency, hypoalbuminemia. Please note TSH on 01/07/2016 was 1.530. * Currently on beta jerod, ACEi, mineralocorticoid receptor antagonist and statin * Cardiology following; appreciate time and recommendations * Lasix 40mg IV Q6H with Metolazone 5mg daily * Digoxin 0.25mg daily * Change home Rx Lasix to torsemide for better absorption * Carvedilol 6.25mg BID; consideration of increase at DC * R and L heart cath to be performed this afternoon * Repeat chest x-ray showed Right basilar infiltrate suspicious for pneumonia * Repeat echo shows not significant changes compared to echo 12/2015 * CHF clinic * Heart healthy/constant carb diet with 2 L fluid restriction * Daily standing weights with I/O * Telemetry 2. Hypertension, essential, chronic. Stable * Initial readings: Likely secondary to stress of hospitalization * Continue home medications as above * Monitor 3. Sleep apnea * Desaturation during sleep - has never had sleep study * Maybe contributing to #1,2 * Recommend out patient sleep study 4.. Bilateral lower extremity edema and pain, worse than historical on admission. Ongoing * Likely secondary to #1 * Differential includes: DVT (less likely given symmetry and consistency with presentation), differential as in #1 * Management as in #1 * Pain management with Tylenol. Consideration for using a low-dose narcotic if needed (patient is opiate stephen). * DVT prophylaxis with heparin subcutaneous 5. Diabetes mellitus type II on insulin complicated by elevated microalbumin. Hyperglycemia on admission. * Continue home Lantus (reported at 50 units every night subcutaneous), but hold metformin and sulfonylurea * Correctional insulin, medium dose * Check A1c: 10.6 6. Hyperlipidemia. * Continue home statin * Most recent lipid panel was 01/07/2016: Total cholesterol 152, triglyceride 135 , HDL 37, LDL 88 7. Bilateral leg pain * US duplex negative for DVT * Pain management PRN 8. Tobacco dependence, chewing. * Tobacco cessation discussed. * Nicotine patch provided if needed 9. Obesity * Management of medical conditions as above * Dietary consultation placed 10. Bulla of left foot, acute, present on admission. Presumed stable - Wound care consultation 11. Right great toe, absent toenail, acute, present on admission. Stable - Wound care PRN MEDICATIONS - Acetaminophen as needed for mild pain/fever/headache - Bowel regimen as needed - DVT: Hep q8 - DIET: Heart/CC with fluid restriction - GI: None - Code: FULL CODE Dispo: Likely to be discharged tomorrow depending on hearth cath findings. Current needs at this time include CHF clinic. Reported to have not met inpatient criteria. Currently changed to OBS. GI Prophylaxis: Not indicated VTE Prophylaxis: Sub-Q Heparin (Unfractionated) Resuscitation Status: CPR: Attempt Resuscitation Attending Statement The patient was seen and examined together with Dr. Waller on 04/26/2016 and I agree with the history, exam and plan as outlined in the note above. Blank Waller DO Apr 26, 2016 08:16 Lucas Carter MD Apr 27, 2016 13:43
--- NOTE | 2016-04-26 17:15 | NUR ---
Transfer to [facility] from [facility]: Pt taken to PCC in bed at 1710, family aware of transfer to new room, report called to Margie Morejon RN. VSS on 2L NC, R groin occlusive dsg C/D/I, no bleeding or hematoma at site. Dobutamine gtt continues at 5 mcg/kg/min.
--- NOTE | 2016-04-26 17:34 | NUR ---
Admit to [facility]CC Pt admitted to room 2024. Report received from Guy LOBO in [facility] and Jared LOBO in [facility]. Vitals within normal limits. IV fluid @40, Dobutamine drip at 21ml/hr (5mcg/kg/min). Pt on bedrest until 1814. IV fluid to be dc'd at 2100. Pedal pulses faint but palpable.
[2016-04-26] MEDS: Insulin GLARgine 100 Unit/mL Syringe SUBQ SCH (22:14)
[2016-04-26] MEDS: Senna-Docusate 8.6-50 mg Tablet PO PRN (22:15)
--- NOTE | 2016-04-26 22:35 | NUR ---
Respiratory: P: Fluid overload; Pt on 100 mls/hour of NS and states he normally takes 40 mg of lasix daily at home. Crackles noted to the bases of B lungs. I: Dr. Castillo notified. New orders obtained to SL IVF and to give 40 mg of IV lasix now times one. E: Fluid stopped and lasix administered. Ativan given for anxiety. Current blood pressure 157/76. Will cont. to monitor. Addendum: 04/27/16 at 0011 by JAREN HORNE RN DISREGARD NOTE: ENTERED UNDER WRONG PT.
--- NOTE | 2016-04-26 22:40 | NUR ---
DISREGARD PRIOR NOTED TITLED "RESPIRATORY" Noted was entered in error under the wrong pt at 1745.
[2016-04-27] VITALS (12 sets, daily range): BP systolic 130–172; BP diastolic 74–91; PULSE 81–96; RESP 12–18; O2SAT 90–99
[2016-04-27] MEDS: Furosemide 10 mg/mL 4 mL Inj IVPUSH SCH ×3 (01:15→13:01)
[2016-04-27] MEDS: Sodium Chloride LOK Flush 10 mL Syringe IVFLUSH SCH ×3 (01:15→16:56)
[2016-04-27] MEDS: DOBUTamine 500 mg/250 mL D5W IV SCH ×2 (01:52→16:01)
[2016-04-27] MEDS: HYDROcodone-APAP 5-325 mg Tablet PO PRN ×5 (02:13→22:20)
[2016-04-27] MEDS: Ondansetron 2 mg/mL 2 mL Inj IVPUSH PRN (02:55)
[2016-04-27 05:12] LABS: Mean Corpuscular Hemoglobin 28.8 pg (27.0-35.0); Mean Corpuscular Volume 91.5 fL (81-100)
--- NOTE | 2016-04-27 05:14 | NUR ---
Cardiac/Shift Notation: Pt stable throughout the night in a NSR. SBP did elevate to the 150s. R groin has remained soft without hematoma or oozing. B pedal pulses audible per doppler. No chest pain. Pt remains on 5 mcg/kg/min of Dobutamine. Pt is diuresing well; see I&Os for output. Pt did have one episode of emesis at around 0300; pt medicated with 4 mg of IV Zofran and had no further nausea/emesis. Pt continues to require Holman for BLE pain. No BM; pt given senna last night. Will cont. to monitor.
[2016-04-27] MEDS: Insulin LISPRO 300 Unit/3 mL Inj SUBQ SCH ×4 (08:00→21:53)
[2016-04-27] MEDS: Heparin 5,000 Unit/mL Inj SUBQ SCH ×2 (08:33→21:51)
[2016-04-27] MEDS: Lisinopril 40 Tablet PO SCH ×2 (08:33→21:52)
--- NOTE | 2016-04-27 09:18 | PCM.PNCARD ---
Subjective Date of service Apr 27, 2016 Chief Complaint # HFrEF: # Severe ICM (EF 25%) # Severe Diffuse 3 Vz CAD # HTN # T2DM # HLD # Tabacco Abuse # Morbid Obesity # Diabetic Ulcer to R Great Toe History of Present Illness Mr. Jos Ragsdale is a pleasant 50 y/o M that is clinically followed in the [facility] Cardiology clinic by Dr. Falcon. The patients cardiac history consists of: HFrEF, ICM, Severe diffuse 3 Vz CAD, Severe Pulm HTN, HTN, HLD, T2DM and poor medical compliance secondary to lack of insurance. During the patients most recent Clinic Visit with Dr. Falcon 02/2016 he was initiated on appropriate medical management. The patient had an echocardiogram completed in the fall of 2015 that showed an LVEF of around 35%. Apparently, he did not have any insurance and he wanted to defer any more expensive procedures until he had insurance which he just started with on 04/16/2016. He apparently has been compliant with his medications as of lately and his sodium restriction. He was recently seen in the ER and his Lasix was increased but he continued to gain weight (8 lbs in 24 hours). The patient denies any orthopnea / PND. He denies anginal symptoms of any type, no palpitations, no dizziness, lightheadedness, pre-syncope or rolf syncopal spells. The patient probably does have sleep apnea with a recent hx of desaturations during sleeping hours. He was admitted with significant hypertension. His BP has subsequently decreased and has normalized. His major complaint is lower extremity discomfort and constipation with decreased appetite. His chest CXR was unremarkable in the ER and EKG has not shown any acute changes suggestive of acute coronary syndrome. His troponins are negative up to date. His pBNP is ~ 1400. . Selective coronary angiogram: a. Left main coronary artery has distal 20% stenosis. b. The left anterior descending artery is transapical and has diffuse disease of 60%-90% stenosis throughout with moderate calcification. The first, second and third diagonal branches are small and have diffuse disease. c. The circumflex artery is occluded in the proximal portion. d. The dominant right coronary artery has 60% stenosis in the mid portion with diffuse minor irregularities. The posterior descending branch and the posterolateral branches have diffuse disease. e. Left ventricular angiogram demonstrates dilated left ventricle with visually estimated ejection fraction 25% with severe global hypokinesis. f. There is no gradient across the aortic valve on catheter withdrawal. 2 D Echo: 23 April 2016 There is mild concentric left ventricular hypertrophy. Left ventricular systolic function is moderate to severely reduced. Left ventricular ejection fraction is estimated to be 35%. LVEF has not changed significantly since prior study. There is moderate to severe global hypokinesis of the left ventricle. Assessment of diastolic parameters indicates a restrictive filling pattern of the left ventricle consistent with significantly elevated filling pressures. The right ventricle is normal size. Right ventricular systolic function is mild to moderately reduced. Pulmonary artery pressures cannot be estimated because of the lack of a measurable TR jet velocity. The left atrial size is normal. Borderline right atrial enlargement. There is no significant valvular heart disease. The ascending aorta is mildly enlarged. The IVC is dilated (diameter is greater than 2.1 cm) and it collapses less than 50% with a sniff. This suggests a high right atrial pressure of 15 mm Hg Subjective: BP: 155-172/85-91 mmHg, HR: 80 bpm Weight: 131.2Kg's down 8.8Kg's since 04/25/2016. Telem: Today, patient reports that he is doing well without any type of anginal symptom , no shortness of breath, no dyspnea, no PND/orthopnea, no palpitations, he has noted that the swelling in his legs decreasing and the pain is improving. The patient is responding very well to diuresis with the addition of renal dose dobutamine. His weight is down 8.8 kg over the past 48 hours. Medications: 1. Lasix 40mg IV q6h 2. Metolazone 5mg po qday 3. Dobutamine 5mcg/Kg/min 4. Lisinopril 40mg po BID 5. Carvedilol 12.5mg po BID 6. Spironolactone 25mg po qday 7. Digoxin 0.25mg po qday 8. Atorvastatin 10mg po qday 9. Nicdoderm Patches 10. Lantus Insulin 11. Heparin Labs: Genera 04/04/2017 1. CMP: Na+ 141, K+ 4., BUN: 17, Creat: 0.86 Results from coronary angiography (): 1. Diffuse severe disease of the left anterior descending and right posterior descending and posterolateral branches. 2. Chronic occlusion of the circumflex artery. 3. Dilated left ventricle with left ventricular ejection fraction 25%. 4. Severe pulmonary hypertension. 5. Cardiac index is 2.3 L/minute/m2 by thermodilution technique and 1.9 L/ minute/m2 by PATRICK method. Medical management. His coronary anatomy is not suitable for percutaneous intervention or coronary bypass surgery. 11-point ROS: 11-point Review of Systems negative ((Comprehensive review of systems conducted and was negative except for the pertinent positives listed in history of present illness above)) Exam Vital Signs Vital Sign - Last Date Time Temp Pulse Resp B/P Pulse Ox O2 Delivery O2 Flow Rate FiO2 04/27/16 08:27 36.8 89 12 172/91 93 Room Air 04/27/16 04:37 2.00 Intake and Output 04/26/16 04/26/16 04/27/16 Cumulative From/Thru 15:00 23:00 07:00 04/22/16 16:45 - 04/27/16 06:43 Intake Total 224 ml 830 ml 6311 ml Output Total 0 ml 3475 ml 97480 ml Balance 224 ml -2645 ml -5839 ml Intake Oral 0 ml 600 ml 5807 ml IV Total 224 ml 230 ml 504 ml Output Urine Total 0 ml 3375 ml 94548 ml Emesis 100 ml 950 ml # Voids 1 1 # Bowel Movements 0 Additional Information: General: Cooperative, No Acute Distress, Head: Normocephalic, atraumatic. External ears normal. Eyes: Anicteric sclerae. Mouth: Mucous Membranes Moist/[place], poor dentition Neck: Neck supple. JVP difficult to assess. Chest & Lungs: Clear to auscultation bilaterally with minimal crackles in the bilateral bases without wheezes or rhonchi. Cardiovascular: Normal S1, Normal S2, No Murmurs/Rubs/Gallops appreciated, radial and posterior tibial pulses are 2+ bilaterally. Abdomen: Obese,NT, Non-distended, No masses, + NABS 4 quads, Soft, no pitting edema noted. Right groin: There is no bruit, no hematoma or ecchymosis. Extremities: Mild to moderate edema in the bilateral legs from the feet to the hips, There is significant hyperpigmentation with scaling on the bilateral lower legs consistent with stasis dermatitis Neurological: Alert, Oriented X3, Grossly Neurologically Intact, Normal Speech Psych: Normal mood and affect Lab and Diagnostics Result Diagram: 04/27/1641104/27/16411 Assessment & Plan Assessment # Acute on chronic systolic CHF (congestive heart failure) The patient appears to be responding very well to the renal dose dobutamine, the increase in his Lasix to 40 mg IV every 6 hours and the addition of Zaroxolyn. His weight is down 8.8 kg over the past 48 hours. He has CMP today does not show any significant change in his renal function that would indicate intravascular depletion. His potassium is 4.2 and trending down slowly, we will need to continue to monitor his potassium closely. Recommendations : 1. Continue Lasix 40 mg IV every 6 hours 2. Continue metolazone 5 mg by mouth daily 3. Continue oral digoxin 0.25 mg once a day. 4. Continue carvedilol to 12.5 mg twice a day. 5. Continue spironolactone 25 mg one by mouth daily 6. Continue lisinopril 40 mg by mouth twice a day 7. Continue dobutamine 5 mcg/kg/m 8. We will need to continue to watch BUN/creatinine and potassium with continued aggressive diuresis 9. Prior to DC, recommend switching from Furosemide to Torsemide as an alternative form of an oral loop diuretic since it does have better bioabsorption. I will discuss this patients treatment plan with Dr. Falcon (primary test automation architect) to see if he wishes to proceed with an inpatient cardiac catheterization or as an outpatient. However, this too is dependent upon his progression during this hospitalization. # Severe diffuse three-vessel coronary artery disease 1. Diffuse severe disease of the left anterior descending and right posterior descending and posterolateral branches. 2. Chronic occlusion of the circumflex artery. 3. Dilated left ventricle with left ventricular ejection fraction 25%. 4. Severe pulmonary hypertension. 5. Cardiac index is 2.3 L/minute/m2 by thermodilution technique and 1.9 L/ minute/m2 by PATRICK method. Recommendation: 1. Medical management. His coronary anatomy is not suitable for percutaneous intervention or coronary bypass surgery. We will need to maximize his medical therapy # Severe pulmonary hypertension Recommendation: 1. As above, maximize medical management, particularly after load reduction medication. # HTN . Recommendations: 1. BP goal is <130/80mmHg # Hyperlipidemia Recomendations: 1. Continue Atorvastatin 10mg/day # T2DM (diabetes mellitus) Recomendations: 1. Treatment per primary care team # Obesity Recommendations 1. Treament / Primary care team # Diabetic Foot Ulcer R Great Toe Recommendations: 1. Treatment plan / Primary care team Problems: (1) Acute on chronic systolic CHF (congestive heart failure) Status: Acute ICD Code: I50.23 (2) HTN (hypertension) Qualifiers: Hypertension type: essential hypertension Hypertension goal: less than 130 /80 Qualified Code: I10 - Essential (primary) hypertension Status: Chronic ICD Code: I10 (3) Hyperlipidemia Qualifiers: Hyperlipidemia type: Mixed hyperlipidemia Qualified Code: E78.2 - Mixed hyperlipidemia Status: Chronic ICD Code: E78.5 (4) DM (diabetes mellitus) Qualifiers: Diabetes mellitus type: type 2 Status: Acute ICD Code: E11.9 (5) Obesity Status: Acute ICD Code: E66.9 Cardiology Plan: Diuresis Pain Evaluation: Adequate Pain Control GI Prophylaxis: Not indicated VTE Prophylaxis: Sub-Q Heparin (Unfractionated) VTE Mechanical Devices: Intermittant Pneumatic CD Resuscitation Status: CPR: Attempt Resuscitation Teja Carr PA-C Apr 27, 2016 09:18
--- NOTE | 2016-04-27 09:37 | PROG NOTE ---
[address] [address] PROGRESS NOTE PATIENT: GERRY WOLFE : 1965 MR#: [id number] ADMIT: 04/22/2016 JOB ID: [id number] DATE: 04/27/2016 SUBJECTIVE: The patient underwent right and left heart catheterization yesterday. It demonstrated diffuse severe disease of the left anterior descending and right posterior descending and posterolateral branches with chronic occlusion of the circumflex artery. His left ventricle is dilated, with ejection fraction of 25% to 30%. He was started on intravenous dobutamine at 5 mcg/kg/minute yesterday evening. He responded quite well. His breathing remained the same. His leg swelling is significantly improved. He is concerned about his heart condition. OBJECTIVE: Temperature is 36.8. Blood pressure is 172/91. Pulse 89. Body weight is 131.2 kg (he was 135.8 kg yesterday). Head and face have normal configuration. Dry mucosa. Neck: Supple. No jugular venous distention. Lungs are clear to auscultation. Heart: The first and second heart sounds normal. No murmur. Abdomen: Soft, nontender. Extremities: 3+ edema. Blood tests show hemoglobin 14.3, WBC 5.2, platelets 202. Sodium 141, potassium 4.2, chloride 92, bicarb 41, BUN 17, creatinine 0.86, glucose 137. IMPRESSION: 1. Acute on chronic combined systolic and diastolic heart failure, improving. 2. Ischemic cardiomyopathy, with ejection fraction 25% to 30%. 3. Hypertension. 4. Hypercholesterolemia. 5. Diabetes mellitus, uncontrolled. 6. Tobacco dependence, chewing. 7. Severe obesity. 8. Obstructive sleep apnea. PLAN: I will continue the patient on intravenous dobutamine, intravenous furosemide, metolazone, spironolactone, lisinopril, carvedilol, digoxin and atorvastatin. I will add aspirin 81 mg once daily and amlodipine 5 mg daily. His condition was explained to the patient and his son in detail. SAEED
--- NOTE | 2016-04-27 16:27 | PCM.PNMED ---
Subjective Date of Service Apr 27, 2016 Subjective 50-year-old man with type II diabetes, hypertension and chronic systolic congestive heart failure presents with acutely decompensated heart failure. He reports dyspnea improved since admission. Edema also improved. Able to ambulate to bathroom with no significant dyspnea. Exam Vital Signs Vital Sign - Last Date Time Temp Pulse Resp B/P Pulse Ox O2 Delivery O2 Flow Rate FiO2 04/27/16 13:58 90 04/27/16 12:18 36.7 16 165/86 90 Room Air 04/27/16 04:37 2.00 Intake and Output 04/26/16 04/26/16 04/27/16 Cumulative From/Thru 15:00 23:00 07:00 04/22/16 16:45 - 04/27/16 06:43 Intake Total 224 ml 830 ml 6311 ml Output Total 0 ml 3475 ml 12541 ml Balance 224 ml -2645 ml -5839 ml Intake Oral 0 ml 600 ml 5807 ml IV Total 224 ml 230 ml 504 ml Output Urine Total 0 ml 3375 ml 49334 ml Emesis 100 ml 950 ml # Voids 1 1 # Bowel Movements 0 Exam General: Moderately obese middle-aged man in no acute distress HEENT: sclerae anicteric, oral mucosa moist Neck: JVD 5 cm above sternal notch Chest: clear to auscultation Cardiac: S1S2, regular, no murmur Abdomen: BS normal, slightly distended, non-tender Extremities: 1+ edema with stasis changes bilaterally Neuro: A&O, cranial nerves symmetric, motor strength 5/5, coordination normal IVs and Medications Medications Reviewed: Medications were reviewed in detail Lab and Diagnostics Result Diagram: 04/27/1641104/27/16411 X-Rays, CTs and MRIs Date of Service: 04/22/16 1649 PROCEDURE: X-RAY CHEST, TWO VIEWS ([id number]) INDICATIONS: shortness of breath COMPARISON: [facility], CR, XR CHEST 1VW (PORTABLE), 04/16/2016, 8: 24 IMPRESSION: Mild right basilar atelectasis/scarring. No acute consolidatio Dictated by: Justo Brennan M.D. on 04/22/2016 at 17:42 Date of Service: 04/24/16 0600 PROCEDURE: X-RAY CHEST, TWO VIEWS ([id number]) INDICATIONS: shortness of breath TECHNIQUE: 2 views of the chest were acquired. COMPARISON: [facility], CR, XR CHEST 2VW, 01/07/2016, 12:13. [facility], CR, XR CHEST 1VW (PORTABLE), 04/16/2016, 8:24. [facility], CR, XR CHEST 2VW, 04/22/2016, 17:07. IMPRESSION: Right basilar infiltrate suspicious for pneumonia. Dictated by: Kemi Rosas M.D. on 04/24/2016 at 11:10 12-lead ECG Sinus tachycardia with a rate of 103, normal axis, normal interval durations, nonspecific T-wave abnormalities in the lateral leads, but no other ST-T wave changes to suggest ischemia. Cardiac Echo Impressions Echocardiogram 04/23/2016 There is mild concentric left ventricular hypertrophy. Left ventricular systolic function is moderate to severely reduced. Left ventricular ejection fraction is estimated to be 35%. LVEF has not changed significantly since prior study. There is moderate to severe global hypokinesis of the left ventricle. Assessment of diastolic parameters indicates a restrictive filling pattern of the left ventricle consistent with significantly elevated filling pressures. The right ventricle is normal size. Right ventricular systolic function is mild to moderately reduced. Pulmonary artery pressures cannot be estimated because of the lack of a measurable TR jet velocity. The left atrial size is normal. Borderline right atrial enlargement. There is no significant valvular heart disease. The ascending aorta is mildly enlarged. The IVC is dilated (diameter is greater than 2.1 cm) and it collapses less than 50% with a sniff. This suggests a high right atrial pressure of 15 mm Hg. Additional Diagnostics Cardiac catheterization 04/26/16 CONCLUSION: 1. Diffuse severe disease of the left anterior descending and right posterior descending and posterolateral branches. 2. Chronic occlusion of the circumflex artery. 3. Dilated left ventricle with left ventricular ejection fraction 25%. 4. Severe pulmonary hypertension. 5. Cardiac index is 2.3 L/minute/m2 by thermodilution technique and 1.9 L/minute/m2 by PATRICK method. PLAN: Medical management. His coronary anatomy is not suitable for percutaneous intervention or coronary bypass surgery. Assessment & Plan 50-year-old obese male with history of heart failure with reduced EF, diabetes with poor control, hypertension with poor control, who presented to the ER with increased lower extremity swelling, weight gain, orthopnea. Admitted for evaluation and treatment of anasarca suspected to be secondary to acute exacerbation CHF. - Hospital day 4 1. Heart failure with reduced EF (LVEF 25-30%) with acute exacerbation, present on admission. Improving * Currently on beta jerod, ACEi, mineralocorticoid receptor antagonist and statin * Cardiology following; appreciate time and recommendations * Lasix 40mg IV Q6H with Metolazone 5mg daily * Digoxin 0.25mg daily * Carvedilol 12.5 mg twice a day * Dobutamine drip * CHF education referral and follow-up in CHF clinic * Heart healthy/constant carb diet with 2 L fluid restriction * Daily standing weights with I/O * Continue Telemetry 2. Hypertension, essential, chronic. Stable * Initial readings: Likely secondary to stress of hospitalization * Continue to increase carvedilol and lisinopril as tolerated * Monitor 3. Sleep apnea * Desaturation during sleep - has never had sleep study * Maybe contributing to #1,2 * Recommend out patient sleep study 4.. Bilateral lower extremity edema and pain, worse than historical on admission. Ongoing * Pain management with Tylenol. * DVT prophylaxis with heparin subcutaneous 5. Diabetes mellitus type II on insulin complicated by elevated microalbumin. Hyperglycemia on admission. * Continue home Lantus (reported at 50 units every night subcutaneous), but hold metformin and sulfonylurea * Correctional insulin, medium dose * Check A1c: 10.6; likely noncompliant * Diabetes education 6. Hyperlipidemia. * Continue high-dose statin * Most recent lipid panel was 01/07/2016: Total cholesterol 152, triglyceride 135 , HDL 37, LDL 88 7. Bilateral leg pain * US duplex negative for DVT * Pain management PRN; avoid opioids for musculoskeletal lower extremity pain 8. Tobacco dependence, chewing. * Tobacco cessation discussed. * Nicotine patch provided if needed 9. Obesity * Management of medical conditions as above * Dietary consultation placed 10. Bulla of left foot, acute, present on admission. Presumed stable - Wound care consultation 11. Right great toe, absent toenail, acute, present on admission. Stable - Wound care PRN MEDICATIONS - Acetaminophen as needed for mild pain/fever/headache - Bowel regimen as needed - DVT: Hep q8 - DIET: Heart/CC with fluid restriction - GI: None - Code: FULL CODE Dispo: Likely to be discharged after 2-3 more days of diuresis with dobutamine augmentation Pain Evaluation: Pain not Controlled GI Prophylaxis: Not indicated VTE Prophylaxis: Sub-Q Heparin (Unfractionated) VTE Mechanical Devices: Intermittant Pneumatic CD Resuscitation Status: CPR: Attempt Resuscitation Time spent 35 minutes Woody Suárez MD Apr 27, 2016 16:27
[2016-04-27] MEDS: Senna-Docusate 8.6-50 mg Tablet PO PRN (16:57)
--- NOTE | 2016-04-27 17:53 | NUR ---
Shift Notation Pt denies chest pain. Pulses audible bilaterally with doppler. Continues on Dobutamine drip at 5mcg/kg/min. Tele SR 80-90s with occasional paired PVC. Rt groin site, soft non-tender, no evidence of hematoma. Resp: Pt on RA while awake, placed NC at 2L while asleep, pt will desat to mid 80s while napping. Patient denies any SOB or respiratory distress. Decreased lung sounds on right side.
[2016-04-27] MEDS: Insulin GLARgine 100 Unit/mL Syringe SUBQ SCH (21:51)
[2016-04-27] MEDS: Polyethylene Glycol (PEG) 17 Gm Powder PO PRN (22:20)
[2016-04-28] VITALS (10 sets, daily range): BP systolic 115–171; BP diastolic 68–91; PULSE 75–93; RESP 16–20; O2SAT 94–97
[2016-04-28] MEDS: Sodium Chloride LOK Flush 10 mL Syringe IVFLUSH SCH ×3 (00:30→18:34)
[2016-04-28] MEDS: HYDROcodone-APAP 5-325 mg Tablet PO PRN ×4 (05:56→20:09)
[2016-04-28] MEDS: DOBUTamine 500 mg/250 mL D5W IV SCH ×2 (06:00→18:29)
[2016-04-28 06:01] LABS: Magnesium 1.6 mg/dL (1.6-2.6)
--- NOTE | 2016-04-28 06:33 | NUR ---
Pain/Voiding Pt c/o pain in legs 11/23 x2 this shift administered 2 tabs PRN Vicodin x2 and effective. Pt able to rest for most of night. Pt voiding 3,000 this shift and is independent with urinal. VSS and Tele SR
[2016-04-28] MEDS: Insulin LISPRO 300 Unit/3 mL Inj SUBQ SCH ×2 (08:00→12:21)
[2016-04-28] MEDS: Heparin 5,000 Unit/mL Inj SUBQ SCH ×2 (08:17→20:10)
[2016-04-28] MEDS: Lisinopril 40 Tablet PO SCH ×2 (08:17→20:12)
--- NOTE | 2016-04-28 09:04 | PCM.PNCARD ---
Subjective Date of service Apr 28, 2016 Chief Complaint # HFrEF: # Severe ICM (EF 25%) # Severe Diffuse 3 Vz CAD # HTN # T2DM # HLD # Tabacco Abuse # Morbid Obesity # Diabetic Ulcer to R Great Toe History of Present Illness Mr. Jos Ragsdale is a pleasant 50 y/o M that is clinically followed in the [facility] Cardiology clinic by Dr. Falcon. The patients cardiac history consists of: HFrEF, ICM, Severe diffuse 3 Vz CAD, Severe Pulm HTN, HTN, HLD, T2DM and poor medical compliance secondary to lack of insurance. During the patients most recent Clinic Visit with Dr. Falcon 02/2016 he was initiated on appropriate medical management. The patient had an echocardiogram completed in the fall of 2015 that showed an LVEF of around 35%. Apparently, he did not have any insurance and he wanted to defer any more expensive procedures until he had insurance which he just started with on 04/16/2016. He apparently has been compliant with his medications as of lately and his sodium restriction. He was recently seen in the ER and his Lasix was increased but he continued to gain weight (8 lbs in 24 hours). The patient denies any orthopnea / PND. He denies anginal symptoms of any type, no palpitations, no dizziness, lightheadedness, pre-syncope or rolf syncopal spells. The patient probably does have sleep apnea with a recent hx of desaturations during sleeping hours. He was admitted with significant hypertension. His BP has subsequently decreased and has normalized. His major complaint is lower extremity discomfort and constipation with decreased appetite. His chest CXR was unremarkable in the ER and EKG has not shown any acute changes suggestive of acute coronary syndrome. His troponins are negative up to date. His pBNP is ~ 1400. . Selective coronary angiogram: a. Left main coronary artery has distal 20% stenosis. b. The left anterior descending artery is transapical and has diffuse disease of 60%-90% stenosis throughout with moderate calcification. The first, second and third diagonal branches are small and have diffuse disease. c. The circumflex artery is occluded in the proximal portion. d. The dominant right coronary artery has 60% stenosis in the mid portion with diffuse minor irregularities. The posterior descending branch and the posterolateral branches have diffuse disease. e. Left ventricular angiogram demonstrates dilated left ventricle with visually estimated ejection fraction 25% with severe global hypokinesis. f. There is no gradient across the aortic valve on catheter withdrawal. 2 D Echo: 23 April 2016 There is mild concentric left ventricular hypertrophy. Left ventricular systolic function is moderate to severely reduced. Left ventricular ejection fraction is estimated to be 35%. LVEF has not changed significantly since prior study. There is moderate to severe global hypokinesis of the left ventricle. Assessment of diastolic parameters indicates a restrictive filling pattern of the left ventricle consistent with significantly elevated filling pressures. The right ventricle is normal size. Right ventricular systolic function is mild to moderately reduced. Pulmonary artery pressures cannot be estimated because of the lack of a measurable TR jet velocity. The left atrial size is normal. Borderline right atrial enlargement. There is no significant valvular heart disease. The ascending aorta is mildly enlarged. The IVC is dilated (diameter is greater than 2.1 cm) and it collapses less than 50% with a sniff. This suggests a high right atrial pressure of 15 mm Hg Subjective: BP: 115-141 / 78-91mmHg, HR: 75-91bpm Weight: 127.4kg's dwon 3.8Kg's / 24hrs, down 10.8Kg's since 04/25/2016. Telem: NSR (1-8bt run NSVT this morning at 9am). Today, patient reports that he is doing well without any type of anginal symptom , no shortness of breath, no dyspnea, no PND/orthopnea, no palpitations, he has noted that the swelling in his legs is continuing to decrease and the pain in his thighs is slowly improving. He had one 8 beat run of asymptomatic monomorphic nonsustained VT on his telemetry this morning at 9 AM. The patient is responding very well to diuresis with the addition of renal dose dobutamine. His weight is down 3.8kg / 24 hr and down 9.6 kg since admission. Medications: 1. Lasix 40mg IV q6h 2. Metolazone 5mg po qday 3. Dobutamine 5mcg/Kg/min 4. Lisinopril 40mg po BID 5. Carvedilol 12.5mg po BID 6. Spironolactone 25mg po qday 7. Digoxin 0.25mg po qday 8. Amlodipine 5mg po qday 9. Aspirin 81mg po qday 9. Atorvastatin 10mg po qday 10. Add Plavix 75 mg one by mouth daily (*added 04/28/2016) 11. Nicdoderrm Patches 12. Lantus Insulin 13. Heparin Labs: 04/28/2016 1. CMP: Na+ 140, K+ 4.0, BUN: 13, Creat: 0.78 Results from coronary angiography (04/26/2016): 1. Diffuse severe disease of the left anterior descending and right posterior descending and posterolateral branches. 2. Chronic occlusion of the circumflex artery. 3. Dilated left ventricle with left ventricular ejection fraction 25%. 4. Severe pulmonary hypertension. 5. Cardiac index is 2.3 L/minute/m2 by thermodilution technique and 1.9 L/ minute/m2 by PATRICK method. Medical management. His coronary anatomy is not suitable for percutaneous intervention or coronary bypass surgery. 11-point ROS: 11-point Review of Systems negative (Comprehensive review of systems conducted and was negative except for the pertinent positives listed in history of present illness above) 11-point ROS: 11-point Review of Systems negative (other than what is noted in the HPI) Exam Vital Signs Vital Sign - Last Date Time Temp Pulse Resp B/P Pulse Ox O2 Delivery O2 Flow Rate FiO2 04/28/16 08:09 36.8 91 16 145/81 95 Room Air 04/28/16 03:29 2.00 Intake and Output 04/27/16 04/27/16 04/28/16 Cumulative From/Thru 14:59 22:59 06:59 04/22/16 16:45 - 04/28/16 06:01 Intake Total 771 ml 200 ml 7282 ml Output Total 2350 ml 3000 ml 21053 ml Balance -1579 ml -2800 ml -56883 ml Intake Oral 520 ml 200 ml 6527 ml IV Total 251 ml 755 ml Output Urine Total 2350 ml 3000 ml 43791 ml Emesis 950 ml # Voids 3 4 # Bowel Movements 0 Additional Information: General: AAO, Cooperative, No Acute Distress, Head: NC / AT. Eyes: Anicteric sclerae. Mouth: Mucous Membranes Moist/Solis, poor dentition Neck: Neck supple. JVP difficult to assess. Chest & Lungs: Clear to auscultation bilaterally. Cardiovascular: Normal S1, Normal S2, No Murmurs/Rubs/Gallops appreciated, radial and posterior tibial pulses are 2+ bilaterally. Abdomen: Obese,NT, Non-distended, No masses, + NABS 4 quads, Soft, no pitting edema noted. Right groin: There is no bruit, no hematoma or ecchymosis. Extremities: Mild to moderate edema in the bilateral legs from the feet to the hips, There is significant hyperpigmentation with scaling on the bilateral lower legs consistent with stasis dermatitis Neurological: Alert, Oriented X3, Grossly Neurologically Intact, Normal Speech Psych: Normal mood and affect Lab and Diagnostics Result Diagram: 04/27/16 0412 04/28/16 0516 Assessment & Plan Assessment # Acute on chronic systolic CHF (congestive heart failure) The patient appears to be responding very well to the renal dose dobutamine, the increase in his Lasix to 40 mg IV every 6 hours and the addition of Zaroxolyn. His weight is down 8.8 kg over the past 48 hours. He has CMP today does not show any significant change in his renal function that would indicate intravascular depletion. His potassium is 4.2 and trending down slowly, we will need to continue to monitor his potassium closely. Recommendations : 1. Continue dobutamine 5 mcg/kg/m 2. Continue Lasix 40 mg IV every 6 hours 3. Continue metolazone 5 mg by mouth daily 4. Continue oral digoxin 0.25 mg once a day. 5. Continue carvedilol to 12.5 mg twice a day. 6. Continue spironolactone 25 mg one by mouth daily 7. Continue lisinopril 40 mg by mouth twice a day 7. Continue amlodipine 5 mg by mouth daily 9. Continue aspirin 81 mg by mouth daily 10. We will need to continue to watch BUN/creatinine and potassium with continued aggressive diuresis 11. Prior to DC, recommend switching from oral Furosemide to oral Torsemide as an alternative form of an oral loop diuretic since it does have better bioabsorption. # Severe diffuse three-vessel coronary artery disease 1. Diffuse severe three-vessel coronary artery disease of the left anterior descending and right posterior descending and posterolateral branches. 2. Chronic occlusion of the left circumflex coronary artery. 3. Dilated left ventricle with left ventricular ejection fraction 25%. 4. Severe pulmonary hypertension. 5. Cardiac index is 2.3 L/minute/m2 by thermodilution technique and 1.9 L/ minute/m2 by PATRICK method. Recommendation: 1. Medical management. His coronary anatomy is not suitable for percutaneous intervention or coronary bypass surgery. We will need to maximize his medical therapy #Severe dilated ischemic cardiomyopathy Patient has a severe ischemic cardiomyopathy (EF 25%) Recommendation: 1. As above will maximize heart failure medications 2. Repeat 2-D echocardiogram in 3 months to evaluate LVEF. If patient continues to have an EF of less than 40% we will consider referral to Dr. Yeung for ICD implantation. # Severe pulmonary hypertension Recommendation: 1. As above, maximize medical management, particularly the after load reduction medications. #Monomorphic NSVT The patient had an asymptomatic run of monomorphic nonsustained ventricular tachycardia this morning at 9 AM. His potassium is 4.0, his magnesium is pending. Recommendation: 1. I have discussed the patient's big run of asymptomatic nonsustained monomorphic VT with Dr. Gallo. I will check the patient's electrolytes and continue to optimize the patient's heart rate medications as noted above. 2. We will continue to monitor the patient's telemetry closely for any additional arrhythmia. 3. We will repeat a 2-D echocardiogram in 90 days, if the patient's EF remains less than 40% we may refer patient to Dr. Felix for consideration of an ICD. # HTN . Recommendations: 1. BP goal is <130/80mmHg # Hyperlipidemia Recommendations: 1. Continue Atorvastatin 10mg/day # T2DM (diabetes mellitus) Recommendations: 1. Treatment per primary care team # Obesity Recommendations 1. Treatment / Primary care team # Diabetic Foot Ulcer R Great Toe Recommendations: 1. Treatment plan / Primary care team Problems: (1) Acute on chronic systolic CHF (congestive heart failure) Status: Acute ICD Code: I50.23 (2) HTN (hypertension) Qualifiers: Hypertension type: essential hypertension Hypertension goal: less than 130 /80 Qualified Code: I10 - Essential (primary) hypertension Status: Chronic ICD Code: I10 (3) Hyperlipidemia Qualifiers: Hyperlipidemia type: Mixed hyperlipidemia Qualified Code: E78.2 - Mixed hyperlipidemia Status: Chronic ICD Code: E78.5 (4) DM (diabetes mellitus) Qualifiers: Diabetes mellitus type: type 2 Status: Acute ICD Code: E11.9 (5) Obesity Status: Acute ICD Code: E66.9 Cardiology Plan: Diuresis Pain Evaluation: Pain not Controlled GI Prophylaxis: Not indicated VTE Prophylaxis: Sub-Q Heparin (Unfractionated) VTE Mechanical Devices: Intermittant Pneumatic CD Resuscitation Status: CPR: Attempt Resuscitation Teja Carr PA-C Apr 28, 2016 09:04
--- NOTE | 2016-04-28 09:52 | PROG NOTE ---
[address] [address] PROGRESS NOTE PATIENT: GERRY WOLFE : 1965 MR#: [id number] ADMIT: 04/22/2016 JOB ID: [id number] DATE: 04/28/2016 SUBJECTIVE: The patient reports feeling well today. He has lost more than 30 pounds since admission. He denies orthopnea or PND. His leg swelling has come down further. His nurse found him chewing tobacco in his room and swallowed. OBJECTIVE: Temperature is 36.8. Blood pressure is 145/81. Pulse 91. Body weight came down to 127.4 kg (it was 131.2 yesterday). Head and face have normal configuration with dry mucosa. Neck supple. No jugular venous distention. Lungs are clear to auscultation. Heart: The first and second heart sounds normal. No murmur. Abdomen: Soft, nontender. Extremities: 3+ edema. Blood tests show sodium 140, potassium 4.0, chloride 91, bicarb 40, BUN 13, creatinine 0.78, glucose 150, magnesium 1.6. IMPRESSION: 1. Acute on chronic combined systolic and diastolic heart failure, improving. 2. Ischemic cardiomyopathy with ejection fraction 25% to 30%. 3. Severe triple-vessel coronary artery disease, not suitable for percutaneous intervention or coronary artery bypass surgery. 4. Hypertension. 5. Hypercholesterolemia. 6. Diabetes mellitus. 7. Tobacco dependence, chewing. 8. Severe obesity. 9. Obstructive sleep apnea. PLAN: The patient still has quite a lot of fluid in his body. He will continue on current management. I anticipate the patient should be ready to be discharged in the next couple of days. I will add clopidogrel 75 mg once daily for management of his coronary artery disease, and give him magnesium supplement. SAEED
[2016-04-28] MEDS: Ondansetron 2 mg/mL 2 mL Inj IVPUSH PRN (13:45)
--- NOTE | 2016-04-28 18:03 | PCM.PNMED ---
Subjective Date of Service Apr 28, 2016 Subjective 50-year-old man with type II diabetes, hypertension and chronic systolic congestive heart failure presents with acutely decompensated heart failure. He reports dyspnea improved since admission. Edema also improved. Able to ambulate to bathroom with no significant dyspnea. Worsened nausea today. Exam Vital Signs Vital Sign - Last Date Time Temp Pulse Resp B/P Pulse Ox O2 Delivery O2 Flow Rate FiO2 04/28/16 16:41 37.1 88 17 171/88 95 Room Air 04/28/16 03:29 2.00 Intake and Output 04/27/16 04/27/16 04/28/16 Cumulative From/Thru 15:00 23:00 07:00 04/22/16 16:45 - 04/28/16 06:01 Intake Total 771 ml 200 ml 7282 ml Output Total 2350 ml 3000 ml 49473 ml Balance -1579 ml -2800 ml -95915 ml Intake Oral 520 ml 200 ml 6527 ml IV Total 251 ml 755 ml Output Urine Total 2350 ml 3000 ml 77794 ml Emesis 950 ml # Voids 3 4 # Bowel Movements 0 Exam General: Moderately obese middle-aged man in mild distress due to nausea HEENT: sclerae anicteric, oral mucosa moist Neck: JVD 5 cm above sternal notch Chest: clear to auscultation Cardiac: S1S2, regular, no murmur Abdomen: BS normal, non-tender Extremities: 1+ edema with stasis changes bilaterally Neuro: A&O, cranial nerves symmetric, motor strength 5/5, coordination normal IVs and Medications Medications Reviewed: Medications were reviewed in detail Lab and Diagnostics Result Diagram: 04/27/16 0412 04/28/16 0516 X-Rays, CTs and MRIs Date of Service: 04/22/16 1649 PROCEDURE: X-RAY CHEST, TWO VIEWS ([id number]) INDICATIONS: shortness of breath COMPARISON: [facility], CR, XR CHEST 1VW (PORTABLE), 04/16/2016, 8: 24 IMPRESSION: Mild right basilar atelectasis/scarring. No acute consolidatio Dictated by: Justo Brennan M.D. on 04/22/2016 at 17:42 Date of Service: 04/24/16 0600 PROCEDURE: X-RAY CHEST, TWO VIEWS ([id number]) INDICATIONS: shortness of breath TECHNIQUE: 2 views of the chest were acquired. COMPARISON: [facility], CR, XR CHEST 2VW, 01/07/2016, 12:13. [facility], CR, XR CHEST 1VW (PORTABLE), 04/16/2016, 8:24. [facility], CR, XR CHEST 2VW, 04/22/2016, 17:07. IMPRESSION: Right basilar infiltrate suspicious for pneumonia. Dictated by: Kemi Rosas M.D. on 04/24/2016 at 11:10 12-lead ECG Sinus tachycardia with a rate of 103, normal axis, normal interval durations, nonspecific T-wave abnormalities in the lateral leads, but no other ST-T wave changes to suggest ischemia. Cardiac Echo Impressions Echocardiogram 04/23/2016 There is mild concentric left ventricular hypertrophy. Left ventricular systolic function is moderate to severely reduced. Left ventricular ejection fraction is estimated to be 35%. LVEF has not changed significantly since prior study. There is moderate to severe global hypokinesis of the left ventricle. Assessment of diastolic parameters indicates a restrictive filling pattern of the left ventricle consistent with significantly elevated filling pressures. The right ventricle is normal size. Right ventricular systolic function is mild to moderately reduced. Pulmonary artery pressures cannot be estimated because of the lack of a measurable TR jet velocity. The left atrial size is normal. Borderline right atrial enlargement. There is no significant valvular heart disease. The ascending aorta is mildly enlarged. The IVC is dilated (diameter is greater than 2.1 cm) and it collapses less than 50% with a sniff. This suggests a high right atrial pressure of 15 mm Hg. Additional Diagnostics Cardiac catheterization 04/26/16 CONCLUSION: 1. Diffuse severe disease of the left anterior descending and right posterior descending and posterolateral branches. 2. Chronic occlusion of the circumflex artery. 3. Dilated left ventricle with left ventricular ejection fraction 25%. 4. Severe pulmonary hypertension. 5. Cardiac index is 2.3 L/minute/m2 by thermodilution technique and 1.9 L/minute/m2 by PATRICK method. PLAN: Medical management. His coronary anatomy is not suitable for percutaneous intervention or coronary bypass surgery. Assessment & Plan 50-year-old obese male with history of heart failure with reduced EF, diabetes with poor control, hypertension with poor control, who presented to the ER with increased lower extremity swelling, weight gain, orthopnea. Admitted for evaluation and treatment of anasarca suspected to be secondary to acute exacerbation CHF. 1. Heart failure with reduced EF (LVEF 25-30%) with acute exacerbation, present on admission. Improving * Currently on beta jerod, ACEi, mineralocorticoid receptor antagonist and statin * Plavix added * Cardiology following; appreciate time and recommendations * Lasix 40mg IV Q6H with Metolazone 5mg daily * Digoxin 0.25mg daily * Carvedilol 12.5 mg twice a day * Dobutamine drip * CHF education referral and follow-up in CHF clinic * Heart healthy/constant carb diet with 2 L fluid restriction * Daily standing weights with I/O * Continue Telemetry 2. Nausea, acute. Suspect medication effect. - When necessary antiemetic - Reassess when dobutamine infusion is complete and return to usual medications 3. Type II diabetes mellitus, uncontrolled. A1c 10.6. 50 units glargine is achieving reasonable fasting a.m. control, but BGs exceed 200 with eating later in the day. - Changed to bedtime NPH with a.m. 70/30 - Diabetes education Chronic, stable and/or resolved problems: 2. Hypertension, essential, chronic. Stable * Initial readings: Likely secondary to stress of hospitalization * Continue to increase carvedilol and lisinopril as tolerated * Monitor 3. Sleep apnea * Desaturation during sleep - has never had sleep study * Recommend out patient sleep study 4.. Bilateral lower extremity edema and pain, worse than historical on admission. Ongoing * Pain management with Tylenol. * DVT prophylaxis with heparin subcutaneous 6. Hyperlipidemia. * Continue high-dose statin * Most recent lipid panel was 01/07/2016: Total cholesterol 152, triglyceride 135 , HDL 37, LDL 88 7. Bilateral leg pain * US duplex negative for DVT * Pain management PRN; avoid opioids for musculoskeletal lower extremity pain 8. Tobacco dependence, chewing. * Tobacco cessation discussed. * Nicotine patch provided if needed 9. Obesity * Management of medical conditions as above * Dietary consultation placed 10. Bulla of left foot, acute, present on admission. Presumed stable - Wound care consultation 11. Right great toe, absent toenail, acute, present on admission. Stable - Wound care GI Prophylaxis: Not indicated VTE Prophylaxis: Sub-Q Heparin (Unfractionated) VTE Mechanical Devices: Intermittant Pneumatic CD Resuscitation Status: CPR: Attempt Resuscitation Time spent 30 minutes Woody Suárez MD 13, 2017 18:03
[2016-04-28] MEDS ORDERED: Glucose 40% Oral Gel 15 Gm Tube PO PRN (18:05)
--- NOTE | 2016-04-28 20:00 | NUR ---
Nausea Patient vomited twice this shift after lunch, 600ml, this RN gave pt Zofran. Patient stated it helped with the nausea. Notified MD. MD recommended keeping up on Zofran every four hours to help with nausea while on the dobutamine. This RN also included this information in report to night nurse.
--- NOTE | 2016-04-28 20:05 | NUR ---
Tobacco Chew This RN found tobacco chew on night table next to patient. Reminded pt tobacco products were not allowed, offered nicotine patch. Patient agreed. Patient stated he didn't spit, he swallowed chew. MD notified. Chew placed in med drawer.
[2016-04-28] MEDS ORDERED: Insulin Human NPH 100 Unit/mL 3 mL Inj SUBQ SCH (21:00)
[2016-04-29] VITALS (7 sets, daily range): BP systolic 127–174; BP diastolic 72–107; PULSE 74–93; RESP 17–18; O2SAT 93–97
[2016-04-29] MEDS: Sodium Chloride LOK Flush 10 mL Syringe IVFLUSH SCH ×3 (00:28→16:25)
[2016-04-29] MEDS: HYDROcodone-APAP 5-325 mg Tablet PO PRN ×3 (00:34→09:50)
[2016-04-29] MEDS: DOBUTamine 500 mg/250 mL D5W IV SCH (02:55)
--- NOTE | 2016-04-29 06:23 | NUR ---
Dressing change Pt bilateral foot dressings changed at 0500 this am. Pt tolerated well, no c/o pain during procedure. Xeroform applied to flat blister patches and great toe nail bed. gauze and kerlex applied
[2016-04-29] MEDS ORDERED: Insulin Human NPH-Reg 70-30 100 Unit/mL 3 mL Pen SUBQ SCH (08:00)
[2016-04-29] MEDS: Heparin 5,000 Unit/mL Inj SUBQ SCH (08:02)
[2016-04-29] MEDS: Lisinopril 40 Tablet PO SCH (08:02)
[2016-04-29] MEDS: Furosemide 10 mg/mL 4 mL Inj IVPUSH SCH ×2 (08:03→16:21)
[2016-04-29] MEDS: Senna-Docusate 8.6-50 mg Tablet PO PRN (11:54)
--- NOTE | 2016-04-29 11:57 | NUR ---
Ambulation/constipation Pt tolerated ambulating around [facility] unit. Denies SOB, chest pain. Pt stated legs still hurts, stated did not get better or worse. This RN administered Flexerall per Emar, senna and prune juice for constipation per pt. Encouraged pt to ambulate around room and unit, to call for SBA while walking around unit. Patient tolerates ambulation to and from bathroom. Care continues.
--- NOTE | 2016-04-29 12:04 | NUR ---
Blood glucose Pt blood glucose 176 for 1200 check. notified.
[2016-04-29] MEDS: Polyethylene Glycol (PEG) 17 Gm Powder PO PRN (14:26)
[2016-04-29] MEDS ORDERED: DIGO250T72 PO (16:29)
[2016-04-29] MEDS ORDERED: NPH,100V10 SUBQ (16:29)
[2016-04-29] MEDS ORDERED: INS7030U SUBQ (16:29)
[2016-04-29] MEDS ORDERED: CLOP75TA28 PO (16:29)
[2016-04-29] MEDS ORDERED: SIMV40TA5 PO (16:29)
[2016-04-29] MEDS ORDERED: ASPI-973 PO (16:29)
[2016-04-29] MEDS ORDERED: CARV25TA2 PO (16:29)
--- NOTE | 2016-04-29 16:41 | PCM.DIMED ---
Discharge Instructions Date of Service Apr 29, 2016 Dates of Hospitalization Apr 22, 2016 at 20:59 Discharge Diagnosis Discharge Diagnosis Systolic congestive heart failure; ischemic cardiomyopathy; coronary artery disease; type II diabetes mellitus uncontrolled; hypertension Medication Instructions There have been many medication changes. Prescriptions have all been sent to the [facility] pharmacy. For your coronary artery disease: Atorvastatin has been discontinued and replaced with a higher dose of simvastatin. A baby aspirin and Plavix ( clopidogrel) have been added. For your congestive heart failure: Carvedilol 25 mg twice a day has been added, digoxin 0.25 mg daily has been added, Lasix (furosemide), spironolactone and lisinopril are continued. For your type II diabetes mellitus: Your hemoglobin A1c of 10.6 on your previous regimen of Lantus 50 mg at bedtime, metformin 1000 g twice a day and glipizide was clearly not adequate. You may discontinue glipizide, as this is unlikely doing anything for you at this point. You may continue metformin at the prior dose. Lantus has been replaced by a regimen of bedtime NPH insulin ( Novolin N) 25 units, and a morning dose of Novolin 70/30 of 35 units. Should monitor your blood sugars regularly in the morning and prior to dinner and at anytime that you feel badly. If possible check your blood sugar between 2 and 3 in the morning once or twice per month and report any values below 100 to your primary care doctor. You should follow up soon with your primary care provider for further adjustments of this new insulin regimen. Taking care of your diabetes is important for lowering your risk of cardiac problems. You should try to minimize your use of medications like ibuprofen. His medications increase your risk of heart attack, ulcer and kidney problems. We recommend that you discontinue ibuprofen and if needed use naproxen (Naprosyn), which may have lower cardiac risk. Diet Diabetic (low-sodium) Activity No restrictions Call your provider Shortness of breath Patient Instructions Yourself daily and record these values. If you experience a weight gain greater than 5 pounds, then you should contact the CHF clinic. We should observe a low sodium diet strictly. Follow-up plan You should call the cardiology clinic on Sunday morning to arrange a follow-up appointment within 1 week. Follow-up Provider: Freddie Lai MD Follow-up with PCP in: 1 week Provider: Curtis Yun DO Follow-up in: 2 weeks Woody Suárez MD Apr 29, 2016 16:41
[2016-04-29] MEDS ORDERED: SYRI-233 MC (16:54)
--- NOTE | 2016-04-29 18:13 | NUR ---
DISCHARGE Patient discharged at 1810, left with girlfriend who will drive him home. Patient denies nausea, shortness of breath, and pain. Medications reviewed and new Rx faxed to patient's pharmacy by maria l DE LEON verbalized understanding. Teaching done on insulin administration, new medications, heart failure, diabetes. and low sodium diet. Educational booklets on heart failure, diabetes, and post cath given to patient. Patient instructed to follow up with cardiac doctor in one week and PCP in two weeks, phone numbers provided.
--- NOTE | 2016-04-29 18:36 | PCM.DC.MED ---
Discharge Summary Date of Service Apr 29, 2016 Dates of Hospitalization Date of Hospital Admission Apr 22, 2016 at 20:59 Date of Discharge: Apr 29, 2016 Providers: Admitting Physician: Ashlie Castillo MD Primary Care Physician: Curtis Yun DO Attending Physician: Ashlie Castillo MD Diagnosis at Time of Discharge Diagnosis at Time of Discharge Systolic congestive heart failure; ischemic cardiomyopathy; coronary artery disease; type II diabetes mellitus uncontrolled; hypertension Consultations Cardiology: IMPRESSION: 1. Acute on chronic combined systolic and diastolic heart failure, improving. 2. Ischemic cardiomyopathy with ejection fraction 25% to 30%. 3. Severe triple-vessel coronary artery disease, not suitable for percutaneous intervention or coronary artery bypass surgery. 4. Hypertension. 5. Hypercholesterolemia. 6. Diabetes mellitus. 7. Tobacco dependence, chewing. 8. Severe obesity. 9. Obstructive sleep apnea. PLAN: The patient still has quite a lot of fluid in his body. He will continue on current management. I anticipate the patient should be ready to be discharged in the next couple of days. I will add clopidogrel 75 mg once daily for management of his coronary artery disease, and give him magnesium supplement. Freddie Lai MD 04/28/16 0907. Procedures XRay, CTs & MRIs Date of Service: 04/22/16 1649 PROCEDURE: X-RAY CHEST, TWO VIEWS ([id number]) INDICATIONS: shortness of breath COMPARISON: [facility], CR, XR CHEST 1VW (PORTABLE), 04/16/2016, 8: 24 IMPRESSION: Mild right basilar atelectasis/scarring. No acute consolidatio Dictated by: Justo Brennan M.D. on 04/22/2016 at 17:42 Date of Service: 04/24/16 0600 PROCEDURE: X-RAY CHEST, TWO VIEWS ([id number]) INDICATIONS: shortness of breath TECHNIQUE: 2 views of the chest were acquired. COMPARISON: [facility], CR, XR CHEST 2VW, 01/07/2016, 12:13. [facility], CR, XR CHEST 1VW (PORTABLE), 04/16/2016, 8:24. [facility], CR, XR CHEST 2VW, 04/22/2016, 17:07. IMPRESSION: Right basilar infiltrate suspicious for pneumonia. Dictated by: Kemi Rosas M.D. on 04/24/2016 at 11:10 ECG 12 Lead Sinus tachycardia with a rate of 103, normal axis, normal interval durations, nonspecific T-wave abnormalities in the lateral leads, but no other ST-T wave changes to suggest ischemia. Cardiac Echo Impression Echocardiogram 04/23/2016 There is mild concentric left ventricular hypertrophy. Left ventricular systolic function is moderate to severely reduced. Left ventricular ejection fraction is estimated to be 35%. LVEF has not changed significantly since prior study. There is moderate to severe global hypokinesis of the left ventricle. Assessment of diastolic parameters indicates a restrictive filling pattern of the left ventricle consistent with significantly elevated filling pressures. The right ventricle is normal size. Right ventricular systolic function is mild to moderately reduced. Pulmonary artery pressures cannot be estimated because of the lack of a measurable TR jet velocity. The left atrial size is normal. Borderline right atrial enlargement. There is no significant valvular heart disease. The ascending aorta is mildly enlarged. The IVC is dilated (diameter is greater than 2.1 cm) and it collapses less than 50% with a sniff. This suggests a high right atrial pressure of 15 mm Hg. . Other Diagnostics Cardiac catheterization 04/26/16 CONCLUSION: 1. Diffuse severe disease of the left anterior descending and right posterior descending and posterolateral branches. 2. Chronic occlusion of the circumflex artery. 3. Dilated left ventricle with left ventricular ejection fraction 25%. 4. Severe pulmonary hypertension. 5. Cardiac index is 2.3 L/minute/m2 by thermodilution technique and 1.9 L/minute/m2 by PATRICK method. PLAN: Medical management. His coronary anatomy is not suitable for percutaneous intervention or coronary bypass surgery. Brief History History of Present Illness (per admission note): Mr. Jos Ragsdale is a pleasant 50 y/o M that is clinically followed in the [facility] Cardiology clinic by Dr. Falcon. The patients cardiac history consists of: HFrEF, ICM, Severe diffuse 3 Vz CAD, Severe Pulm HTN, HTN, HLD, T2DM and poor medical compliance secondary to lack of insurance. During the patients most recent Clinic Visit with Dr. Falcon 02/2016 he was initiated on appropriate medical management. The patient had an echocardiogram completed in the fall of 2015 that showed an LVEF of around 35%. Apparently, he did not have any insurance and he wanted to defer any more expensive procedures until he had insurance which he just started with on 04/16/2016. He apparently has been compliant with his medications as of lately and his sodium restriction. He was recently seen in the ER and his Lasix was increased but he continued to gain weight (8 lbs in 24 hours). The patient denies any orthopnea / PND. He denies anginal symptoms of any type, no palpitations, no dizziness, lightheadedness, pre-syncope or rolf syncopal spells. The patient probably does have sleep apnea with a recent hx of desaturations during sleeping hours. He was admitted with significant hypertension. His BP has subsequently decreased and has normalized. His major complaint is lower extremity discomfort and constipation with decreased appetite. His chest CXR was unremarkable in the ER and EKG has not shown any acute changes suggestive of acute coronary syndrome. His troponins are negative up to date. His pBNP is ~ 1400. . Hospital Course 50-year-old obese male with history of heart failure with reduced EF, diabetes with poor control, hypertension with poor control, who presented to the ER with increased lower extremity swelling, weight gain, orthopnea. Admitted for evaluation and treatment of anasarca suspected to be secondary to acute exacerbation CHF. 1. Heart failure with reduced EF (LVEF 25-30%) with acute exacerbation, present on admission. Improving * Currently on beta jerod, ACEi, mineralocorticoid receptor antagonist and statin, switch to high-dose statin at time of discharge * Plavix 75 mg daily added * Cardiology following; appreciate time and recommendations * Lasix 40mg IV Q6H with Metolazone 5mg daily * Digoxin 0.25mg daily * Carvedilol 12.5 mg twice a day * Dobutamine drip * CHF education referral and follow-up in CHF clinic * Heart healthy/constant carb diet with 2 L fluid restriction * He was advised on weighing in reporting his weight at home, to contact CHF clinic if greater than 5 pounds weight gain 2. Type II diabetes mellitus, uncontrolled. A1c 10.6. He was continued on his home dose of 50 units glargine which achieved reasonable fasting a.m. control (100-120), but BGs exceed 200 later in the day. He will need multiple daily injections of insulin with increase in daytime insulin dosing. - Changed to NPH 25 units at bedtime, with a.m. 70/30 at 35 units. This is a small increase from his prior dose of (Lantus) 50 units per day, and will likely need to be increased. Bedtime NPH dose may be increased until fasting a.m. sugars are 80-1:30. Morning dose of 70/30 may be increased until pre- dinner and pre-bedtime control is achieved without daytime hypoglycemia. - He may be a good candidate for Jardiance (empagloflozin) due to cardiorenal benefits, but this would require prior authorization from his PCP office. - Okay to discontinue glipizide, which is unlikely helpful; continue metformin given that his renal function is good, despite CHF. - Diabetes education Chronic, stable and/or resolved problems: 2. Hypertension, essential, chronic. Stable * He was continued on his prior lisinopril 20 mg twice a day * Carvedilol was initiated and titrated up to 25 mg twice a day with good blood pressure control 3. Sleep apnea * Desaturation during sleep - has never had sleep study * Recommend out patient sleep study 4.. Bilateral lower extremity edema and pain, worse than historical on admission. Ongoing * Pain management with Tylenol; patient was counseled to reduce ibuprofen use, and replaced with naproxen at the lowest effective dose * Pain improved with diuresis 6. Hyperlipidemia. * Continue high-dose statin * Most recent lipid panel was 01/07/2016: Total cholesterol 152, triglyceride 135 , HDL 37, LDL 88 7. Bilateral leg pain * US duplex negative for DVT 8. Tobacco dependence, chewing. * Tobacco cessation discussed by Myriam * Nicotine patch provided if needed 9. Obesity * Dietary consultation placed 10. Bulla of left foot, acute, present on admission. Presumed stable - Wound care consultation 11. Right great toe, absent toenail, acute, present on admission. Stable - Wound care Exam Vital Signs (Last) Date Time Temp Pulse Resp B/P Pulse Ox O2 Delivery O2 Flow Rate FiO2 04/29/16 16:26 36.9 74 18 129/77 94 Room Air 04/29/16 07:49 2.00 Exam General: Moderately obese middle-aged man in mild distress due to nausea HEENT: sclerae anicteric, oral mucosa moist Neck: JVD 4-5 cm above sternal notch Chest: clear to auscultation Cardiac: S1S2, regular, no murmur Abdomen: BS normal, non-tender Extremities: 1+ edema with stasis changes bilaterally; muscle spasm left thigh with no signs of ecchymosis induration or swelling Neuro: A&O, cranial nerves symmetric, motor strength 5/5, coordination normal Test 04/22/16 18:07 04/23/16 00:00 04/23/16 05:43 04/24/16 05:45 D-Dimer < 0.5mg/L (<0.50) Hemoglobin A1c 10.6% (4.8-5.6) Troponin T < 0.010ug/L (0.0-0.011) Pro-B-Type Natriuretic Peptide 1494pg/mL (0-121) Urine Color Yellow (YELLOW) Urine Appearance Clear (CLEAR,HAZY) Urine pH 6.0 (5.0-8.0) Urine Specific [place] 1.015 (1.003-1.035) Urine Protein 30mg/dL (NEG,TRACE) Urine Glucose (UA) Negativemg/dL (NEGATIVE) Urine Ketones Negativemg/dL (NEGATIVE) Urine Occult Blood Trace (NEGATIVE) Urine Nitrite Negative (NEGATIVE) Urine Bilirubin Negative (NEGATIVE) Urine Urobilinogen 1.0mg/dL (NORMAL) Urine Leukocyte Esterase Negative (NEGATIVE) Urine RBC 0-2/hpf (0-2) Urine WBC 0-5/hpf (0-5) Urine Epithelial Cells Occasional/hpf (NONE-MOD) Urine Crystals None seen (NONE SEEN) Urine Bacteria None/hpf (NONE-FEW) Urine Hyaline Casts None/lpf (NONE) Urine Granular Casts None seen (NONE SEEN) Urine Waxy Casts None seen (NONE SEEN) Urine Red Blood Cell Casts None seen (NONE SEEN) Urine White Blood Cell Casts None seen (NONE SEEN) Urine Mucus None seen (None Seen) Urine Trichomonas None seen (NONE SEEN) Urine Yeast None (NONE SEEN) Urine Culture Reflexed Not indicated Total Bilirubin 0.7mg/dL (0.0-1.2) Aspartate Amino Transf (AST/SGOT) 21U/L (0-50) Alanine Aminotransferase (ALT/SGPT) 12U/L (0-44) Alkaline Phosphatase 144U/L (25-150) Total Protein 6.0g/dL (6.4-8.4) Albumin 3.1g/dL (3.4-5.0) Phosphorus Level 5.7mg/dL (2.5-4.9) Digoxin Level 0.3nG/mL (0.9-2.0) Test 04/25/16 05:20 04/27/16 04:12 04/28/16 05:16 04/29/16 05:00 Neutrophils (%) (Auto) 80.3% (40-74) Lymphocytes (%) (Auto) 10.0% (14-46) Monocytes (%) (Auto) 8.6% (4-12) Eosinophils (%) (Auto) 0.9% (0-5) Basophils (%) (Auto) 0.1% (0-3) White Blood Count 5.2th/mm3 (3.8-10.1) Red Blood Count 4.97mil/mm3 (4.40-5.80) Hemoglobin 14.3g/dL (13.8-17.2) Hematocrit 45.5% (41.0-50.0) Mean Corpuscular Volume 91.5fL (81-100) Mean Corpuscular Hemoglobin 28.8pg (27.0-35.0) Mean Corpuscular Hemoglobin Concent 31.4% (32.0-37.0) Red Cell Distribution Width 14.7% (12.3-15.4) Platelet Count 202bil/L (150-400) Magnesium Level 1.6mg/dL (1.6-2.6) Sodium Level 139mEq/L (134-144) Potassium Level 4.0mEq/L (3.5-5.2) Chloride Level 91mEq/L (97-108) Carbon Dioxide Level 39mmol/L (18-29) Blood Urea Nitrogen 9mg/dL (6-24) Creatinine 0.96mg/dL (0.76-1.27) Estimat Glomerular Filtration Rate 88mL/min (>59) Glucose Level 140mg/dL (60-99) Calcium Level 10.1mg/dL (8.5-10.1) Discharge Medications Discharge Medications Aspirin (Aspirin) 81 Mg Tablet 81 MG PO DAILY Prescribed by: JAMES KO MD Carvedilol (Carvedilol) 25 Mg Tablet 25 MG PO BID Prescribed by: JAMES KO MD Clopidogrel (Clopidogrel) 75 Mg Tablet 75 MG PO DAILY Prescribed by: JAMES KO MD Digoxin (Digoxin) 250 Mcg Tablet 0.25 MG PO DAILY@12 Prescribed by: JAMES KO MD Furosemide (Lasix) 40 Mg Tablet 40 MG PO BID Prescribed by: ROBSON QUINTEROS DO Insul NPH Hu Rec/Ins Rg Hu Rec (Novolin 70/30 U100 Insulin Vial) 100 U/1 Ml U 35 U SUBQ DAILYWM Prescribed by: JAMES KO MD Lisinopril (Lisinopril) 40 Mg Tablet 40 MG PO BID (Reported) Metformin HCl (Metformin HCl ER) 1,000 Mg [id number] 1,000 MG PO BID (Reported) NPH, Human Insulin Isophane (Novolin-N U100 Insulin Vial) 100 Unit/1 Ml Vial 25 UNIT SUBQ HS Prescribed by: JAMES KO MD Simvastatin (Simvastatin) 40 Mg Tablet 40 MG PO HS Prescribed by: JAMES KO MD Spironolactone (Spironolactone) 25 Mg Tablet 25 MG PO DAILY (Reported) Durable Medical Equipment Syring W-Ndl,Disp,Insul,0.3ML (Insulin Syringe) 1 Each Disp.syrin 1 EACH MC BID (DME) Prescribed by: JAMES KO MD Additional med instructions There have been many medication changes. Prescriptions have all been sent to the [facility] pharmacy. For your coronary artery disease: Atorvastatin has been discontinued and replaced with a higher dose of simvastatin. A baby aspirin and Plavix ( clopidogrel) have been added. For your congestive heart failure: Carvedilol 25 mg twice a day has been added, digoxin 0.25 mg daily has been added, Lasix (furosemide), spironolactone and lisinopril are continued. For your type II diabetes mellitus: Your hemoglobin A1c of 10.6 on your previous regimen of Lantus 50 mg at bedtime, metformin 1000 g twice a day and glipizide was clearly not adequate. You may discontinue glipizide, as this is unlikely doing anything for you at this point. You may continue metformin at the prior dose. Lantus has been replaced by a regimen of bedtime NPH insulin ( Novolin N) 25 units, and a morning dose of Novolin 70/30 of 35 units. Should monitor your blood sugars regularly in the morning and prior to dinner and at anytime that you feel badly. If possible check your blood sugar between 2 and 3 in the morning once or twice per month and report any values below 100 to your primary care doctor. You should follow up soon with your primary care provider for further adjustments of this new insulin regimen. Taking care of your diabetes is important for lowering your risk of cardiac problems. You should try to minimize your use of medications like ibuprofen. His medications increase your risk of heart attack, ulcer and kidney problems. We recommend that you discontinue ibuprofen and if needed use naproxen (Naprosyn), which may have lower cardiac risk. Followup Plan Follow-up plan You should call the cardiology clinic on Sunday to arrange a follow-up appointment within 1 week. Discharge Diet: Diabetic (low-sodium) Discharge Activity: No restrictions Patient Instructions Yourself daily and record these values. If you experience a weight gain greater than 5 pounds, then you should contact the CHF clinic. We should observe a low sodium diet strictly. Follow-up Provider: Freddie Lai MD Follow-up with PCP in: 1 week Provider: Curtis Yun DO Follow-up in: 2 weeks Time spent 35 minutes copies to: Freddie Lai MD; Curtis Yun Jeffrey W MD Apr 29, 2016 16:42
--- NOTE | 2016-05-01 17:49 | NUR ---
CHF/ Diabetic Discharge follow up phone call: CHF: Denied chest pain, shortness of breath, or worsening edema to his lower legs or abdomen. He is weighing himself daily and stated that his weights are trending downward. He was 270 lbs at discharge and is now 267 lbs at home. Notified patient that Dr. Serrano was faxed requesting CHF Clinic orders and that we will contact him if we receive the signed orders. Agreeable to plan. Diabetes: He is checking his blood sugars daily. His latest blood sugar was 195. Stated understanding to contact his primary doctor if his blood sugars are greater than 250 for more than 2 days. He has all his needed medications. He has an appt with his primary doctor Dr. Romeo this Sunday05/05/16. He has contacted Cardiology and they will call him back with an appointment time. No further questions.
[2016-06-12] MEDS ORDERED: CARV25TA2 PO (16:30)
[2016-06-12] MEDS ORDERED: INS7030U SUBQ ×2 (16:30)
== END 2016-04-29 18:10 | disposition home or self-care (01) | DRG 191 ==
LOC: SED 16:32 → MPC 20:59 → OBSVTOIN 20:59 → UNDOADMOB 20:59 → INTOOBSV 20:59 → MPC 21:36 → PCC 04-26 15:15
PROVIDERS: ADMIT Specialist; ATTEND Specialist
PROC: 3E0234Z Introduction of Serum, Toxoid and Vaccine into Muscle, Percutaneous Approach (ICD-10-PCS; 2016-04-23)
PROC: 4A023N7 Measurement of Cardiac Sampling and Pressure, Left Heart, Percutaneous Approach (ICD-10-PCS; principal; 2016-04-26)
PROC: B2111ZZ Fluoroscopy of Multiple Coronary Arteries using Low Osmolar Contrast (ICD-10-PCS; 2016-04-26)
DX: I50.43 Acute on chronic combined systolic (congestive) and diastolic (congestive) heart failure (principal); E11.621 Type 2 diabetes mellitus with foot ulcer; I25.82 Chronic total occlusion of coronary artery; E66.01 Morbid (severe) obesity due to excess calories; E11.65 Type 2 diabetes mellitus with hyperglycemia; L97.519 Non-pressure chronic ulcer of other part of right foot with unspecified severity; I10 Essential (primary) hypertension; E78.5 Hyperlipidemia, unspecified; Z79.4 Long term (current) use of insulin; F17.220 Nicotine dependence, chewing tobacco, uncomplicated; Z68.37 Body mass index [BMI] 37.0-37.9, adult; I25.10 Atherosclerotic heart disease of native coronary artery without angina pectoris; I25.5 Ischemic cardiomyopathy; Z23 Encounter for immunization

== ENCOUNTER 2016-06-13 00:36 | Day surgery (SDC) | payer OTHER ==
[~2016-06-13] VITALS: Ht 193 cm; Wt 122.0 kg
[2016-06-13] VITALS (15 sets, daily range): BP systolic 92–167; BP diastolic 56–84; PULSE 80–85; RESP 11–24; O2SAT 93–99
[~2016-06-13 00:36] MED LIST changes: +ASPI-973 PO; +CARV25TA2 PO; +CLOP75TA28 PO; +DIGO250T72 PO; +INS7030U SUBQ; +LISI40TA PO; +METF-778 PO; +SIMV40TA5 PO; +SPIR25TA3 PO; +SYRI-233 MC
[2016-06-13] MEDS ORDERED: CeFAZolin Inj 2 GM in IV Premix 1 EACH IV ONE ×2 (08:05→10:30)
[2016-06-13] MEDS: 0.9% Sodium Chloride 1,000 ML IV SCH ×4 (08:05→22:34)
--- NOTE | 2016-06-13 09:00 | NUR ---
ADMISSION NOTE MALE PT ADMITTED FOR DEVICE IMPLANTATION. DISCUSSED PLAN OF CARE WITH PT AND MOTHER. SEE ADMIT AND FLOW SHEET
[2016-06-13 09:49] LABS: BASOPHILS % (AUTO) 0.1 % (0-3); EOSINOPHILS % (AUTO) 1.2 % (0-5); MONOCYTES % (AUTO) 8.8 % (4-12); Mean Corpuscular Hemoglobin 29.7 pg (27.0-35.0); Mean Corpuscular Volume 86.8 fL (81-100); NEUTROPHILS % (AUTO) 74.8 % (40-74); Platelet Count 266 bil/L (150-400)
[2016-06-13] MEDS ORDERED: Insulin Human REGular-Omnicell 100 Unit/mL ONE (09:58)
[2016-06-13] MEDS ORDERED: Insulin Human REGular-Omnicell 100 Unit/mL SUBQ ONE ×2 (10:10→11:00)
[2016-06-13 10:13] LABS: INR 0.95 ratio
[2016-06-13] MEDS ORDERED: 0.9% Sodium Chloride 1,000 ML ONE (10:19)
[2016-06-13] MEDS ORDERED: Bupivacaine-MPF 0.5% 30 mL Inj ONE (10:20)
[2016-06-13] MEDS ORDERED: Heparin 1,000 Unit/mL 10 mL Inj ONE (10:20)
[2016-06-13] MEDS ORDERED: Vancomycin 1,000 mg Inj ONE (10:20)
[2016-06-13] MEDS ORDERED: 0.9% Sodium Chloride 250 ML ONE (10:20)
[2016-06-13] MEDS ORDERED: Vancomycin 1,000mg/200 mL NS IV ONE (10:24)
[2016-06-13] MEDS ORDERED: Vancomycin 1 Gm/200 mL NS Premix IV ONE (10:30)
[2016-06-13] MEDS ORDERED: fentaNYL-PF 50 mCg/mL 2 mL Inj ONE ×2 (11:20→11:43)
[2016-06-13] MEDS ORDERED: Ondansetron 2 mg/mL 2 mL Inj IVPUSH PRN (12:35)
[2016-06-13] MEDS ORDERED: Dextrose 50% Water 50 mL Inj IV ONE (12:42)
--- NOTE | 2016-06-13 13:03 | NUR ---
POST PROCEDURE NOTE RETURNED FROM FLY FINISHER. SEE FLOW SHEET
--- NOTE | 2016-06-13 13:36 | OP ---
[address] [address] OPERATIVE REPORT PATIENT: GERRY WOLFE : 1965 MR#: [id number] ADMIT: 06/13/2016 JOB ID: [id number] DATE OF SURGERY: 06/13/2016 PREOPERATIVE DIAGNOSIS(ES): 1. Severe ischemic cardiomyopathy with ejection fraction 30% to 35%. 2. Coronary artery disease, not revascularizable. 3. [place] [employer] class II heart failure symptomology. POSTOPERATIVE DIAGNOSIS(ES): 1. Severe ischemic cardiomyopathy with ejection fraction 30% to 35%. 2. Coronary artery disease, not revascularizable. 3. [place] [employer] class II heart failure symptomology. PROCEDURES PERFORMED: 1. Single-chamber primary prevention implantable cardioverter-defibrillator implantation. 2. Fluoroscopy. SURGEON: David Yeung MD. CORN GRINDER: 1. Freddie Lai MD, interventional cardiology attending. 2. Alexey Barnett PA-C. IMPLANTED DEVICES: 1. [employer] pulse generator, model CO9024-78X, serial #[id number]. 2. RV lead single coil DF4, [employer] 7122, 65 cm, serial # [id number]. ANESTHESIA: Bolus dosing of Versed and fentanyl with appropriate level of sedation. INDICATION: The patient is a pleasant 50-year-old man with severe nonrevascularizable ischemic cardiomyopathy. Ejection fraction 30% to 35%. After discussion of risks and benefits of single-chamber primary implantation he opted to proceed. PROCEDURE: After informed consent, the patient was taken to the EP laboratory in a fasting nonsedated state, where he was prepped in usual sterile fashion. The left infraclavicular region was infiltrated with 40 cc of a 50/50 mixture of bupivacaine and lidocaine. Once adequate anesthesia had been achieved, a 3 cm transverse incision was performed 2 cm below the clavicle. Dissection was carried down to the pectoralis fascia. A pocket was then fashioned using a combination of electrocautery and blunt dissection. Once adequate hemostasis had been achieved, access to the left axillary vein was done with a micropuncture needle over the first rib to deploy a 0.035, 3 mm guidewire. Over this, a 7-Mosotho tear-away sheath was advanced and removed. Next, the RV outflow tract in the RV apex. Mapping was undertaken and ultimately a position of adequate sensing and threshold was identified. The lead was affixed in position using a fixation screw connected to the external analyzer and demonstrated appropriately sensed R waves, impedance, capture. Threshold was checked, 10 V, and there was no diaphragmatic stimulation. Once the position and redundancy of leads had been confirmed in multiple fluoroscopic views, the lead was anchored to the prepectoralis fascia using sutures. The pocket was then copiously irrigated with antibiotic solution. The leads were connected to a generator affixed to the floor of the pocket using 1-0 Ti-Cron suture. The incision was then closed with running layers of absorbable suture. The wound was dressed with skin adhesive and a dressing. At the end of procedure, the needle, sponge, instrument counts were all correct. COMPLICATIONS: None. ESTIMATED BLOOD LOSS: Negligible. DEVICE MEASURED DATA: 11.6 mV, 490 ohms, 0.75 V at 0.4 msec. FINAL PROGRAM PARAMETERS: 1. VVI 40 beats per minute. 2. VF zone at 187 beats per minute. ATP during charge 30 joules, followed by 36 joules x5. 3. VT 2 zone at 171 beats per minute. ATP x3, followed by 30 joules, followed by 36 joules x3. 4. VT monitor zone at 150 beats per minute. IMPRESSION: Successful single-chamber primary prevention implantable cardioverter-defibrillator implantation. PLAN: 1. Stat portable chest x-ray. 2. PA and lateral chest x-ray in the morning. 3. IV vancomycin through tomorrow. Doxycycline x7 days starting with wound check in one week. present for, supervised/performed all aspects of this procedure.
--- NOTE | 2016-06-13 14:38 | DRSVH ---
PROCEDURE: X-RAY CHEST ONE VIEW, PORTABLE ([id number]) INDICATIONS: For new leads placed TECHNIQUE: One view of the chest was acquired. COMPARISON: [facility], CR, XR CHEST 2VW, 04/24/2016, 9:04. [facility], CR, XR CHEST 1VW (PORTABLE), 04/16/2016, 8:24. FINDINGS: Surgical changes and devices: Single chamber left chest AICD. Lungs and pleura: No pleural effusions or pneumothorax. Lungs are clear. Mediastinum: Mediastinal contours appear normal. Heart size is normal. Bones and chest wall: No suspicious bony lesions. Overlying soft tissues appear unremarkable. IMPRESSION: No immediate complications status post cardiac pacemaker placement. Dictated by: Ponce MICHEL Interpreted: Nelly Goldsmith MD on 06/13/2016 at 14:37 Transcribed by: PRANEETH on 06/13/2016 at 14:38 Approved by: Nelly Goldsmith M.D. on 06/13/2016 at 17:31
[2016-06-13] MEDS: HYDROcodone-APAP 5-325 mg Tablet PO PRN ×2 (15:18→19:15)
--- NOTE | 2016-06-13 15:45 | NUR ---
TRANSFER NOTE TRANSFERED [place] [facility] [place] WITH DRAINAGE MARKED. MEDICATIONS GIVEN FOR PAIN IN LEFT SHOULDER. REPORT GIVEN.
--- NOTE | 2016-06-13 16:00 | NUR ---
ADMIT Pt admitted into unit/transferred from [facility]. Report received from YAMIL Smith. Pt brought onto floor via bed. VSS, no s/sx of distress. C/o pain to L shoulder from surgery, 09/23. Pt oriented to unit, room, bed, and call light. Pt declined to watch welcome video. Admission interventions completed.
--- NOTE | 2016-06-13 18:39 | NUR ---
VTach Pt had 7 beats of VTach around 1830 when getting out of bed. Asymptomatic upon assessment. MD paged, called back and said it is to be expected. Continuing with care.
[2016-06-13] MEDS ORDERED: Insulin Human NPH-Reg 70-30 100 Unit/mL 10 ML Mdv SUBQ SCH (20:30)
[2016-06-13] MEDS: metFORMIN ER 500 mg ER24 Tablet PO SCH (20:57)
[2016-06-13] MEDS: Lisinopril 40 Tablet PO SCH (20:58)
[2016-06-13] MEDS: Insulin LISPRO Medium-Dose Scale SUBQ PRN (21:00)
[2016-06-14] MEDS ORDERED: Vancomycin Inj 1,000 MG in IV Premix 1 EACH IV ONE (00:35)
[2016-06-14 01:08] VITALS: BP 134/77; PULSE 80; RESP 18; O2SAT 97
[2016-06-14] MEDS: HYDROcodone-APAP 5-325 mg Tablet PO PRN ×3 (01:11→11:27)
[2016-06-14] MEDS: 0.9% Sodium Chloride 1,000 ML IV SCH ×2 (04:05→08:34)
[2016-06-14 05:21] VITALS: BP 103/71; PULSE 83; RESP 16; O2SAT 95
--- NOTE | 2016-06-14 06:18 | NUR ---
Noc activity pt complains of pain on his left shoulder, controlled with [place] PRN. ICD dressing noted minimal serous-sanguinous but no obvious hemorrhage. No bruising or hematoma noted around the dressing site. Pt denies chest pain, sob, n/v or abd discomfort. Telemetry monitoring shows sinus rhythm. HS meds administered administered as scheduled. Hourly rounding done, pt has slept most of the night.
[2016-06-14] MEDS: Lisinopril 40 Tablet PO SCH (08:20)
[2016-06-14] MEDS: metFORMIN ER 500 mg ER24 Tablet PO SCH (08:21)
[2016-06-14] MEDS ORDERED: Insulin Human NPH-Reg 70-30 100 Unit/mL 3 mL Pen SUBQ SCH (08:30)
--- NOTE | 2016-06-14 09:13 | DRSVH ---
PROCEDURE: X-RAY CHEST, TWO VIEWS ([id number]) INDICATIONS: For new lead placement TECHNIQUE: 2 views of the chest were acquired. COMPARISON: [facility], CR, XR CHEST 1VW (PORTABLE), 06/13/2016, 13:33. FINDINGS: Surgical changes and devices: Stable positioning of left chest AICD. Lungs and pleura: No pleural effusions or pneumothorax. Lungs are clear. Mediastinum: Mediastinal contours are normal. Heart size is normal. Bones and chest wall: No suspicious bony abnormalities. Soft tissues appear unremarkable. IMPRESSION: Stable chest. Dictated by: Ponce Roberts RR Interpreted: Suzan Gibson MD on 06/14/2016 at 9:12 Transcribed by: YOKO on 06/14/2016 at 9:12 Approved by: Suzan Gibson MD, PhD on 06/14/2016 at 17:16
--- NOTE | 2016-06-14 09:37 | PCM.DIMED ---
Discharge Instructions Date of Service Jun 14, 2016 Dates of Hospitalization Discharge Diagnosis Discharge Diagnosis CAD Ischemic Cardiomyopathy Diabetes Hypertension Chronic Systolic CHF Diet Heart Healthy, Diabetic Activity Other (Do not extend left elbow high above left shoulder for one month. Do not lift, push or pull more than 10 lbs with the left arm for one month.) Call your provider Fever or Chills, Bleeding, Excessive diarrhea Patient Instructions Follow-up in: 1 week Mid-level Provider (F9): Alexey Barnett PA-C Follow-up with Mid-level in: 6 weeks Alexey Barnett PA-C Jun 14, 2016 09:37
[2016-06-14] MEDS ORDERED: DOXY100C43 PO (09:51)
[2016-06-14] MEDS ORDERED: HYDR-4003 PO (09:53)
[2016-06-14 10:04] VITALS: BP 130/79; PULSE 76; RESP 18; O2SAT 96
[2016-06-14 10:33] VITALS: PULSE 75
--- NOTE | 2016-06-14 10:36 | NUR ---
Social Work: Screening / D/C Data: [place] [facility] [place] 50 y/o admitted for ischemic cardiomyopathy. EMR reviewed, d/c orders are in. No d/c planning needs at this time. CLEANER GREASER will continue to follow if needs arise. Assessment: Pt who is independent at baseline. Plan: Pt will d/c home via POV today. No d/c planning needs at this time. CLEANER GREASER will continue to follow if needs arise. JOCELYN Freeman
[2016-06-14] MEDS: Insulin LISPRO Medium-Dose Scale SUBQ PRN (12:12)
[2016-06-14 12:13] VITALS: PULSE 80
--- NOTE | 2016-06-14 12:24 | NUR ---
Discharge: Patient discharged to home @ approx 1220. IV d/c'd intact. Telemetry removed, compliance monitor notified. BG 487, 8u lispro insulin administered. Personal belongings sent home with patient. Reviewed two new prescriptions, home medication list, d/c instructions and follow up appointments. Also reviewed, activity restrictions related to ICD placement. Verbalized understanding. Escorted to main entrance via wheelchair accompanied by CHEMICAL LAB TECHNICIAN.
[2016-06-14] MEDS ORDERED: Glucose 40% Oral Gel 15 Gm Tube PO PRN (12:35)
--- NOTE | 2016-06-14 14:25 | DIS ---
[address] [address] DISCHARGE SUMMARY PATIENT: GERRY WOLFE : 1965 MR#: [id number] ADMIT: 06/13/2016 JOB ID: [id number] DIS: 06/14/2016 REASON FOR ADMISSION: Defibrillator implant. CHIEF COMPLAINT: Dyspnea, fatigue, and edema. BRIEF HISTORY: The patient is a pleasant 50-year-old man with a history of coronary artery disease, ischemic cardiomyopathy, systolic congestive heart failure, diabetes, hypertension, and hyperlipidemia. Echocardiogram showed LV ejection fraction of 35%. He has three-vessel coronary disease not amenable to PCI or CABG. He was advised of his increased risk of cardiac arrest and plans were made for defibrillator implant as primary prevention. HOSPITAL COURSE: The patient was admitted to the [facility] and taken to the laborer driver, where he received a single-lead defibrillator system without incident. He was taken back to the [facility] for recovery from sedation and then transferred up to the [facility] [place] care. He did well overnight and his vital signs remained stable. Chest x-ray in the morning showed good lead position and no pneumothorax. Device evaluation showed good capture and sensing thresholds. The device site is closed and dry. There is no hematoma. DISPOSITION: The patient was discharged home in good condition with a followup appointment at the [facility] Cardiology office in one week. He was advised to continue his diabetic and heart failure diets and to take medications as prescribed. He was also asked not to extend his left elbow high above his shoulder for one month and not to lift, push, or pull more than 10 pounds with the left arm for one month. DISCHARGE MEDICATIONS: 1. Doxycycline 100 mg daily for 7 days. 2. Hydrocodone/acetaminophen 5/325 mg one tablet p.o. q.4 h. p.r.n. pain, #20, with no refills. 3. Aspirin 81 mg daily. 4. Carvedilol 37.5 mg b.i.d. 5. Clopidogrel 75 mg daily. 6. Digoxin 0.25 mg daily. 7. Furosemide 40 mg b.i.d. 8. Insulin NPH 25 units subcu in the morning. 9. Insulin NPH 50 units subcu in the evening. 10. Lisinopril 40 mg b.i.d. 11. Metformin 1000 mg b.i.d. 12. Simvastatin 40 mg q.h.s. FINAL DIAGNOSES: Coronary artery disease, ischemic cardiomyopathy, chronic systolic congestive heart failure, diabetes, hypertension, and hyperlipidemia. SAEED
[2016-06-14] MEDS ORDERED: Insulin LISPRO 300 Unit/3 mL Inj SUBQ SCH (17:30)
== END 2016-06-14 12:20 | disposition home or self-care (01) ==
LOC: SOUO 00:36 → MPC 15:40 → SOUO 06-14 12:20
PROVIDERS: ATTEND Internal Medicine Cardiovascular Disease
DX: I25.5 Ischemic cardiomyopathy (principal); I25.10 Atherosclerotic heart disease of native coronary artery without angina pectoris; Z00.6 Encounter for examination for normal comparison and control in clinical research program; I50.22 Chronic systolic (congestive) heart failure; E11.65 Type 2 diabetes mellitus with hyperglycemia; I10 Essential (primary) hypertension; E78.5 Hyperlipidemia, unspecified; G47.33 Obstructive sleep apnea (adult) (pediatric); E66.9 Obesity, unspecified; Z68.30 Body mass index [BMI] 30.0-30.9, adult; Z79.4 Long term (current) use of insulin; Z79.02 Long term (current) use of antithrombotics/antiplatelets; Z72.0 Tobacco use; Z79.82 Long term (current) use of aspirin; Z79.84 Long term (current) use of oral hypoglycemic drugs
CPT/HCPCS: 33249; 36415; 71010; 71020; 80048; 85025; 85610; 93005; 99152; 99153; C1722; C1769; C1777; C1892; J1644; J1815; J2250; J3010; J3370; J7050

== ENCOUNTER 2016-07-12 19:32 | Inpatient (IN) | payer OTHER ==
[~2016-07-12] VITALS: Ht 193 cm; Wt 127.0 kg
[~2016-07-12 19:32] MED LIST changes: +DOXY100C43 PO; +HYDR-4003 PO; -SPIR25TA3 PO; -SYRI-233 MC
[2016-07-12 20:02] VITALS: BP 136/77; PULSE 110; RESP 18; O2SAT 98
--- NOTE | 2016-07-12 20:37 | ED.REPORT ---
HPI-General Illness Date of Service Jul 12, 2016 ED Provider: Eusebio Correa MD A 50 year old male with a medical history including CAD, ischemic cardiomyopathy , systolic CHF, diabetes, hypertension, and hyperlipidemia s/p recent AICD placement (06/13/16) presents to the ED with shaking chills onset suddenly around 1830. The shaking lasted approximately 45 minutes. The patient also reports a left-sided dental abscess, recent cough, and left-sided chest pain which is baseline. The patient denies fever, dysuria, nausea, vomiting, or other symptoms. He was recently on a course of antibiotics after his pacemaker placement. Nursing Notes Stated Complaint: VERY COLD, SHAKY Chief Complaint: General Complaint Nursing Notes Reviewed: Yes (FlipKey not reconciled) Allergies: Coded Allergies: No Known Allergies (Unverified , 06/13/16) Scheduled Aspirin (Aspirin) 81 Mg Tablet 81 MG PO DAILY Atorvastatin (Lipitor) 10 Mg Tab 10 MG PO HS Carvedilol (Carvedilol) 25 Mg Tablet 37.5 MG PO BID Clopidogrel (Clopidogrel) 75 Mg Tablet 75 MG PO DAILY Digoxin (Digoxin) 250 Mcg Tablet 250 MCG PO DAILYWL Fish Oil/Dha/Epa (Fish Oil 1,200 mg Fish Oil) 1 Each Capsule 1 EACH PO DAILY Furosemide (Furosemide) 40 Mg/4 Ml Solution 40 MG PO DAILY Insul NPH Hu Rec/Ins Rg Hu Rec (Novolin 70/30 U100 Insulin Vial) 100 U/1 Ml U 40 -50 U SUBQ DAILYWM Insul NPH Hu Rec/Ins Rg Hu Rec (Novolin 70/30 U100 Insulin Vial) 100 U/1 Ml U 50 U SUBQ DAILYWD Lisinopril (Lisinopril) 40 Mg Tablet 40 MG PO BID Meloxicam (Meloxicam) 15 Mg Tablet 15 MG PO DAILY Metformin HCl (Metformin HCl ER) 1,000 Mg [id number] 1,000 MG PO BIDWM Multivit with Calcium,Iron,Min (Therapeutic M) 1 Each Tablet 1 EACH PO DAILY Spironolactone (Spironolactone) 25 Mg Tablet 25 MG PO QAM General Time Seen by MD: 20:34 Chief Complaint Other (Shaking Chills) Hx Obtained From: Patient Arrived By: Walk-in Sudden in Onset?: Yes Onset Occurred: 1 - 4 hours ago Symptom Duration: Since onset Location: : Chest Quality: Painful Severity: Current: Mild Severity: Maximum: Mild Associated with: Reports: Chest pain, Denies: Fever, Nausea, Vomiting Context Related History: Reports Coronary artery disease, Reports Diabetes mellitus Recent Healthcare: Recent doctor visit, Previous surgery Past Medical History Past Medical History Notes: Admitted May 2016 for AICD placement Echocardiogram with LVEF of 35% Past Medical History Coronary artery disease with ischemic cardiomyopathy and systolic congestive heart failure (patient has 3 vessel coronary disease not amenable to PCI or CABG) CHF, left ventricle insufficiency Diabetes, type II on insulin Reports: Hyperlipidemia, Hypertension Past Surgical History AICD placement 06/13/16 Appendectomy Tonsillectomy Surgical repair of left ankle (1988) Surgical repair of right ankle (1992) Family History Colon cancer Diabetes mellitus Hypertension Smoking History Never Smoker Social History Alcohol Use: "Social" Other Social History: Smokeless tobacco Ambulatory Status Independent Review of Systems + Left-sided dental abscess Full Review of Systems Constitutional: Reports: Chills, Denies: Fever Respiratory: Reports: Non-productive cough, Denies: Shortness of breath Cardiovascular: Reports: Chest pain (Left-sided, baseline) GI: Denies: Diarrhea, Nausea, Vomiting Male: Denies Dysuria Neurologic: Reports: Shaking Complete sys rev & neg: except as marked. Physical Exam Vital Signs Vital Signs Date Time Temp Pulse Resp B/P Pulse Ox O2 Delivery O2 Flow Rate FiO2 07/13/16 01:09 37.4 98 20 128/51 95 Room Air 07/12/16 20:02 37.4 110 18 136/77 98 Room Air Initial VS: Reviewed, Vital signs abnormal (HR 110) Respiratory: Breath sounds normal, Clear to auscultation, No respiratory distress Cardiovascular: Heart sounds normal Abdomen / GI: Soft, Non-tender Skin: Warm, Dry, No cyanosis Neurologic: Alert, Oriented, Nonfocal Psychiatric: Mood/affect normal, Behavior normal, Normal thought content General/Constitutional: Awake, Alert, Well appearing, Not toxic appearing Appears fatigued ENT: Airway patent, Mucous membranes moist Dental / Gums: Positive: Dental abscess (Around tooth #14), Dental caries present (Diffuse) Subtle swelling to left maxilla Cardiovascular: Heart rate NL, Regular rhythm, Heart sounds NL Trace ankle edema bilaterally Interpretation & Diagnostics Interpretation & Diagnostics: ANION GAP - 18.0 Lab Results Interpretation Result Diagram: 07/12/16203407/13/16 0120 Test 07/12/16 20:35 07/12/16 22:19 07/13/16 01:20 White Blood Count 11.2th/mm3 (3.8-10.1) Red Blood Count 4.54mil/mm3 (4.40-5.80) Hemoglobin 13.6g/dL (13.8-17.2) Hematocrit 40.0% (41.0-50.0) Mean Corpuscular Volume 88.1fL (81-100) Mean Corpuscular Hemoglobin 30.0pg (27.0-35.0) Mean Corpuscular Hemoglobin Concent 34.0% (32.0-37.0) Red Cell Distribution Width 15.3% (12.3-15.4) Platelet Count 256bil/L (150-400) Neutrophils (%) (Auto) 87.6% (40-74) Lymphocytes (%) (Auto) 5.2% (14-46) Monocytes (%) (Auto) 6.5% (4-12) Eosinophils (%) (Auto) 0.3% (0-5) Basophils (%) (Auto) 0.1% (0-3) Prothrombin Time 10.4sec (8.1-12.5) Prothromb Time International Ratio 0.97ratio Lactic Acid Level 2.0mmol/L (0.4-2.0) Magnesium Level 1.9mg/dL (1.6-2.6) Total Bilirubin 0.7mg/dL (0.0-1.2) Aspartate Amino Transf (AST/SGOT) 13U/L (0-50) Alanine Aminotransferase (ALT/SGPT) 19U/L (0-44) Alkaline Phosphatase 124U/L (25-150) Total Protein 7.7g/dL (6.4-8.4) Albumin 3.9g/dL (3.4-5.0) Hold Rucker Top Tube Received (Received) Digoxin Level 0.3nG/mL (0.9-2.0) Urine Color Yellow (YELLOW) Urine Appearance Hazy (CLEAR,HAZY) Urine pH 5.5 (5.0-8.0) Urine Specific [place] 1.030 (1.003-1.035) Urine Protein Negativemg/dL (NEG,TRACE) Urine Glucose (UA) >1000mg/dL (NEGATIVE) Urine Ketones Negativemg/dL (NEGATIVE) Urine Occult Blood Trace (NEGATIVE) Urine Nitrite Negative (NEGATIVE) Urine Bilirubin Negative (NEGATIVE) Urine Urobilinogen Normalmg/dL (NORMAL) Urine Leukocyte Esterase Negative (NEGATIVE) Urine RBC 0-2/hpf (0-2) Urine WBC 0-5/hpf (0-5) Urine Epithelial Cells Occasional/hpf (NONE-MOD) Urine Crystals None seen (NONE SEEN) Urine Bacteria None/hpf (NONE-FEW) Urine Hyaline Casts None/lpf (NONE) Urine Granular Casts None seen (NONE SEEN) Urine Waxy Casts None seen (NONE SEEN) Urine Red Blood Cell Casts None seen (NONE SEEN) Urine White Blood Cell Casts None seen (NONE SEEN) Urine Mucus None seen (None Seen) Urine Trichomonas None seen (NONE SEEN) Urine Yeast None (NONE SEEN) Urinalysis Comment None Urine Culture Reflexed Not indicated Sodium Level 128mEq/L (134-144) Potassium Level 4.2mEq/L (3.5-5.2) Chloride Level 91mEq/L (97-108) Carbon Dioxide Level 20mmol/L (18-29) Blood Urea Nitrogen 32mg/dL (6-24) Creatinine 1.06mg/dL (0.76-1.27) Estimat Glomerular Filtration Rate 78mL/min (>59) Glucose Level 491mg/dL (60-99) Calcium Level 9.2mg/dL (8.5-10.1) Lab Results Interpretation: CBC possible leukocytosis CMP mild renal insufficiency, severe hyperglycemia-no acidosis, venous blood gas normal\\ Troponin elevated-suspected demand ischemia in the setting of infection or metabolic Urine positive for glucose otherwise negative for infection Lactic acid normal Blood cultures pending ECG Interpretation ECG Interpretation: Sinus tachycardia rate [address] abnormalities laterally. T-wave inversions more pronounced than previous (06/14/16). Repolarizing abnormalities anteriorly marginally more pronounced than previous but nonspecific. ECG was read by governor assembler Dr. Serrano, nothing acute found. Time: 20:25 Interpreted by: ED physician, Accounting Policy Consultant X-Ray Chest Interpretation Chest Xray Interpretation: IMPRESSION: No acute cardiopulmonary findings. Dictated by: Elicia Mccracken M.D. on 07/12/2016 at 21:36 View: Portable, 1 view Interpretation / Wet Read by: Interpret - Radiologist Procedures Dental Nerve Block Dental Nerve Block Note: Indication: Abscess I&D Time: 22:13 Block Performed by: ED physician Consent / Setup / Site Prep: Consent from patient, Time-out performed, Hand hygiene observed, Stand sterile technique Anesthesia: Other (Topical Cetacaine) Local Anesthesia: Other (Bupivacaine w/ epi 0.5%) Post-Procedure / Complications: No complications, Condition improved, Tolerated procedure well, Patient stable, No bleeding Incision & Drainage Abscess I & D Abscess: Abscess burst open during prodding and examination, no scalpel necessary Time: 22:58 Procedure Performed by: ED physician Consent / Setup / Site Prep: Consent from patient, Time-out performed, Hand hygiene observed, Stand sterile technique, Sterile drapes applied Location of Abscess: Near tooth #14 Local Anesthesia: Other (Topical Cetacaine and Bupivacaine w/ epi 0.5%) Pus Drained: Large Post-Procedure / Complications: No complications, Condition improved, Tolerated procedure well, Patient stable Re-Eval/Medical Decision Med Decision/Clinical Course This is a 50-year-old male was ends complaining of profound generalized chills and what sound like rigors with shaking. He is also noted some facial swelling and dental pain that started today. Denies chest pain or shortness of breath to me. He is about a month status post an AICD placement for an ischemic cardiomyopathy. Denies cough, dysuria. He denies Rash or exanthem. He has had no redness or swelling of the pacemaker insertion site. The patient appears fatigued, but nontoxic. He has severe dental caries, and asked what appears to be significant dental abscess with a area of purulence at approximately tooth 13 (patient is missing multiple teeth) and there is a trace amount of swelling around the maxilla. There is no evidence airway compromise, no evidence of blood weeks. He is not tachypneic or dyspneic. He does not appear toxic. EKG reveals subtle abnormalities impaired with his EKG a month ago but is consistent with his chronic heart disease, and was reviewed with the governor assembler Dr. Kidd. Blood work is notable for leukocytosis, as well as severe hyperglycemia-without evidence of rolf DKA as there is some absence of metabolic acidosis and a normal anion gap. Troponin is elevated, but again the clinical presentation is one of infection and demand effects are expected, and again the case was discussed with Dr. Kidd. The patient received clindamycin IV after cultures are drawn, dexamethasone for the dental infection, and I incised and drained with a moderate amount of purulence of the abscess. He received Treatment IV fluids hydration and a non-DKA insulin drip for the profound hyperglycemia. He is being admitted for continued management. He is improved on reevaluation. The patient was required to stay in the emergency department until his glucosed dropped below 500. This occurred after treatment with IV fluids and insulin. The patient's being admitted for continued management. Source of Hx: Old records Time of Eval: 21:55 Patient Status: Condition improved Re-Evaluation/Progress Note: Dental block performed. Time of Eval: 23:00 Patient Status: Condition improved Re-Evaluation/Progress Note: Abscess I&D performed. Discussed with patient x-ray and lab results, diagnosis, and plan for admit. Patient agrees with plan for care and all questions were addressed. Consultation #1: Referral / Consult Name: Quinton Serrano MD Consulted With: Cardiology Call Returned at: 21:49 Process Camera Operator: Agrees with eval, Agrees with plan Note: Asked Dr. Serrano to review patient's ECG. He will call back. Consultation #2: Referral / Consult Name: Quinotn Serrano MD Call Returned at: 22:13 Process Camera Operator: Agrees with eval, Agrees with plan Note: Dr. Serrano reviewed patient's ECG and reads nothing acute. Consultation #3: Referral / Consult Name: Gayatri Montana DO Consulted With: Hospitalist Call Returned at: 22:00 Process Camera Operator: Agrees with eval, Agrees with plan, Accepts admit Differential Diagnosis: Positive: Diabetes mellitus, Negative: Acute coronary syndrome, Neutropenia, Pneumonia (severe hyperglycemia), Tonsillitis, acute, Upper resp infection Counseled Regarding: Diagnosis, Lab results, Need for admission Discharge & Departure Primary Impression: Dental abscess Additional Impressions: Rigors Hyperglycemia Elevated troponin Disposition: ADMITTED TO HOSPITAL Discharge Condition All VS Reviewed: Yes Condition: Improved Referrals: Curtis Yun DO (PCP) Crit Care Except Billable Proc Time Spent: 30-74 minutes Services Performed: Patient management by me, Time spent at bedside, Reviewing test results, Reviewing imaging Scribe Attestation Portions of this note were transcribed by Meenu Mann. I, Dr. Correa, personally performed the history, physical exam, and medical decision-making; I reviewed and confirmed the accuracy of the information in the transcribed note. Signed by: Tanner Neff, 07/12/2016, 23:20 copies to: Curtis Yun Matthew F MD Jul 12, 2016 20:37 MEENU MANN Jul 12, 2016 20:44
[2016-07-12] MEDS ORDERED: Clindamycin Inj 900 MG in IV Premix 1 EACH IV ONE (20:45)
[2016-07-12] MEDS ORDERED: Dexamethasone Inj 10 MG in 0.9% Sodium Chloride-Pha MIX 50 ML IV ONE (20:45)
[2016-07-12 20:48] LABS: BASOPHILS % (AUTO) 0.1 % (0-3); EOSINOPHILS % (AUTO) 0.3 % (0-5); MONOCYTES % (AUTO) 6.5 % (4-12); Mean Corpuscular Volume 88.1 fL (81-100); NEUTROPHILS % (AUTO) 87.6 % (40-74); Platelet Count 256 bil/L (150-400)
[2016-07-12 21:04] LABS: INR 0.97 ratio
[2016-07-12 21:25] LABS: Magnesium 1.9 mg/dL (1.6-2.6)
[2016-07-12] MEDS ORDERED: Bupivacaine 0.5%/EPI 50 mL Inj SUBQ ONE (21:25)
[2016-07-12 21:32] LABS: TROPONIN T 0.113 ug/L (0.0-0.011)
--- NOTE | 2016-07-12 21:38 | DRSVH ---
PROCEDURE: X-RAY CHEST ONE VIEW, PORTABLE ([id number]) INDICATIONS: CHEST PAIN TECHNIQUE: One view of the chest was acquired. COMPARISON: [facility], CR, XR CHEST 2VW, 06/14/2016, 7:23. FINDINGS: Surgical changes and devices: Single lead cardiac defibrillator is unchanged. Lungs and pleura: No pleural effusions or pneumothorax. Lungs are clear. Mediastinum: Mediastinal contours appear normal. Heart size is normal. Bones and chest wall: No suspicious bony lesions. Overlying soft tissues appear unremarkable. IMPRESSION: No acute cardiopulmonary findings. Dictated by: Elicia Mccracken M.D. on 07/12/2016 at 21:36 Approved by: Elicia Mccracken M.D. on 07/12/2016 at 21:36
[2016-07-12] MEDS ORDERED: Insulin Human REGular Inj 100 UNIT in 0.9% Sodium Chloride-Pha MIX 100 ML IV SCH ×2 (21:43→23:48)
--- NOTE | 2016-07-12 22:11 | ABG ---
DateTimeAnalyzed 22:08:00 -_ pH ____7.403 - pCO2 ___41.3__ -mmHg pO2 ___43.9__ -mmHg HCO3- ___25.2__ -mmol/L ABE ____0.9__ -mmol/L tHb ___13.6__ -g/dL O2Hb ___79.2__ -% COHb ____1.8__ -% MetHb ____0.9__ -% sO2 ___81.4__ -% FIO2 ___21.0__ -% Drawn By MK - Date/Time Notified____ 22:10:00 -_ B 757 -mmHg tO2 ___15.1__ -Vol% Gera test N/A -
[2016-07-12] MEDS ORDERED: 0.9% Sodium Chloride 1,000 ML IV ONE ×2 (22:25)
[2016-07-12 22:31] LABS: APPEARANCE,URINE HAZY (CLEAR,HAZY); COLOR,URINE YELLOW (YELLOW); OCCULT BLOOD,URINE TRACE (NEGATIVE); PH,URINE 5.5 (5.0-8.0)
[2016-07-12 22:32] LABS: UROBILINOGEN,URINE NORMAL (NORMAL)
[2016-07-12] MEDS ORDERED: SPIR25TA3 PO (22:55)
[2016-07-12] MEDS ORDERED: MELO7.5O PO (22:56)
[2016-07-12] MEDS ORDERED: ATRV10T PO (22:56)
[2016-07-12] MEDS ORDERED: FISH1CAP15 PO (22:56)
[2016-07-12] MEDS ORDERED: MULT-140 PO (22:56)
[2016-07-12] MEDS ORDERED: FURO40SO4 PO (22:57)
[2016-07-12] MEDS ORDERED: MELO-253 PO (23:04)
[2016-07-12] MEDS ORDERED: DIGO250T72 PO (23:05)
[2016-07-12] MEDS ORDERED: 0.9% Sodium Chloride 1,000 ML IV SCH (23:44)
[2016-07-12] MEDS ORDERED: Alum-Mag Hydrox-Simeth 30 mL Suspension PO PRN (23:45)
[2016-07-12] MEDS ORDERED: Ondansetron 2 mg/mL 2 mL Inj IVPUSH PRN (23:45)
[2016-07-12] MEDS ORDERED: Polyethylene Glycol (PEG) 17 Gm Powder PO PRN (23:45)
[2016-07-13] VITALS (9 sets, daily range): BP systolic 122–154; BP diastolic 51–89; PULSE 74–98; RESP 14–21; O2SAT 94–98
[2016-07-13] MEDS ORDERED: Heparin 5,000 Unit/mL Inj SUBQ SCH (00:30)
--- NOTE | 2016-07-13 01:13 | PCM.HPMED ---
Subjective Date of Service Jul 13, 2016 Primary Provider: Admitting Physician: Primary Care Physician: Curtis Yun DO Attending Physician: Admit Status: From the Emergency Department Chief Complaint: Cold and shakiness History of Present Illness: Patient is a 50 y.o. M with past medial history of CAD, ischemic cardiomyopathy , systolic HF, DM insulin dependent, HTN, hyperlipidemia, s/p AICD 06/13/16 anticoagulated on clodipogrel. He presented to ED 07/12/16 with shaking and chills that began one day prior at night, patient stated when he woke up he his mouth was very sore, swollen, painful and draining purulent material, later in the evening he stated he felt very warm and began to hive chills and shaking that lasted 45-60 minutes. Dental pain described as left sided back molar, with increased redness, swelling, leaking foul smelling white material, tender to touch. Additionally, patient reported left sided chest pain described as sharp, non radiating. Patient denies syncope, chest pressure, nausea, vomiting, change in vision, diarrhea, PND, orthopnea, swelling of hands and feet, worsening numbness and tingling of hand or feet (patient has baseline polyneuropathy of feet bilaterally from DM). Patient stated chest pain has resolved, but dental pain persists. Review of Systems: A comprehensive review of systems was conducted with the patient and found to be negative except as above in the History of Present Illness. Allergies Coded Allergies: No Known Allergies (Unverified , 07/13/16) Home Medications Aspirin (Aspirin) 81 Mg Tablet 81 MG PO DAILY Atorvastatin (Lipitor) 10 Mg Tab 10 MG PO HS Carvedilol (Carvedilol) 25 Mg Tablet 37.5 MG PO BID Clopidogrel (Clopidogrel) 75 Mg Tablet 75 MG PO DAILY Digoxin (Digoxin) 250 Mcg Tablet 250 MCG PO DAILYWL Fish Oil/Dha/Epa (Fish Oil 1,200 mg Fish Oil) 1 Each Capsule 1 EACH PO DAILY Furosemide (Furosemide) 40 Mg/4 Ml Solution 40 MG PO DAILY Insul NPH Hu Rec/Ins Rg Hu Rec (Novolin 70/30 U100 Insulin Vial) 100 U/1 Ml U 40 -50 U SUBQ DAILYWM Insul NPH Hu Rec/Ins Rg Hu Rec (Novolin 70/30 U100 Insulin Vial) 100 U/1 Ml U 50 U SUBQ DAILYWD Lisinopril (Lisinopril) 40 Mg Tablet 40 MG PO BID Meloxicam (Meloxicam) 15 Mg Tablet 15 MG PO DAILY Metformin HCl (Metformin HCl ER) 1,000 Mg [id number] 1,000 MG PO BIDWM Multivit with Calcium,Iron,Min (Therapeutic M) 1 Each Tablet 1 EACH PO DAILY Spironolactone (Spironolactone) 25 Mg Tablet 25 MG PO QAM PMH Admitted May 2016 for AICD placement Echocardiogram with LVEF of 35% May 2016 Coronary artery disease with ischemic cardiomyopathy and systolic congestive heart failure (patient has 3 vessel coronary disease not amenable to PCI or CABG) CHF, left ventricle insufficiency Diabetes, type II insulin dependent Hyperlipidemia Hypertension Surgical History AICD placement 06/13/16 Appendectomy Tonsillectomy Surgical repair of left ankle (1988) Surgical repair of right ankle (1992) Family History Family history of colon Colon cancer Diabetes mellitus Hypertension Social History Hx Alcohol Use: Yes Hx Substance Use: No Hx Tobacco Use: Yes (daily chewing tobacco, never smoker) Smoking Status: Never Smoker Exam Vital Signs Vital Sign - Last Date Time Temp Pulse Resp B/P Pulse Ox O2 Delivery O2 Flow Rate FiO2 07/12/16 20:02 37.4 110 18 136/77 98 Room Air Exam General: Cooperative, No Acute Distress, lying on ER gurney, obese Head: Normocephalic, atraumatic. External ears normal. Erythema to left zygomatic area, maxillary sinus tender to palpation, Eyes: PERRL, EOMI. Anicteric sclerae. Mouth: Mucous Membranes Moist/[place], remnants of chewing tobacco, extremely poor dentition, abscess post I&D, left back molar erythematous, swollen, Neck: Neck supple with full range of motion. No Thyromegaly. Chest & Lungs: Clear to auscultation bilaterally with minimal crackles in the bilateral bases without wheezes or rhonchi. good resp effort Cardiovascular: Tachycardic Rate/Rhythm, Normal S1, Normal S2, No Murmurs/Rubs/ Gallops appreciated, radial and posterior tibial pulses are 2+ bilaterally. No JVD appreciated on exam. pulses equal upper and lower ext Abdomen: Non-tender, Non-distended, No masses, Normoactive bowel tones, Soft, no pitting edema noted. Musculoskeletal: Normal Range of Motion, Strength 5/5 bilaterally in all extremities Extremities: Trace non pitting edema of ankle, significant hyperpigmentation with scaling on the bilateral lower legs consistent with stasis dermatitis Neurological: Alert, Oriented X3, Grossly Neurologically Intact, Cranial Nerves 2-12 Intact, Normal Speech Psych: Normal mood and affect. Thought process and content intact. Lymphatic: no supraclavicular or cervical lymphadenopathy appreciated Lab and Diagnostics Result Diagram: 07/12/16203407/12/16 2345 X-Rays, CTs and MRIs Chest X-Ray IMPRESSION: No acute cardiopulmonary findings. Dictated by: Elicia Mccracken M.D. on 07/12/2016 at 21:36 Approved by: Elicia Mccracken M.D. on 07/12/2016 at 21:36 12-lead ECG ECG Interpretation: Sinus tachycardia rate [address] abnormalities laterally. T-wave inversions more pronounced than previous (06/14/16). Repolarizing abnormalities anteriorly marginally more pronounced than previous but nonspecific. ECG was read by student services rep Dr. Serrano, nothing acute found. Time: 20:25 Interpreted by: ED physician, Waiter/Waitress Tavern Dr. Serrano reviewed patient's ECG and reads nothing acute Assessment & Plan Patient is a 50 y.o. M with past medial history of CAD, ischemic cardiomyopathy , systolic HF, DM insulin dependent, HTN, hyperlipidemia, s/p AICD 06/13/16 anticoagulated on clopidogrel. Admitted for treatment of hyperglycemic hyperosmolar state NDKA, elevated troponin chest pain rule out, dental infection. 1. Likely hyperglycemic hyperosmolar state NDKA, acute - Patient has history of uncontrolled DMII insulin dependent taking AM Lantus 40 units and HS Lantus 50 units with sliding scale - Initial labs on admission to ED show AG 18, BG 781, hyponatremia 123 corrected Na 139 , CL 82, BUN 32, Cr 1.32, ECT 11.2, Hgb 13.6, Hct 40 PLT 256 - ABG venous gas normal - UA negative for infection, blood, ketones - Patient stated on NDKA insulin drip in ED with BG goal of <500 prior to admission to hospital - Continue NDKA insulin drip until AG closed and BG <180, once AG and BG normalized restart Lantus 40 units start high dose correctional scale. - Keep Patient NPO while on drip - IVF NS @ 100 mls/hr - Repeat BMP Q2 until BG and AG normalize - Repeat BMP and CBC in AM - HbA1C ordered last April 2016 10.7 - Serum and Urine OSM pending 2. Elevated Troponin, acute - Patient has significant risk factors for heart disease, chronic systolic HF EF 35%, non amenable to PCI, CABG, CP resolved on admission, likely demand ischemia vs NSTEMI less likely - CXR negative for acute cardiopulmonary disease - ARNOLDO score 3 - Trend Troponin Q6 - PRN EKG for chest pain - PRN morphine for chest pain - PRN nitroglycerin SL for chest pain - Continue home BP med, continue home statin, continue home anticoagulation - Repeat BMP and CBC in AM as above - ECHO AM ordered -Cardiology Consulted in ED, Dr. Serrano reviewed patient's ECG and reads nothing acute, Likely demand ischemia does not recommend intervention at this time. 3. Dental infection, acute - Abscess to left back molar, history of chewing tobacco, extremely poor dentition - Continue antibiotics Clindamycin IV 900 mg Q8 - Viscous lidocaine - Patient will need close outpatient follow up with dentistry - Repeat CBC in AM Chronic Conditions Coronary artery disease with ischemic cardiomyopathy and systolic congestive heart failure (patient has 3 vessel coronary disease not amenable to PCI or CABG ) - Continue home medications, manage symptomatically CHF, left ventricle insufficiency -Continue home medications, Diabetes, type II insulin dependent - Manage as above #1 Hyperlipidemia - Continue home medication Hypertension - Continue home medications DVT prophylaxis: Clodipogrel, SCDs GI prophylaxis: Famotidine CODE STATUS FULL CODE Patient is admitted under inpatient status with expected length of stay greater than 2 midnights due to severity of presenting symptoms, risk of adverse event, and complexity of treatment plan. Pain Evaluation: Adequate Pain Control GI Prophylaxis: H2 jerod VTE Prophylaxis: SCDs Resuscitation Status: CPR: Attempt Resuscitation Attending Statement The patient was seen and examined together with house staff on 07/12/2016 and I agree with the history, exam and plan as outlined in the note above. SARITA MAYO DO Jul 13, 2016 01:13 Gayatri Montana DO Jul 13, 2016 04:30
[2016-07-13] MEDS ORDERED: Dextrose 5% 0.45% NaCl 1,000 ML IV PRN (02:27)
[2016-07-13] MEDS: 0.9% Sodium Chloride 1,000 ML IV SCH ×2 (02:38→14:53)
[2016-07-13 04:40] LABS: OSMOLALITY, URINE 522 mOs/kH2O (250-1200)
[2016-07-13 07:48] LABS: BASOPHILS % (AUTO) 0.1 % (0-3); EOSINOPHILS % (AUTO) 0 % (0-5); MONOCYTES % (AUTO) 3.4 % (4-12); Mean Corpuscular Hemoglobin 29.9 pg (27.0-35.0); Mean Corpuscular Volume 87.6 fL (81-100); NEUTROPHILS % (AUTO) 90.4 % (40-74); Platelet Count 226 bil/L (150-400)
[2016-07-13] MEDS: Famotidine Inj 20 MG in IV Premix 1 EACH IV SCH ×2 (08:13→20:56)
[2016-07-13] MEDS: Lisinopril 40 Tablet PO SCH ×2 (08:18→20:56)
[2016-07-13] MEDS ORDERED: Clindamycin Inj 900 MG in IV Premix 1 EACH IV SCH (08:30)
--- NOTE | 2016-07-13 14:59 | PCM.PNMED ---
Subjective Date of Service Jul 13, 2016 Subjective denies any new issues/complaints. no CP, SOB Exam Vital Signs Vital Sign - Last Date Time Temp Pulse Resp B/P Pulse Ox O2 Delivery O2 Flow Rate FiO2 07/13/16 11:46 36.8 82 21 135/74 94 Room Air Intake and Output 07/12/16 07/12/16 07/13/16 Cumulative From/Thru 15:00 23:00 07:00 07/12/16 20:02 - 07/13/16 06:46 Intake Total 2341 ml 2341 ml Output Total 1350 ml 1350 ml Balance 991 ml 991 ml Intake Oral 0 ml 0 ml IV Total 2341 ml 2341 ml Output Urine Total 1350 ml 1350 ml # Voids 2 2 General: Alert, Cooperative, No Acute Distress Head: Normal Eyes: Scleral Anicteric Nose: Mucous Membr Moist/[place] Mouth: Mucous Membranes Dry Chest & Lungs: Chest Wall Normal, Clear to auscultation & percussion Cardiovascular: Regular Rate/Rhythm Abdomen: Non-tender, Non-distended, Normoactive bowel tones, Soft Extremities: No cyanosis/clubbing/edma bilat Neurological: Grossly Neurologically Intact, Normal Speech IVs and Medications Medications Reviewed: Medications were reviewed in detail Lab and Diagnostics Result Diagram: 07/13/16 0710 07/13/16 0710 X-Rays, CTs and MRIs Chest X-Ray IMPRESSION: No acute cardiopulmonary findings. Dictated by: Elicia Mccracken M.D. on 07/12/2016 at 21:36 Approved by: Elicia Mccracken M.D. on 07/12/2016 at 21:36 12-lead ECG ECG Interpretation: Sinus tachycardia rate [address] abnormalities laterally. T-wave inversions more pronounced than previous (06/14/16). Repolarizing abnormalities anteriorly marginally more pronounced than previous but nonspecific. ECG was read by boning room worker Dr. Serrano, nothing acute found. Time: 20:25 Interpreted by: ED physician, Staining Machine Operator Dr. Serrano reviewed patient's ECG and reads nothing acute Assessment & Plan 50 y.o. M with past medial history of CAD, ischemic cardiomyopathy, systolic HF , DM insulin dependent, HTN, hyperlipidemia, s/p AICD 06/13/16 anticoagulated on clopidogrel. Admitted for treatment of hyperglycemic hyperosmolar state NDKA, elevated troponin chest pain rule out, dental infection. # Likely hyperglycemic hyperosmolar state NDKA, acute. present on admission - Resolved with insulin drip - Patient stated on NDKA insulin drip in ED with BG goal of <500 prior to admission to hospital - restart Lantus 40 units - start correctional scale. # Elevated Troponin, acute, present on amiddion - Patient has significant risk factors for heart disease, chronic systolic HF EF 35%, non amenable to PCI, CABG, CP resolved on admission, likely demand ischemia vs NSTEMI less likely - CXR negative for acute cardiopulmonary disease - Continue home BP med, continue home statin, continue home anticoagulation - f/u pending echo ECHO - Cardiology Consulted in ED, Dr. Serrano reviewed patient's ECG and reads nothing acute, Likely demand ischemia does not recommend intervention at this time. # Dental infection, acute. poa - Abscess to left back molar, history of chewing tobacco, extremely poor dentition - post I&D in the ED - Continue antibiotics Clindamycin IV 900 mg Q8 - ID consulted. will f/u w/ recs - Patient will need close outpatient follow up with dentistry Chronic Conditions # Coronary artery disease with ischemic cardiomyopathy and systolic congestive heart failure (patient has 3 vessel coronary disease not amenable to PCI or CABG ) - Continue home medications, manage symptomatically # CHF, left ventricle insufficiency - Continue home medications, # Diabetes, type II insulin dependent - Manage as above #1 # Hyperlipidemia - Continue home medication # Hypertension - Continue home medications # DVT prophylaxis: - Clodipogrel, SCDs # GI prophylaxis: Famotidine Dispo: 1-2 days GI Prophylaxis: H2 jerod VTE Prophylaxis: SCDs Resuscitation Status: CPR: Attempt Resuscitation Time spent 35 min Ajay Garcia Jul 13, 2016 14:59
--- NOTE | 2016-07-13 14:59 | PROG NOTE ---
[address] [address] PROGRESS NOTE PATIENT: GERRY WOLFE : 1965 MR#: [id number] ADMIT: 07/13/2016 JOB ID: [id number] DATE: 07/13/2016 REQUESTING PHYSICIAN: I thank Dr. Ferris for this timely consult. REASON FOR CONSULTATION: Dental abscess. 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 He was in his usual state of reasonably compensated health until just yesterday morning on July 12 when he developed violent shaking chills and left upper maxillary pain. These symptoms were quite severe and rapidly progressive and led him to the ER yesterday where he was evaluated and found to have an obvious abscess of one of his left upper molars. One of the emergency room physicians managed to accomplish at least partial drainage of this abscess, and the patient was admitted to the hospital because of this systemic toxicity and [id number] diabetes. Following his admission here, he was placed on high-dose clindamycin, and ID consultation is requested regarding antibiotic management. At this point, the patient reports she is already feeling much, much better with resolution of his fevers, chills, and considerable improvement in his left maxillary pain. Today, he has no significant headache or visual change. No sore throat, cough, shortness of breath, chest pain. PAST MEDICAL HISTORY: 1. Organic heart disease. a. Coronary artery disease. b. Ischemic cardiomyopathy with 30% ejection fraction. c. AICD placement. 2. Type 2 diabetes in, poor control. 3. Hyperlipidemia. 4. Status post appendectomy. SOCIAL HISTORY: The patient is a tobacco chewer but has never been a tobacco smoker. He does not drink alcohol. 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 FAMILY HISTORY: Negative for tuberculosis in first degree relatives. REVIEW OF SYSTEMS: The patient has no significant headache, visual change, sore throat, cough, chest pain, nausea, vomiting, diarrhea, or dysuria. Remainder of the review of systems is negative. PHYSICAL EXAMINATION: Reveals an afebrile gentleman. Temperature 36.8. I note that he has been afebrile since admission. Pulse 82, respiratory rate 21, blood pressure 135/74. He is saturating well on room air. Mental status is clear. Mood seems a bit diminished and affect quite flat. Head without trauma. Eyes without conjunctivitis or scleral icterus. Nose normal. Oral cavity is remarkable for really poor dentition with multiple teeth broken off or frankly carious. The left upper mandibular area has some erythema in and around the region of a broken off tooth. Neck without adenopathy. Lungs clear. Cardiac tones: Regular rate and rhythm without murmur. He has got a pacemaker in his left upper chest which is nontender. It was placed about a month ago, however, and so it is important that we not allow the patient to be bacteremic with the pacer in place. Patient's abdomen is soft, nontender. No organomegaly. Does not have a Dobbins catheter. No evidence of synovitis. No cellulitis. Neurologically, he is grossly intact. LABORATORIES: Include white count 11,000 last night, now 13. Considerable left shift, 90% segs. His admission glucose was 781. Now his glucose is down to 282. Creatinine 1.2. LFTs normal. Albumin 3.9. Urinalysis negative. Digoxin level 0.3. Blood cultures are negative. IMAGING: Includes only a chest radiograph done in the ER which showed no abnormalities except for the defibrillator. IMPRESSION: This is a 50-year-old gentleman with underlying severe ischemic cardiac disease who presents with less than a 1-day history of fevers, chills, and severe left maxillary pain with associated leukocytosis. He undoubtedly has a dental abscess which has been at least partially drained in the emergency room. The organisms present here will be oral streptococcus and related organisms such as Eikenella, perhaps some Actinobacteria and anaerobes. Optimal choices for treatment here could include by the IV route Unasyn, ertapenem, or perhaps clindamycin. Zosyn and similar agents would be excessive in terms of their spectrum, as he will not have Pseudomonas infection in this region. I would avoid clindamycin in these circumstances because of the high risk of Clostridium difficile colitis here in the hospital and would prefer Unasyn or ertapenem. RECOMMENDATIONS: 1. I would discontinue clindamycin. 2. Start on Unasyn 3 g IV q.6 h. 3. I would continue with Unasyn until he is ready to go home and then switch to a combination of Augmentin 875 p.o. b.i.d. and amoxicillin 1 g p.o. b.i.d. I realize that amoxicillin is part of Augmentin, but what we are attempting to do is maximize the oral dose of amoxicillin. Thank you very much for this consult. Infectious Disease will go ahead and sign off at this time. Do note that I reinforced to the patient and his mother that it is absolutely critical that he undertake some dental evaluation and treatment once he is discharged. Dental abscesses in a patient with a reduced immune system, as he is surely has due to his diabetes, are at high risk for life-threatening complications from dental abscesses. MTDD
[2016-07-13] MEDS: Ampicillin-Sulbactam Inj 3,000 MG in 0.9% Sodium Chloride 100 ML IV SCH ×2 (16:28→21:56)
--- NOTE | 2016-07-13 17:25 | DRSVH ---
[facility] [address] [place] [address] Echocardiogram Report Name: GERRY WOLFE RStudy Date: 07/13/2016 Height: 76 in Hospital Exam Location: [facility] Weight: 280 lb Gender: Male BSA: 2.6 m2 : 1965 Age: 50 yrs BP: 142/82 mmHg Reason For Study: ELEVATED TROPONIN Ordering Physician: Performed By: Jose Antonio Guy Interpretation Summary Left ventricular wall thickness is mildly increased. There is apical severe hypokinesis. There is no significant valvular heart disease. Compared to the prior echo report on 04/2016, there is no significant change. Procedure: A two-dimensional transthoracic echocardiogram with color flow and Doppler was performed. The study quality was technically adequate. Comparison is made with the echocardiogram of 04/23/16. A contrast injection of Definity was performed to improve assessment of LV function. The patient was in normal sinus rhythm during the exam. Left Ventricle: The left ventricle is normal in size. Left ventricular wall thickness is mildly increased. There is no thrombus. The ejection fraction is estimated to be 35-40%. There is apical severe hypokinesis. Right Ventricle: The right ventricle is mildly dilated. Right ventricular systolic function is mildly reduced. Atria: The left atrium is mildly dilated. Right atrial size is normal. The interatrial septum is intact with no evidence for an atrial septal defect. Mitral Valve: The mitral valve is normal in structure and function. There is no mitral regurgitation noted. Aortic Valve: The aortic valve is normal in structure and function. The aortic valve is trileaflet. The aortic valve opens well. No aortic regurgitation is present. Tricuspid Valve: The tricuspid valve is normal in structure and function. There is a trace or physiologic amount of tricuspid regurgitation. Pulmonary artery pressures cannot be estimated because of the lack of a measurable TR jet velocity. Pulmonic Valve: The pulmonic valve is not well visualized. Great Vessels: The aortic root is normal size. The ascending aorta is mildly enlarged. The pulmonary artery is normal size. The IVC is of normal diameter and collapses less than 50% with a sniff. This suggests a right atrial pressure of 8 mm Hg. Pericardium/ Pleura There is no pericardial effusion. There is no pleural effusion. MMode/2D Measurements & Calculations LVIDd: 5.2 cm LA dimension: 4.2 cm RA long axis: 4.9 cm Ao root diam LVIDs: 3.7 cm FS: 29.6 % LA A2 area: 29.9 cm RA area: 21.8 cm Aortic Jxn: 2.9 cm EPSS: 1.7 cm LA A4 area: 23.9 cm RA vol: 82.3 ml asc Aorta Diam IVSd: 1.2 cm LA length (vol) RA : 32.2 ml/m2 LVPWd: 1.1 cm Ao Arch Diam (Prox LA vol: 94.4 ml Trans): 3.2 cm LA vol index IVC diam: 2.4 cm EDV(MOD-sp2) LV peterson. diameter/BSA LV sys. diameter/BSA RVD1 (basal) : 124.3 ml (cm/m^2): 2.0 (cm/m^2): 1.4 : 5.2 cm RVD2 (mid) : 5.1 cm Doppler Measurements & Calculations Ao V2 max: 122.7 cm/sec MV E max manny MV E/A: 0.86 PA V2 max Ao max P.0 mmHg : 49.5 cm/sec Med Peak E' Manny : 69.3 cm/sec Ao mean P.1 mmHg MV A max manny PA mean PG LVOT Max Manny : 57.5 cm/sec E/E' med: 8.0 : 85.3 cm/sec Pulm A Revs Dur PA Accel Time sev ratio: 0.67 : 0.14 sec MV A dur: 0.13 sec MV dec time: 0.17 sec Ao V2 mean LV V1 max PG PA V2 mean : 99.6 cm/sec : 46.5 cm/sec Ao V2 VTI LV V1 VTI: 17.1 cmPA pr(Accel) : 25.4 cm : 14.1 mmHg Pulm A Revs Dur - MV A Dur: -0.04 msec Electronically signed by: Saulo Alamo on Reading Physician:07/13/2016 05:24 PM
[2016-07-13] MEDS ORDERED: Insulin Human NPH-Reg 70-30 100 Unit/mL 3 mL Pen SUBQ SCH (17:30)
[2016-07-13] MEDS: Insulin Human REGular 300 Unit/3 mL Inj SUBQ SCH ×2 (17:32→22:02)
[2016-07-14] VITALS (7 sets, daily range): BP systolic 132–151; BP diastolic 72–83; PULSE 60–80; RESP 18; O2SAT 96–97
[2016-07-14] MEDS: Ampicillin-Sulbactam Inj 3,000 MG in 0.9% Sodium Chloride 100 ML IV SCH ×2 (03:05→08:52)
[2016-07-14] MEDS: 0.9% Sodium Chloride 1,000 ML IV SCH (03:05)
[2016-07-14 05:56] LABS: BASOPHILS % (AUTO) 0.1 % (0-3); EOSINOPHILS % (AUTO) 0.6 % (0-5); MONOCYTES % (AUTO) 9.1 % (4-12); Mean Corpuscular Hemoglobin 29.7 pg (27.0-35.0); Mean Corpuscular Volume 89.3 fL (81-100); NEUTROPHILS % (AUTO) 75.7 % (40-74); Platelet Count 229 bil/L (150-400)
[2016-07-14 06:31] LABS: Magnesium 2.3 mg/dL (1.6-2.6)
[2016-07-14] MEDS ORDERED: Insulin Human NPH-Reg 70-30 100 Unit/mL 3 mL Pen SUBQ SCH (08:00)
[2016-07-14] MEDS: Insulin Human REGular 300 Unit/3 mL Inj SUBQ SCH ×2 (09:00→12:46)
[2016-07-14] MEDS: Lisinopril 40 Tablet PO SCH (09:02)
[2016-07-14] MEDS: Famotidine Inj 20 MG in IV Premix 1 EACH IV SCH (09:40)
[2016-07-14] MEDS ORDERED: INSU100V28 SUBQ ×2 (10:29→10:33)
[2016-07-14] MEDS ORDERED: AMOX500T2 PO (10:33)
[2016-07-14] MEDS ORDERED: AMOX-366 PO (10:33)
--- NOTE | 2016-07-14 10:41 | PCM.DIMED ---
Discharge Instructions Date of Service Jul 14, 2016 Dates of Hospitalization Jul 13, 2016 at 01:44 Discharge Diagnosis Discharge Diagnosis # Acute dental abscess (left molar), present on admission. post partial incision and drainage in the ER. # Acute hyperglycemic hyperosmolar state. present on admission. Resolved. # Elevated Troponin without associated chest pain, acute, present on admission. - Echocardiogram 07/13/16: "Left ventricular wall thickness is mildly increased. There is apical severe hypokinesis. There is no significant valvular heart disease. Compared to the prior echo report on 04/2016, there is no significant change." # Diabetes, type II insulin dependent. poorly controlled - HgA1C 15.5 Chronic Conditions # Coronary artery disease with ischemic cardiomyopathy and systolic congestive heart failure # Chronic systolic CHF, left ventricle insufficiency. stable. # Hyperlipidemia # Hypertension Diet Low fat, Low Sodium, Heart Healthy, Diabetic Activity No restrictions Call your provider Fever or Chills, Shortness of breath, Bleeding, Chest pain, Vomitting, Excessive diarrhea Patient Instructions Seek immediate medical attention if any new or worsening signs or symptoms occur. Follow-up plan 1. Followup with primary care provider in 3-5 days 2. Followup with a dentist as soon as possible within the next 1-7 days Follow-up Provider: Curtis Yun Masoud Jul 14, 2016 10:41
--- NOTE | 2016-07-14 18:32 | PCM.DC.MED ---
Discharge Summary Date of Service Jul 14, 2016 Dates of Hospitalization Date of Hospital Admission Jul 13, 2016 at 01:44 Date of Discharge: Jul 14, 2016 Providers: Admitting Physician: Gayatri Montana DO Primary Care Physician: Curtis Yun DO Attending Physician: Gayatri Montana DO Diagnosis at Time of Discharge Diagnosis at Time of Discharge # Acute dental abscess (left molar), present on admission. post partial incision and drainage in the ER. # Acute hyperglycemic hyperosmolar state. present on admission. Resolved. # Elevated Troponin without associated chest pain, acute, present on admission. - Echocardiogram 07/13/16: "Left ventricular wall thickness is mildly increased. There is apical severe hypokinesis. There is no significant valvular heart disease. Compared to the prior echo report on 04/2016, there is no significant change." # Diabetes, type II insulin dependent. poorly controlled - HgA1C 15.5 Chronic Conditions # Coronary artery disease with ischemic cardiomyopathy and systolic congestive heart failure # Chronic systolic CHF, left ventricle insufficiency. stable. # Hyperlipidemia # Hypertension Consultations 1. ID Procedures XRay, CTs & MRIs Chest X-Ray IMPRESSION: No acute cardiopulmonary findings. Dictated by: Elicia Mccracken M.D. on 07/12/2016 at 21:36 Approved by: Elicia Mccracken M.D. on 07/12/2016 at 21:36 ECG 12 Lead ECG Interpretation: Sinus tachycardia rate [address] abnormalities laterally. T-wave inversions more pronounced than previous (06/14/16). Repolarizing abnormalities anteriorly marginally more pronounced than previous but nonspecific. ECG was read by fingernail former Dr. Serrano, nothing acute found. Time: 20:25 Interpreted by: ED physician, Radiology Services Manager Dr. Serrano reviewed patient's ECG and reads nothing acute Cardiac Echo Impression Date of Service: 07/13/16 1019 Echocardiogram Report Interpretation Summary Left ventricular wall thickness is mildly increased. There is apical severe hypokinesis. There is no significant valvular heart disease. Compared to the prior echo report on 04/2016, there is no significant change. Electronically signed by: Saulo Alamo on Reading Physician:07/13/2016 05:24 PM Brief History As noted in H&P by Dr. Ferris: Patient is a 50 y.o. M with past medial history of CAD, ischemic cardiomyopathy , systolic HF, DM insulin dependent, HTN, hyperlipidemia, s/p AICD 06/13/16 anticoagulated on clodipogrel. He presented to ED 07/12/16 with shaking and chills that began one day prior at night, patient stated when he woke up he his mouth was very sore, swollen, painful and draining purulent material, later in the evening he stated he felt very warm and began to hive chills and shaking that lasted 45-60 minutes. Dental pain described as left sided back molar, with increased redness, swelling, leaking foul smelling white material, tender to touch. Additionally, patient reported left sided chest pain described as sharp, non radiating. Patient denies syncope, chest pressure, nausea, vomiting, change in vision, diarrhea, PND, orthopnea, swelling of hands and feet, worsening numbness and tingling of hand or feet (patient has baseline polyneuropathy of feet bilaterally from DM). Patient stated chest pain has resolved, but dental pain persists. Hospital Course # Dental infection, acute. poa - Abscess to left back molar, history of chewing tobacco, extremely poor dentition - post I&D in the ED - ID consulted. - will d/c home w/ PO Augmentin and Amoxicillin (as noted below) per ID recs - Patient will need close outpatient follow up with dentistry # Likely hyperglycemic hyperosmolar state NDKA, acute. present on admission - Resolved with insulin drip - Patient started on NDKA insulin drip in ED with BG goal of <500 prior to admission to hospital - restarted Lantus 40 units . # Elevated Troponin, acute, present on admission without any reported chest pain - Patient has significant risk factors for heart disease, chronic systolic HF EF 35%, non amenable to PCI, CABG, CP resolved on admission, likely demand ischemia vs NSTEMI less likely - CXR negative for acute cardiopulmonary disease - Continue home BP med, continue home statin, continue home anticoagulation - Echo without any significant change (as noted above) - Cardiology Consulted in ED, Dr. Serrano reviewed patient's ECG and reads nothing acute, Likely demand ischemia does not recommend intervention at this time. Chronic Conditions # Coronary artery disease with ischemic cardiomyopathy and systolic congestive heart failure (patient has 3 vessel coronary disease not amenable to PCI or CABG ) - Continue home medications, manage symptomatically # CHF, left ventricle insufficiency - Continue home medications, # Diabetes, type II insulin dependent - Manage as above #1 # Hyperlipidemia - Continue home medication # Hypertension - Continue home medications # DVT prophylaxis: - Clodipogrel, SCDs # GI prophylaxis: Famotidine by day of d/c lungs CTA bilat. pt requesting d/c home Exam Vital Signs (Last) Date Time Temp Pulse Resp B/P Pulse Ox O2 Delivery O2 Flow Rate FiO2 07/14/16 12:44 60 07/14/16 10:38 36.4 18 139/83 96 Room Air Test 07/12/16 20:35 07/12/16 22:19 07/13/16 01:20 07/13/16 07:10 Prothrombin Time 10.4sec (8.1-12.5) Prothromb Time International Ratio 0.97ratio Hemoglobin A1c 15.5% (4.8-5.6) Lactic Acid Level 2.0mmol/L (0.4-2.0) Hold Rucker Top Tube Received (Received) Digoxin Level 0.3nG/mL (0.9-2.0) Urine Color Yellow (YELLOW) Urine Appearance Hazy (CLEAR,HAZY) Urine pH 5.5 (5.0-8.0) Urine Specific [place] 1.030 (1.003-1.035) Urine Protein Negativemg/dL (NEG,TRACE) Urine Glucose (UA) >1000mg/dL (NEGATIVE) Urine Ketones Negativemg/dL (NEGATIVE) Urine Occult Blood Trace (NEGATIVE) Urine Nitrite Negative (NEGATIVE) Urine Bilirubin Negative (NEGATIVE) Urine Urobilinogen Normalmg/dL (NORMAL) Urine Leukocyte Esterase Negative (NEGATIVE) Urine RBC 0-2/hpf (0-2) Urine WBC 0-5/hpf (0-5) Urine Epithelial Cells Occasional/hpf (NONE-MOD) Urine Crystals None seen (NONE SEEN) Urine Bacteria None/hpf (NONE-FEW) Urine Hyaline Casts None/lpf (NONE) Urine Granular Casts None seen (NONE SEEN) Urine Waxy Casts None seen (NONE SEEN) Urine Red Blood Cell Casts None seen (NONE SEEN) Urine White Blood Cell Casts None seen (NONE SEEN) Urine Mucus None seen (None Seen) Urine Trichomonas None seen (NONE SEEN) Urine Yeast None (NONE SEEN) Urinalysis Comment None Urine Culture Reflexed Not indicated Urine Osmolality 522mOs/kH2O (250-1200) Osmolality 319 (275-300) Total Bilirubin 0.4mg/dL (0.0-1.2) Aspartate Amino Transf (AST/SGOT) 11U/L (0-50) Alanine Aminotransferase (ALT/SGPT) 16U/L (0-44) Alkaline Phosphatase 104U/L (25-150) Troponin T 0.071ug/L (0.0-0.011) Total Protein 6.9g/dL (6.4-8.4) Albumin 3.9g/dL (3.4-5.0) Test 07/13/16 16:05 07/14/16 05:19 Hepatitis C Antibody <0.1s/co ratio (0.0-0.9) HIV (1&2) Ag and Ab, 4th Generation Non reactive (Non Reactive) White Blood Count 11.4th/mm3 (3.8-10.1) Red Blood Count 4.31mil/mm3 (4.40-5.80) Hemoglobin 12.8g/dL (13.8-17.2) Hematocrit 38.5% (41.0-50.0) Mean Corpuscular Volume 89.3fL (81-100) Mean Corpuscular Hemoglobin 29.7pg (27.0-35.0) Mean Corpuscular Hemoglobin Concent 33.2% (32.0-37.0) Red Cell Distribution Width 15.7% (12.3-15.4) Platelet Count 229bil/L (150-400) Neutrophils (%) (Auto) 75.7% (40-74) Lymphocytes (%) (Auto) 14.1% (14-46) Monocytes (%) (Auto) 9.1% (4-12) Eosinophils (%) (Auto) 0.6% (0-5) Basophils (%) (Auto) 0.1% (0-3) Sodium Level 136mEq/L (134-144) Potassium Level 4.3mEq/L (3.5-5.2) Chloride Level 102mEq/L (97-108) Carbon Dioxide Level 20mmol/L (18-29) Blood Urea Nitrogen 29mg/dL (6-24) Creatinine 0.89mg/dL (0.76-1.27) Estimat Glomerular Filtration Rate 96mL/min (>59) Glucose Level 239mg/dL (60-99) Calcium Level 9.3mg/dL (8.5-10.1) Magnesium Level 2.3mg/dL (1.6-2.6) Discharge Medications Discharge Medications Amoxicillin (Amoxicillin) 500 Mg Tablet 1,000 MG PO BID Prescribed by: JESSE SHAH MD Amoxicillin/Clav K 875-125 mg (Augmentin 875-125 mg) 1 Each Tablet 1 TABLET PO BID Prescribed by: JESSE SHAH MD Aspirin (Aspirin) 81 Mg Tablet 81 MG PO DAILY Prescribed by: JAMES KO MD Atorvastatin (Lipitor) 10 Mg Tab 10 MG PO HS (Reported) Carvedilol (Carvedilol) 25 Mg Tablet 37.5 MG PO BID (Reported) Clopidogrel (Clopidogrel) 75 Mg Tablet 75 MG PO DAILY Prescribed by: JAMES KO MD Digoxin (Digoxin) 250 Mcg Tablet 250 MCG PO DAILYWL (Reported) Fish Oil/Dha/Epa (Fish Oil 1,200 mg Fish Oil) 1 Each Capsule 1 EACH PO DAILY ( Reported) Furosemide (Furosemide) 40 Mg/4 Ml Solution 40 MG PO DAILY (Reported) Insul NPH Hu Rec/Ins Rg Hu Rec (Novolin 70/30 U100 Insulin Vial) 100 U/1 Ml U 40 -50 U SUBQ DAILYWM (Reported) Insul NPH Hu Rec/Ins Rg Hu Rec (Novolin 70/30 U100 Insulin Vial) 100 U/1 Ml U 50 U SUBQ DAILYWD (Reported) Insulin Regular, Human (HUMulin-R U100 Insulin Vial) 100 Unit/1 Ml Vial 1-8 UNIT SUBQ ACHS ConditionDose/RouteInstruction BG 141-199 MG/dL 1 Unit BG 200-249 MG/dL 3 Units BG 250-299 MG/dL 5 Units BG 300-349 MG/dL 7 Units BG > 349 MG/dL 8 Units Hypoglycemia with BG <70 mg/dL *HOLD NUTRITIONAL Insulin Notify Provider of hypoglycemic incident Prescribed by: JESSE SHAH MD Lisinopril (Lisinopril) 40 Mg Tablet 40 MG PO BID (Reported) Meloxicam (Meloxicam) 15 Mg Tablet 15 MG PO DAILY (Reported) Metformin HCl (Metformin HCl ER) 1,000 Mg [id number] 1,000 MG PO BIDWM (Reported ) Multivit with Calcium,Iron,Min (Therapeutic M) 1 Each Tablet 1 EACH PO DAILY ( Reported) Spironolactone (Spironolactone) 25 Mg Tablet 25 MG PO QAM (Reported) Followup Plan Disposition: home Follow-up plan 1. Followup with primary care provider in 3-5 days 2. Followup with a dentist as soon as possible within the next 1-7 days Discharge Diet: Low fat, Low Sodium, Heart Healthy, Diabetic Discharge Activity: No restrictions Patient Instructions Seek immediate medical attention if any new or worsening signs or symptoms occur. Follow-up Provider: Curtis Yun DO Time spent 35 min copies to: Curtis Yun Masoud Jul 14, 2016 18:32
== END 2016-07-14 13:06 | disposition home or self-care (01) | DRG 114 ==
LOC: SED 19:32 → MPC 07-13 01:44
PROVIDERS: ADMIT Internal Medicine; ATTEND Internal Medicine
PROC: 0C95XZZ Drainage of Upper Gingiva, External Approach (ICD-10-PCS; principal; 2016-07-12)
PROC: 4A033R1 Measurement of Arterial Saturation, Peripheral, Percutaneous Approach (ICD-10-PCS; 2016-07-12)
DX: K04.7 Periapical abscess without sinus (principal); I50.22 Chronic systolic (congestive) heart failure; I25.10 Atherosclerotic heart disease of native coronary artery without angina pectoris; I25.5 Ischemic cardiomyopathy; I10 Essential (primary) hypertension; E78.5 Hyperlipidemia, unspecified; E11.65 Type 2 diabetes mellitus with hyperglycemia; Z79.4 Long term (current) use of insulin; F17.220 Nicotine dependence, chewing tobacco, uncomplicated; Z95.0 Presence of cardiac pacemaker

== ENCOUNTER 2016-12-28 12:39 | Inpatient (IN) | payer OTHER ==
[~2016-12-28] VITALS: Ht 193 cm; Wt 127.5 kg
[~2016-12-28 12:39] MED LIST changes: +AMOX-366 PO; +AMOX500T2 PO; +ATRV10T PO; -DOXY100C43 PO; +FISH1CAP15 PO; -FURO-128 PO; +FURO40SO4 PO; -HYDR-4003 PO; +INSU100V28 SUBQ; +MELO-253 PO; +MULT-140 PO; -SIMV40TA5 PO; +SPIR25TA3 PO
[2016-12-28 12:40] VITALS: BP 149/87; PULSE 101; RESP 16; O2SAT 99
--- NOTE | 2016-12-28 13:03 | ED.REPORT ---
HPI-Extremity Problem Upper Date of Service Dec 28, 2016 ED Provider: Pipe Spencer PA-C Jos is a 51-year-old male with a history of MO, diabetes presenting with a chief complaint of left arm pain. Patient complains of pain in his left elbow and forearm when he woke up approximately 3 days ago. Pain is been steady since then. He was seen in the urgent care referred to emergency department concern for blood clots. Denies history of blood clots, use of blood thinners, trauma, excessive exercise, chest pain, shortness of breath, cough, wheeze. Nursing Notes Stated Complaint: BLOOD CLOTS Chief Complaint: Extremity Trauma Nursing Notes Reviewed: Yes Allergies: Coded Allergies: No Known Allergies (Unverified , 07/13/16) Scheduled Aspirin (Aspirin) 81 Mg Tablet 81 MG PO DAILY Clopidogrel (Clopidogrel) 75 Mg Tablet 75 MG PO DAILY Fish Oil/Dha/Epa (Fish Oil 1,200 mg Fish Oil) 1 Each Capsule 1 EACH PO DAILY Furosemide (Lasix) 40 Mg Tablet 40 MG PO DAILY Gabapentin (Gabapentin) 300 Mg Capsule 300 MG PO BID Insul NPH Hu Rec/Ins Rg Hu Rec (Novolin 70/30 U100 Insulin Vial) 100 U/1 Ml U 54 U SUBQ BID Insulin Regular, Human (HUMulin-R U100 Insulin Vial) 100 Unit/1 Ml Vial 1-8 UNIT SUBQ ACHS ConditionDose/RouteInstruction BG 141-199 MG/dL 1 Unit BG 200-249 MG/dL 3 Units BG 250-299 MG/dL 5 Units BG 300-349 MG/dL 7 Units BG > 349 MG/dL 8 Units Hypoglycemia with BG <70 mg/dL *HOLD NUTRITIONAL Insulin Notify Provider of hypoglycemic incident Lisinopril (Lisinopril) 40 Mg Tablet 40 MG PO BID Metformin HCl (Metformin HCl ER) 1,000 Mg [id number] 1,000 MG PO BIDWM Multivit with Calcium,Iron,Min (Multivitamins [id number]) 1 Each Tablet 1 EACH PO QAM Simvastatin (Simvastatin) 40 Mg Tablet 40 MG PO HS General Time Seen by MD: 12:51 Chief Complaint Forearm injury left Past Medical History Past Medical History Notes: Admitted May 2016 for AICD placement Echocardiogram with LVEF of 35% Past Medical History Coronary artery disease with ischemic cardiomyopathy and systolic congestive heart failure (patient has 3 vessel coronary disease not amenable to PCI or CABG) CHF, left ventricle insufficiency Diabetes, type II on insulin Reports: Hyperlipidemia, Hypertension Past Surgical History AICD placement 06/13/16 Appendectomy Tonsillectomy Surgical repair of left ankle (1988) Surgical repair of right ankle (1992) Family History Colon cancer Diabetes mellitus Hypertension Smoking History Former Smoker Social History Alcohol Use: "Social" Other Social History: Smokeless tobacco Ambulatory Status Independent Review of Systems Review of Systems Note: Negative unless stated otherwise in history of present illness Physical Exam General: Well appearing, well developed, well nourished, no acute distress. Left arm: Slight redness, heat on palmar aspect of proximal forearm, antecubital fossa with associated tenderness. Patient has difficulty fully extending the elbow. Radial pulse 2+, brisk capillary refill and sensation intact in distal phalanges. Picking Tech strength, abduction with first and fifth digit as well as first and fifth digit pincer grasp are intact. Head: Atraumatic, normocephalic. Eyes: No scleral icterus or injection. No discharge. Vision grossly intact. ENT: Voice clear, hearing grossly intact. Respiratory: No respiratory distress, no increased work of breathing. Speaks in complete sentences. Skin: Warm and dry. Neurological: Grossly nonfocal. Psychological: alert and oriented. Speech appropriate, linear and logical. Behavior appropriate. Initial Vital Signs Vital Signs (First) Date Time Temp Pulse Resp B/P Pulse Ox O2 Delivery O2 Flow Rate FiO2 12/28/16 12:40 37.1 101 16 149/87 99 Room Air Slight tachycardia, elevated blood pressure Interpretation & Diagnostics Lab Results Interpretation Result Diagram: 12/28/16 1320 12/28/16 1320 Test 12/28/16 13:20 12/28/16 15:49 White Blood Count 8.3th/mm3 (3.8-10.1) Red Blood Count 5.27mil/mm3 (4.40-5.80) Hemoglobin 15.7g/dL (13.8-17.2) Hematocrit 46.1% (41.0-50.0) Mean Corpuscular Volume 87.5fL (81-100) Mean Corpuscular Hemoglobin 29.8pg (27.0-35.0) Mean Corpuscular Hemoglobin Concent 34.1% (32.0-37.0) Red Cell Distribution Width 13.3% (12.3-15.4) Platelet Count 216bil/L (150-400) Neutrophils (%) (Auto) 76.2% (40-74) Lymphocytes (%) (Auto) 15.2% (14-46) Monocytes (%) (Auto) 7.6% (4-12) Eosinophils (%) (Auto) 0.8% (0-5) Basophils (%) (Auto) 0.1% (0-3) Sodium Level 129mEq/L (134-144) Potassium Level 5.1mEq/L (3.5-5.2) Chloride Level 92mEq/L (97-108) Carbon Dioxide Level 24mmol/L (18-29) Blood Urea Nitrogen 22mg/dL (6-24) Creatinine 1.04mg/dL (0.76-1.27) Estimat Glomerular Filtration Rate 80mL/min (>59) Glucose Level 590mg/dL (60-99) Osmolality 311 (275-300) Calcium Level 9.5mg/dL (8.5-10.1) Total Bilirubin 0.5mg/dL (0.0-1.2) Aspartate Amino Transf (AST/SGOT) 27U/L (0-50) Alanine Aminotransferase (ALT/SGPT) 23U/L (0-44) Alkaline Phosphatase 154U/L (25-150) Troponin T < 0.010ug/L (0.0-0.011) Total Protein 7.5g/dL (6.4-8.4) Albumin 3.8g/dL (3.4-5.0) Procalcitonin 0.08ng/mL (0.00-0.08) Ketones Negative (Negative) Urine Color Yellow (YELLOW) Urine Appearance Clear (CLEAR,HAZY) Urine pH 5.5 (5.0-8.0) Urine Specific [place] 1.005 (1.003-1.035) Urine Protein 30mg/dL (NEG,TRACE) Urine Glucose (UA) 1000mg/dL (NEGATIVE) Urine Ketones Tracemg/dL (NEGATIVE) Urine Occult Blood Small (NEGATIVE) Urine Nitrite Negative (NEGATIVE) Urine Bilirubin Negative (NEGATIVE) Urine Urobilinogen Normalmg/dL (NORMAL) Urine Leukocyte Esterase Negative (NEGATIVE) Urine RBC 0-2/hpf (0-2) Urine WBC 0-5/hpf (0-5) Urine Epithelial Cells None/hpf (NONE-MOD) Urine Crystals None seen (NONE SEEN) Urine Bacteria None/hpf (NONE-FEW) Urine Hyaline Casts None/lpf (NONE) Urine Granular Casts None seen (NONE SEEN) Urine Waxy Casts None seen (NONE SEEN) Urine Red Blood Cell Casts None seen (NONE SEEN) Urine White Blood Cell Casts None seen (NONE SEEN) Urine Mucus None seen (None Seen) Urine Trichomonas None seen (NONE SEEN) Urine Yeast None (NONE SEEN) Urinalysis Comment None Urine Culture Reflexed Not indicated Re-Eval/Medical Decision Med Decision/Clinical Course 51-year-old male with a history of MO and diabetes presents with chief complaint left arm pain for last 4 days. Referred from urgent care with concern for blood clots. Physical examination reveals tenderness, redness, heat and swelling in the proximal palmar aspect of the forearm and antecubital fossa. Otherwise benign. Vitals are significant for mild tachycardia, elevated blood pressure. I discussed the case with Dr. Martin, who met with and examine the patient. Ultrasound of the limb is ordered to rule out DVT. CBC, CMP and troponin are ordered. CBC is negative for leukocytosis. CMP reveals a glucose of 590. Carbon dioxide is 24. Troponin is negative. Ultrasound is negative for DVT and suggestive of cellulitis per loader technician. osm and ketones are ordered out of concern for DKA. 1 L normal saline is initiated. Ketones are negative, OSM are 311. Again discussed the case with Dr. Jayme Caldwell. We feel admission for IV antibiotics as well as glucose management is reasonable. Admission is requested. 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 51-year-old male insulin-dependent diabetic presenting with left upper extremity redness and swelling. He has a cellulitis. Left upper extremity ultrasound no evidence of DVT. His blood sugar is 590. His osmoles are technically lower than HHS. No evidence DKA. Admitted for cellulitis and Hyperglycemia. 10 units insulin given. Given vancomycin and Zosyn. copies to: Curtis Yun Seth PA-C Dec 28, 2016 13:03 Christian Martin MD Dec 28, 2016 16:00
[2016-12-28 13:38] LABS: BASOPHILS % (AUTO) 0.1 % (0-3); EOSINOPHILS % (AUTO) 0.8 % (0-5); MONOCYTES % (AUTO) 7.6 % (4-12); Mean Corpuscular Hemoglobin 29.8 pg (27.0-35.0); Mean Corpuscular Volume 87.5 fL (81-100); NEUTROPHILS % (AUTO) 76.2 % (40-74); Platelet Count 216 bil/L (150-400)
[2016-12-28 13:58] LABS: TROPONIN T < 0.010 ug/L (0.0-0.011)
[2016-12-28] MEDS ORDERED: 0.9% Sodium Chloride 1,000 ML IV ONE ×3 (14:24→18:00)
[2016-12-28] MEDS ORDERED: Vancomycin Dose per Pharmacist XX ONE (14:25)
[2016-12-28] MEDS ORDERED: Insulin LISPRO 300 Unit/3 mL Inj SUBQ ONE (14:30)
[2016-12-28] MEDS ORDERED: Vancomycin Inj 2,250 MG in 0.9% Sodium Chloride 500 ML IV ONE (14:45)
[2016-12-28] MEDS ORDERED: Piperacillin-Tazo 3.375 Gm Inj 3.375 GM in Dextrose 5% Minibag Plus 50 ML IV ONE (14:55)
[2016-12-28] MEDS ORDERED: Ondansetron 2 mg/mL 2 mL Inj IVPUSH PRN ×2 (15:25→17:40)
[2016-12-28] MEDS ORDERED: Alum-Mag Hydrox-Simeth 30 mL Suspension PO PRN ×2 (15:25→17:40)
[2016-12-28] MEDS ORDERED: HYDROmorphone 0.5 mg/0.5 mL iSecure Syringe IVPUSH PRN (15:30)
--- NOTE | 2016-12-28 15:52 | DRSVH ---
PROCEDURE: US VENOUS ARM DUPLEX UNILATERAL, LEFT INDICATIONS: tenderness, swelling, heat TECHNIQUE: Real-time imaging, as well as color and pulse Doppler interrogation, was performed of the left upper extremity deep veins from the inferior neck to the antecubital fossa. COMPARISON: None. FINDINGS: The internal jugular vein, visualized portions of the subclavian vein, axillary, and brach ial veins are free of intraluminal thrombus. Where physically possible, the veins are normally compr essible. Color and pulse Doppler demonstrate normal intraluminal flow, with expected phasicity and p ulsatility. Additional scanning of the cephalic and basilic veins of the superficial system demonstr ate normal compressibility, without thrombus. IMPRESSION: No venous thrombosis identified within the left upper extremity. Dictated by: Ponce MICHEL Interpreted: Elicia Mccracken MD on 12/28/2016 at 15:18 Approved by: Elicia Mccracken M.D. on 12/28/2016 at 15:50
[2016-12-28 16:06] LABS: APPEARANCE,URINE CLEAR (CLEAR,HAZY); COLOR,URINE YELLOW (YELLOW); PH,URINE 5.5 (5.0-8.0)
[2016-12-28 16:07] LABS: OCCULT BLOOD,URINE SMALL (NEGATIVE); UROBILINOGEN,URINE NORMAL (NORMAL)
[2016-12-28] MEDS ORDERED: FURO-128 PO (16:29)
[2016-12-28] MEDS ORDERED: GABA-502 PO (16:29)
[2016-12-28] MEDS ORDERED: SIMV40TA5 PO (16:32)
[2016-12-28 16:37] VITALS: BP 149/87; PULSE 101; RESP 16; O2SAT 99
[2016-12-28] MEDS ORDERED: MULT-528 PO (17:12)
[2016-12-28] MEDS ORDERED: Polyethylene Glycol (PEG) 17 Gm Powder PO PRN (17:40)
--- NOTE | 2016-12-28 17:58 | PCM.HPMED ---
Subjective Date of Service Dec 28, 2016 Primary Provider: Admitting Physician: Ajay Garcia Primary Care Physician: Joanie Attending Physician: Ajay Garcia Chief Complaint: left arm swelling and pain History of Present Illness: 51 year old male with past medial history as noted below and notable for poorly controlled insulin dependent Type II diabetes presents today with complaint of fairly acute onset of left forearm swelling and tenderness extending into the left lower arm. He says two to three days ago he noticed some pain in his left forearm and thought he might have "tendinitis" and tried to ignore it but this morning noticed some swelling and worsening pain with decreased range of motion in his left elbow due to pain in his forearm and thus decided to present to the hospital. He otherwise denies any recent trauma, fever, chills, sweating, nausea , or vomiting. He denies any history of similar issue in the past. In the ED ultrasound of left upper extremity was negative for DVT. Impression of cellulitis was made in the ED and he received a dose of IV Vanco and Zosyn. In addition he was noted to have significant hyperglycemia and received 10 units of SC Insulin in the ED. Review of Systems: Constitutional: Negative, except as otherwise mentioned in the history above. Ophthalmologic: Negative, except as otherwise mentioned in the history above. Cardiovascular: Negative, except as otherwise mentioned in the history above. Respiratory: Negative, except as otherwise mentioned in the history above. Gastrointestinal: Negative, except as otherwise mentioned in the history above. Genitourinary: Negative, except as otherwise mentioned in the history above. Musculoskeletal: Negative, except as otherwise mentioned in the history above. Neurological: Negative, except as otherwise mentioned in the history above. Psychiatric: Negative, except as otherwise mentioned in the history above. Hematologic/Lymphatic: Negative, except as otherwise mentioned in the history above. Allergic/Immunologic: Negative, except as otherwise mentioned in the history above. Allergies Coded Allergies: No Known Allergies (Unverified , 07/13/16) Home Medications Amoxicillin (Amoxicillin) 500 Mg Tablet 1,000 MG PO BID Amoxicillin/Clav K 875-125 mg (Augmentin 875-125 mg) 1 Each Tablet 1 TABLET PO BID Aspirin (Aspirin) 81 Mg Tablet 81 MG PO DAILY Atorvastatin (Lipitor) 10 Mg Tab 10 MG PO HS Carvedilol (Carvedilol) 25 Mg Tablet 37.5 MG PO BID Clopidogrel (Clopidogrel) 75 Mg Tablet 75 MG PO DAILY Digoxin (Digoxin) 250 Mcg Tablet 250 MCG PO DAILYWL Fish Oil/Dha/Epa (Fish Oil 1,200 mg Fish Oil) 1 Each Capsule 1 EACH PO DAILY Furosemide (Furosemide) 40 Mg/4 Ml Solution 40 MG PO DAILY Insul NPH Hu Rec/Ins Rg Hu Rec (Novolin 70/30 U100 Insulin Vial) 100 U/1 Ml U 40 -50 U SUBQ DAILYWM Insul NPH Hu Rec/Ins Rg Hu Rec (Novolin 70/30 U100 Insulin Vial) 100 U/1 Ml U 50 U SUBQ DAILYWD Insulin Regular, Human (HUMulin-R U100 Insulin Vial) 100 Unit/1 Ml Vial 1-8 UNIT SUBQ ACHS Lisinopril (Lisinopril) 40 Mg Tablet 40 MG PO BID Meloxicam (Meloxicam) 15 Mg Tablet 15 MG PO DAILY Metformin HCl (Metformin HCl ER) 1,000 Mg [id number] 1,000 MG PO BIDWM Multivit with Calcium,Iron,Min (Therapeutic M) 1 Each Tablet 1 EACH PO DAILY Spironolactone (Spironolactone) 25 Mg Tablet 25 MG PO QAM PMH Admitted May 2016 for AICD placement Systolic CHF with LVEF of 35% May 2016 Coronary artery disease with ischemic cardiomyopathy and systolic Diabetes, type II insulin dependent Hyperlipidemia Hypertension Chewing Tobacco dependence Obesity Surgical History AICD placement 06/13/16 Appendectomy Tonsillectomy Surgical repair of left ankle (1988) Surgical repair of right ankle (1992) Family History Mother with Colon cancer Father and brother with Diabetes mellitus Social History Hx Alcohol Use: No Hx Substance Use: No Hx Tobacco Use: Yes (daily chewing tobacco, never smoker) Smoking Status: Former Smoker Exam Vital Signs Vital Sign - Last Date Time Temp Pulse Resp B/P Pulse Ox O2 Delivery O2 Flow Rate FiO2 12/28/16 16:37 37.1 101 16 149/87 99 Room Air Exam General: Cooperative, No Acute Distress Head: Normocephalic, atraumatic. External ears normal. Eyes: PERRL, EOMI. Anicteric sclerae. Mouth: Mucous Membranes Moist/[place], remnants of chewing tobacco, extremely poor dentition Neck: Neck supple with full range of motion. Chest & Lungs: Clear to auscultation bilaterally with minimal crackles in the bilateral bases without wheezes or rhonchi. good resp effort Cardiovascular: Regular Rate/Rhythm. No JVD appreciated on exam. pulses equal upper and lower ext Abdomen: Non-tender, Non-distended, No masses, Normoactive bowel tones, Soft Musculoskeletal: Somewhat limited range of motion in extension of the left elbow due to noted pain in the medial aspect of the left forearm. The left elbow itself is non-tender Extremities: Trace non pitting edema of ankle, significant hyperpigmentation with scaling on the bilateral lower legs consistent with stasis dermatitis. Left forearm and arm is mild to moderately swollen with left forearm tender to palpation. There is minimal erythema of the left proximal and medial aspect of the forearm compared to the right. No clear demarcation of the erythema and no significant warmth noted on exam. Neurological: Alert, Oriented X3, Grossly Neurologically Intact, Cranial Nerves 2-12 Intact, Normal Speech Psych: Normal mood and affect. Thought process and content intact. Lab and Diagnostics Result Diagram: 12/28/16 1320 12/28/16 1320 Additional Diagnostics: Date of Service: 12/28/16 1256 PROCEDURE: US VENOUS ARM DUPLEX UNILATERAL, LEFT IMPRESSION: No venous thrombosis identified within the left upper extremity. Dictated by: Ponce Roberts [facility] Interpreted: Elicia Mccracken MD on 12/28/2016 at 15: 18 Approved by: Elicia Mccracken M.D. on 12/28/2016 at 15:50 Assessment & Plan 51 year old male with past medial history as noted below and notable for poorly controlled insulin dependent Type II diabetes presents with complaint of fairly acute onset of left forearm swelling and tenderness extending into the left lower arm # Acute hyperglycemic hyperosmolar state NDKA, present on admission - Patient has history of uncontrolled DMII insulin dependent - Repeat fingerstick on the floor now is 380 so will hold off on starting insulin drip and instead will resume home dose Lantus and place on high dose insulin sliding scale for now - NS IV fluid cautiously given history of systolic heart failure - Followup repeat labs # Acute left forearm/arm swelling and tenderness with possible acute cellulitis , present on admission - I'm not fully certain about the diagnosis of cellulitis at this time given lack of significant demarcation/erythema and warmth on my exam - He has already received broad spectrum Abx with Vanco and Zosyn in the ED and I will hold off on further Abx for tonight and instead check some additional labs and reassess clinically in AM - Check procalcitonin - ASO titer and MRSA screen - Repeat labs in AM - Encourage to keep left arm elevated - Ibuprofen prn given symptoms may be secondary to non-infectious inflammatory process - Continue with other supportive care including IV Morphine prn for additional pain control # History of coronary artery disease with ischemic cardiomyopathy and systolic congestive heart failure (patient has 3 vessel coronary disease not amenable to PCI or CABG). Presumed stable. - Continue home medications, manage symptomatically # History of systolic CHF, left ventricle insufficiency. - Currently stable and compensated - Continue home medications, Diabetes, type II insulin dependent - Manage as noted above # Hyperlipidemia - Continue home medication # Chronic essential hypertension - Currently stable. - Continue home medications Expected length of hospital stay is greater than 2 midnights and likely 2-3 days VTE Prophylaxis: Sub-Q Heparin (Unfractionated) Resuscitation Status: CPR: Attempt Resuscitation (discussed and verified with the patient) Time spent 60 min Ajay Garcia Dec 28, 2016 17:58
[2016-12-28 18:25] VITALS: BP 130/81; PULSE 88; RESP 16; O2SAT 97
--- NOTE | 2016-12-28 18:57 | NUR ---
Admit Pt arrived at 1640 w/ licensed acupuncturist. Pt is a&ox3, ambulates well w/o assist. Oriented to room and call light, IV is infusing well on patent asymptomatic r forearm. Pt will call with any needs.
[2016-12-28] MEDS ORDERED: Insulin Human NPH-Reg 70-30 100 Unit/mL 10 ML Mdv SUBQ SCH (19:05)
[2016-12-28] MEDS ORDERED: Insulin Human REGular 300 Unit/3 mL Inj SUBQ SCH (20:30)
[2016-12-28] MEDS: Lisinopril 40 Tablet PO SCH (21:11)
[2016-12-28] MEDS: Insulin LISPRO High-Dose Scale SUBQ SCH ×2 (21:12→21:15)
[2016-12-28 22:30] VITALS: BP 135/84; PULSE 84; RESP 18; O2SAT 97
[2016-12-29] MEDS: Heparin 5,000 Unit/mL Inj SUBQ SCH ×3 (02:29→16:39)
[2016-12-29 02:36] VITALS: BP 135/85; PULSE 83; RESP 16; O2SAT 99
--- NOTE | 2016-12-29 05:00 | NUR ---
PAIN Pt receiving morphine q4h. Went over timing of medications with pt's for the evening. At that time, pt reported 9/10 in arm tolerable at 5/10. Not yet due for more meds, asked if pt could wait or if he needed more now, he stated he could wait. Per pt request due to high level of pain, pt woken up q4h to assess level of pain and give morphine. Every assessment of pain and reassessment, pt has been sleeping soundly, fairly easily awoken. Pt has no other complaints. Hourly rounding.
[2016-12-29 06:10] LABS: Hemoglobin A1C 14.6 % (4.8-5.6)
[2016-12-29 06:19] VITALS: BP 119/74; PULSE 85; RESP 16; O2SAT 96
[2016-12-29 06:47] LABS: BASOPHILS % (AUTO) 0.1 % (0-3); EOSINOPHILS % (AUTO) 2.2 % (0-5); MONOCYTES % (AUTO) 7.9 % (4-12); Mean Corpuscular Hemoglobin 29.8 pg (27.0-35.0); Mean Corpuscular Volume 89.1 fL (81-100); NEUTROPHILS % (AUTO) 62.4 % (40-74); Platelet Count 198 bil/L (150-400)
[2016-12-29 07:50] VITALS: BP 113/71; PULSE 78; RESP 16; O2SAT 95
[2016-12-29] MEDS ORDERED: Insulin Human NPH-Reg 70-30 100 Unit/mL 3 mL Pen SUBQ SCH ×2 (08:00→17:30)
[2016-12-29 08:08] LABS: Magnesium 2.2 mg/dL (1.6-2.6)
[2016-12-29] MEDS: Insulin LISPRO High-Dose Scale SUBQ SCH ×4 (09:51→22:52)
[2016-12-29] MEDS: Lisinopril 40 Tablet PO SCH ×2 (09:52→20:48)
--- NOTE | 2016-12-29 11:32 | NUR ---
Social Work: Initial Assessment / Multidisciplinary Rounds Data: See initial assessment. Patient is a 51 year old male who was admitted on 12/28/2016 for cellulitis and hyperglycemia per H&P. Patient's insurance is [employer] and he has no PCP listed at this time. EMR reviewed. SW met with patient to discuss discharge planning. SW role explained. Patient informed SW that he resides alone in [place]. Patient considers his mother Tamela to be his main source of support. Patient denies having a DPOA or AD and has declined SW offer for resources at this time. Patient confirms that he is I at baseline and is able to perform all of his ADLs and care needs. Patient confirms that he drives via POV. Patient denies having a hx of home health services or SNF. 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 Upon discharge, patient states that he will transport himself home via POV that is located in the parking lot. SW provided patient with a discharge planning checklist and encouraged to call with any questions or concerns. Phone number provided. Patient was discussed in morning rounds. There were no concerns noted by staff or MD. SW will continue to follow. Assessment: Patient to discharge home when medically stable. Plan: Patient will discharge home when medically stable. Transportation will be provided by POV. Patient has no discharge needs at this time. SW will continue to follow. JOCELYN Hernandez Addendum: 12/29/16 at 1146 by SJ HODGE SS Amended: Links added.
[2016-12-29] MEDS: Amoxicillin-Clav 875-125 mg Tablet PO SCH ×2 (12:39→20:48)
[2016-12-29] MEDS ORDERED: oxyCODONE-Acetamin 5-325 mg Tablet PO PRN (15:05)
--- NOTE | 2016-12-29 15:55 | PCM.PNMED ---
Subjective Date of Service Dec 29, 2016 Subjective Continues to have left forearm pain and swelling. No leukocytosis or fever. Blood glucose remains uncontrolled but improving. Exam Vital Signs Vital Sign - Last Date Time Temp Pulse Resp B/P Pulse Ox O2 Delivery O2 Flow Rate FiO2 12/29/16 07:50 36.4 78 16 113/71 95 Room Air Intake and Output 12/28/16 12/28/16 12/29/16 Cumulative From/Thru 14:59 22:59 06:59 12/28/16 12:40 - 12/29/16 06:17 Intake Total 1000 ml 1631 ml 2631 ml Balance 1000 ml 1631 ml 2631 ml Intake Oral 600 ml 600 ml IV Total 1000 ml 1031 ml 2031 ml # Voids 3 3 Exam General: Cooperative, No Acute Distress Head: Normocephalic, atraumatic. External ears normal. Eyes: PERRL, EOMI. Anicteric sclerae. Mouth: Mucous Membranes Moist/[place], remnants of chewing tobacco, extremely poor dentition Neck: Neck supple with full range of motion. Chest & Lungs: Clear to auscultation bilaterally with minimal crackles in the bilateral bases without wheezes or rhonchi. good resp effort Cardiovascular: Regular Rate/Rhythm. No JVD appreciated on exam. pulses equal upper and lower ext Abdomen: Non-tender, Non-distended, No masses, Normoactive bowel tones, Soft Musculoskeletal: Somewhat limited range of motion in extension of the left elbow due to noted pain in the medial aspect of the left forearm. The left elbow itself is non-tender. Left elbow is swollen and tender. Mildly erythematous. not warm to touch. Extremities: Trace non pitting edema of ankle, significant hyperpigmentation with scaling on the bilateral lower legs consistent with stasis dermatitis. Left forearm and arm is mild to moderately swollen with left forearm tender to palpation. There is minimal erythema of the left proximal and medial aspect of the forearm compared to the right. No clear demarcation of the erythema and no significant warmth noted on exam. Neurological: Alert, Oriented X3, Grossly Neurologically Intact, Cranial Nerves 2-12 Intact, Normal Speech Psych: Normal mood and affect. Thought process and content intact. IVs and Medications Medications Reviewed: Medications were reviewed in detail Lab and Diagnostics Result Diagram: 12/29/16 0620 12/29/16 0620 Additional Diagnostics Date of Service: 12/28/16 2136 PROCEDURE: US VENOUS ARM DUPLEX UNILATERAL, LEFT IMPRESSION: No venous thrombosis identified within the left upper extremity. Dictated by: Ponce Roberts [facility] Interpreted: Elicia Mccracken MD on 12/28/2016 at 15: 18 Approved by: Elicia Mccracken M.D. on 12/28/2016 at 15:50 Assessment & Plan 51 year old male with past medial history as noted below and notable for poorly controlled insulin dependent Type II diabetes presents with complaint of fairly acute onset of left forearm swelling and tenderness extending into the left lower arm # Acute hyperglycemic hyperosmolar state NDKA, present on admission - Patient has history of uncontrolled DMII insulin dependent -held off on starting insulin drip and instead will resumed home dose NPH 70/30 and placed on high dose insulin sliding scale for now.Blood glucose remains uncontrolled but improving. Increased dose from 54 bid to 58 bid - NS IV fluid cautiously given history of systolic heart failure -A1c 14.6 consistent with chronically uncontrolled diabetes. Diabetes education # Acute left forearm/arm swelling and tenderness with possible acute mild cellulitis, present on admission - I'm not fully certain about the diagnosis of cellulitis at this time given lack of significant demarcation/erythema and warmth on my exam - He had received broad spectrum Abx with Vanco and Zosyn in the ED. Continues to have significant swelling and tenderness. Started Augmentin. - procalcitonin unremarkable - ASO titer pending and MRSA screen negative - Encourage to keep left arm elevated - Ibuprofen prn given symptoms may be secondary to non-infectious inflammatory process - Continue with other supportive care including IV Morphine prn for additional pain control # History of coronary artery disease with ischemic cardiomyopathy and systolic congestive heart failure (patient has 3 vessel coronary disease not amenable to PCI or CABG). Presumed stable. - Continue home medications, manage symptomatically # History of systolic CHF, left ventricle insufficiency. - Currently stable and compensated - Continue home medications, Diabetes, type II insulin dependent - Manage as noted above # Hyperlipidemia - Continue home medication # Chronic essential hypertension - Currently stable. - Continue home medications Discharge in 2-3 days VTE Prophylaxis: Sub-Q Heparin (Unfractionated) Resuscitation Status: CPR: Attempt Resuscitation (discussed and verified with the patient) Roberto Sanford MD Dec 29, 2016 15:55
--- NOTE | 2016-12-29 16:25 | NUR ---
spiritual care: pt request brief introductory visit. pt drowsy and trying to sleep.
[2016-12-29 16:35] VITALS: BP 112/68; PULSE 86; RESP 16; O2SAT 97
--- NOTE | 2016-12-29 17:20 | NUR ---
NUTRITION CONSULT Consult received re diabetic education. Provided pt with diet education/meal planning tips. Pt interested in outpatient DE counseling, will refer to program.
--- NOTE | 2016-12-29 19:15 | NUR ---
pain control Pt c/o pain in left FA. States pain is 8-10/10. Sleeping after admin of medication. Is watching the clock and asking for medication as soon as it is due. aware. Switched pt from IV to PO in anticipation of his d/c. tomorrow.
[2016-12-29 20:30] VITALS: BP 126/75; PULSE 96; RESP 18; O2SAT 96
[2016-12-29] MEDS: Insulin GLARgine 100 Unit/mL Syringe SUBQ SCH (21:26)
[2016-12-30] MEDS: Heparin 5,000 Unit/mL Inj SUBQ SCH ×3 (00:37→17:35)
[2016-12-30 01:00] VITALS: BP 154/91; PULSE 97; RESP 18; O2SAT 95
--- NOTE | 2016-12-30 03:36 | NUR ---
High BS Pt. (BS 258) eMAR order to check BS TID AC HS and 3am but has no parameters for 3am check.On-Call doctor notified.
--- NOTE | 2016-12-30 05:23 | NUR ---
No response from On-Call No response or new orders received from On-Call doctor for high BS. VSS, Px manageable with M/S Q4 and heat on Lt. forearm. WCTM
[2016-12-30 06:00] VITALS: BP 133/84; PULSE 97; RESP 16; O2SAT 96
[2016-12-30 08:15] VITALS: BP 135/83; PULSE 91; RESP 16; O2SAT 97
[2016-12-30] MEDS: Lisinopril 40 Tablet PO SCH ×2 (08:20→20:36)
[2016-12-30] MEDS: Amoxicillin-Clav 875-125 mg Tablet PO SCH (08:20)
[2016-12-30] MEDS: Insulin GLARgine 100 Unit/mL Syringe SUBQ SCH ×2 (08:21→20:37)
[2016-12-30] MEDS: Insulin LISPRO High-Dose Scale SUBQ SCH ×4 (08:54→22:16)
[2016-12-30] MEDS: Vancomycin Dose per Pharmacist XX SCH (10:20)
[2016-12-30] MEDS ORDERED: Vancomycin Inj 2,000 MG in 0.9% Sodium Chloride 500 ML IV ONE (10:30)
[2016-12-30] MEDS: oxyCODONE-Acetamin 10-325 mg Tablet PO PRN ×3 (11:27→23:31)
--- NOTE | 2016-12-30 14:06 | PCM.CONPHA ---
Assessment/Plan Assessment/Plan Vancomycin Management by Pharmacy: -Indication: empiric therapy for pt with acute forearm swelling and tenderness with possible cellulitis -Concurrent Antibiotics: none -Nephrotoxic Risks: poorly controlled diabetic, chf -Goal Range: 10-15 for cellulitis -Labs from 12/29 include Wbc 6.7, serum creatinine 1.04, procalcitonin 0.1, afebrile -pt is 76 inches, 127.5kg, bmi 34.2, est crcl ~ 120ml/min -Mrsa pcr is negative -Plan: pt received a loading dose of Vancomycin 2gm iv at 1130 today. Will continue with a maintenance regimen of 1gm iv [id number] and draw trough level prior to 4th dose at 1330 on 12/31. Will monitor serum creatinine closely while receiving Vancomycin Trish Swann [facility] Dec 30, 2016 14:06
--- NOTE | 2016-12-30 14:07 | PCM.PNMED ---
Subjective Date of Service Dec 30, 2016 Subjective left forearm pain and swelling slightly worse Exam Vital Signs Vital Sign - Last Date Time Temp Pulse Resp B/P Pulse Ox O2 Delivery O2 Flow Rate FiO2 12/30/16 08:15 36.6 91 16 135/83 97 Room Air Intake and Output 12/29/16 12/29/16 12/30/16 Cumulative From/Thru 14:59 22:59 06:59 12/28/16 12:40 - 12/29/16 22:00 Intake Total 2500 ml 5131 ml Balance 2500 ml 5131 ml Intake Oral 2500 ml 3100 ml IV Total 0 ml 2031 ml # Voids 5 8 Exam General: Cooperative, No Acute Distress Head: Normocephalic, atraumatic. External ears normal. Eyes: PERRL, EOMI. Anicteric sclerae. Mouth: Mucous Membranes Moist/[place], remnants of chewing tobacco, extremely poor dentition Neck: Neck supple with full range of motion. Chest & Lungs: Clear to auscultation bilaterally with minimal crackles in the bilateral bases without wheezes or rhonchi. good resp effort Cardiovascular: Regular Rate/Rhythm. No JVD appreciated on exam. pulses equal upper and lower ext Abdomen: Non-tender, Non-distended, No masses, Normoactive bowel tones, Soft Musculoskeletal: Somewhat limited range of motion in extension of the left elbow due to noted pain in the medial aspect of the left forearm. The left elbow itself is non-tender. Left elbow is swollen and tender. Mildly erythematous. not warm to touch. Extremities: Trace non pitting edema of ankle, significant hyperpigmentation with scaling on the bilateral lower legs consistent with stasis dermatitis. Left forearm and arm is mild to moderately swollen with left forearm tender to palpation. There is minimal erythema of the left proximal and medial aspect of the forearm compared to the right. No clear demarcation of the erythema and no significant warmth noted on exam. Neurological: Alert, Oriented X3, Grossly Neurologically Intact, Cranial Nerves 2-12 Intact, Normal Speech Psych: Normal mood and affect. Thought process and content intact. IVs and Medications Medications Reviewed: Medications were reviewed in detail Lab and Diagnostics Result Diagram: 12/29/16 0620 12/29/16 0620 Additional Diagnostics Date of Service: 12/28/16 1256 PROCEDURE: US VENOUS ARM DUPLEX UNILATERAL, LEFT IMPRESSION: No venous thrombosis identified within the left upper extremity. Dictated by: Ponce Roberts A Interpreted: Elicia Mccracken MD on 12/28/2016 at 15: 18 Approved by: Elicia Mccracken M.D. on 12/28/2016 at 15:50 Assessment & Plan 51 year old male with past medial history as noted below and notable for poorly controlled insulin dependent Type II diabetes presents with complaint of fairly acute onset of left forearm swelling and tenderness extending into the left lower arm # Acute hyperglycemic hyperosmolar state NDKA, present on admission - Patient has history of uncontrolled DMII insulin dependent -held off on starting insulin drip and instead will resumed home dose NPH 70/30 50 u bid and placed on high dose insulin sliding scale for now.Blood glucose remains uncontrolled but improving. replaced NPH to lantus 45 bid - NS IV fluid cautiously given history of systolic heart failure -A1c 14.6 consistent with chronically uncontrolled diabetes. Diabetes education # Acute left forearm/arm swelling and tenderness with possible acute mild cellulitis, present on admission - I'm not fully certain about the diagnosis of cellulitis at this time given lack of significant demarcation/erythema and warmth on my exam - He had received broad spectrum Abx with Vanco and Zosyn in the ED. Continues to have significant swelling and tenderness. Started Augmentin 12/29.switched to vancomycin given worsening swelling - procalcitonin unremarkable - ASO titer pending and MRSA screen negative - Encourage to keep left arm elevated - Ibuprofen prn given symptoms may be secondary to non-infectious inflammatory process - Continue with other supportive care including IV Morphine prn for additional pain control # History of coronary artery disease with ischemic cardiomyopathy and systolic congestive heart failure (patient has 3 vessel coronary disease not amenable to PCI or CABG). Presumed stable. - Continue home medications, manage symptomatically # History of systolic CHF, left ventricle insufficiency. - Currently stable and compensated - Continue home medications, Diabetes, type II insulin dependent - Manage as noted above # Hyperlipidemia - Continue home medication # Chronic essential hypertension - Currently stable. - Continue home medications Discharge in 1-2 days VTE Prophylaxis: Sub-Q Heparin (Unfractionated) Resuscitation Status: CPR: Attempt Resuscitation (discussed and verified with the patient) Roberto Sanford MD Dec 30, 2016 14:07
[2016-12-30 16:42] VITALS: BP 131/78; PULSE 94; RESP 16; O2SAT 96
--- NOTE | 2016-12-30 17:44 | NUR ---
Pain Percocet changed from 5-325 to 10-325. Patient reports improved pain with increase of dose, rates pain 6/10 post intervention and "tolerable". IV morphine has not been given since change in Percocet dose.
[2016-12-30 20:00] VITALS: BP 134/79; PULSE 95; RESP 16; O2SAT 97
[2016-12-30] MEDS: Vancomycin 1 Gm/200 mL NS Premix IV SCH (21:54)
[2016-12-31] MEDS: Heparin 5,000 Unit/mL Inj SUBQ SCH ×2 (00:31→08:35)
[2016-12-31 00:39] VITALS: BP 158/98; PULSE 97; RESP 16; O2SAT 95
[2016-12-31 04:40] VITALS: BP 133/87; PULSE 94; RESP 16; O2SAT 95
[2016-12-31] MEDS: oxyCODONE-Acetamin 10-325 mg Tablet PO PRN ×2 (05:33→12:02)
[2016-12-31] MEDS: Vancomycin 1 Gm/200 mL NS Premix IV SCH (05:44)
--- NOTE | 2016-12-31 05:53 | NUR ---
High BS and HTN Pt. continues to have high BS and is HTN during the middle of the night only. Otherwise VSS and is getting IV ABO Q8. He does report high pain levels which he receives Percent Q6 for but only helps for a few hours. This dose was doubled from yesterday. Little to no redness and/or swelling on Lt. arm. No reaction to IV ABO during this shift. WCTM.
[2016-12-31 07:57] VITALS: BP 130/81; PULSE 95; RESP 16; O2SAT 97
[2016-12-31] MEDS: Vancomycin Dose per Pharmacist XX SCH (08:30)
[2016-12-31] MEDS: Lisinopril 40 Tablet PO SCH (08:35)
[2016-12-31] MEDS: Insulin GLARgine 100 Unit/mL Syringe SUBQ SCH (08:37)
[2016-12-31] MEDS: Insulin LISPRO High-Dose Scale SUBQ SCH ×2 (08:41→11:59)
--- NOTE | 2016-12-31 11:56 | NUR ---
Social Work- Readiness for Discharge/Multidisciplinary Rounds Data: EMR reviewed. Pt is on day 3 of hospitalization. Pt discussed in multidisciplinary rounds, pt is medically stable for discharge. Pt is independent at baseline. Pt to d/c home via POV. No discharge needs identified, no orders received. Assessment: Pt who is independent at baseline. Plan: Pt to d/c home via POV, no discharge needs identified. SW will continue to follow. JOCELYN Barber
--- NOTE | 2016-12-31 12:48 | PCM.DIMED ---
Discharge Instructions Date of Service Dec 31, 2016 Dates of Hospitalization Dec 28, 2016 at 15:56 Discharge Diagnosis Discharge Diagnosis # Acute hyperglycemic hyperosmolar state NDKA, present on admission # Acute left forearm/arm swelling and tenderness with possible acute mild cellulitis, present on admission # History of coronary artery disease with ischemic cardiomyopathy and systolic congestive heart failure (patient has 3 vessel coronary disease not amenable to PCI or CABG). Presumed stable. # History of systolic CHF, left ventricle insufficiency. # Diabetes, type II insulin dependent # Hyperlipidemia # Chronic essential hypertension Diet Discharge Diet: Heart Healthy, Diabetic Activity Discharge Activity: Limited until seen by PCP Call your provider Call your provider for: Fever or Chills, Shortness of breath, Bleeding, Chest pain, Vomitting, Excessive diarrhea, Weakness (unilateral) Patient Instructions Patient Instructions # You were hospitalized due to left forearm cellulitis .US negative for blood clot. Please take Augmentin for 5 more days . Please follow up with in 1 week . # You also had uncontrolled diabetes with A1c 14.6 . I have switched your NPH insulin to Lantus 45 units twice daily which seems to control better . Check and log blood glucose 3 times a day for 1-2 weeks .please follow up with PCP in 1 week and discuss blood glucose control with PCP. Follow-up Provider: Curtis Yun DO Follow-up with PCP in: 1 week Roberto Sanford MD Dec 31, 2016 12:48
[2016-12-31] MEDS ORDERED: INSU100I13 SUBQ (12:50)
[2016-12-31] MEDS ORDERED: OXYC1TAB24 PO (12:50)
[2016-12-31] MEDS ORDERED: AMOX-354 PO (12:50)
[2016-12-31] MEDS ORDERED: Vancomycin Serum Trough XX ONE (13:30)
--- NOTE | 2016-12-31 14:51 | NUR ---
Discharge Patient left floor at 1440 via wheelchair to front door to drive self home. All discharge information discussed with patient including medications and follow up appointments. Patient reports knowledge on using new insulin Lantus. Patient instructed to check blood sugars TID w/meals and HS. IV d/c'd intact. All belongings left with patient.
--- NOTE | 2016-12-31 17:20 | PCM.DC.MED ---
Discharge Summary Date of Service Dec 31, 2016 Dates of Hospitalization Date of Hospital Admission Dec 28, 2016 at 15:56 Date of Discharge: Dec 31, 2016 Providers: Admitting Physician: Ajay Shah Primary Care Physician: Joanie Attending Physician: Roberot Sanford MD Diagnosis at Time of Discharge Diagnosis at Time of Discharge # Acute hyperglycemic hyperosmolar state NDKA, present on admission # Acute left forearm/arm swelling and tenderness with possible acute mild cellulitis, present on admission # History of coronary artery disease with ischemic cardiomyopathy and systolic congestive heart failure (patient has 3 vessel coronary disease not amenable to PCI or CABG). Presumed stable. # History of systolic CHF, left ventricle insufficiency. # Diabetes, type II insulin dependent # Hyperlipidemia # Chronic essential hypertension Procedures Other Diagnostics Date of Service: 12/28/16 1256 PROCEDURE: US VENOUS ARM DUPLEX UNILATERAL, LEFT IMPRESSION: No venous thrombosis identified within the left upper extremity. Dictated by: Ponce Roberts RR Interpreted: Elicia Mccracken MD on 12/28/2016 at 15: 18 Approved by: Elicia Mccracken M.D. on 12/28/2016 at 15:50 Brief History per HPI 51 year old male with past medial history as noted below and notable for poorly controlled insulin dependent Type II diabetes presents today with complaint of fairly acute onset of left forearm swelling and tenderness extending into the left lower arm. He says two to three days ago he noticed some pain in his left forearm and thought he might have "tendinitis" and tried to ignore it but this morning noticed some swelling and worsening pain with decreased range of motion in his left elbow due to pain in his forearm and thus decided to present to the hospital. He otherwise denies any recent trauma, fever, chills, sweating, nausea , or vomiting. He denies any history of similar issue in the past. In the ED ultrasound of left upper extremity was negative for DVT. Impression of cellulitis was made in the ED and he received a dose of IV Vanco and Zosyn. In addition he was noted to have significant hyperglycemia and received 10 units of SC Insulin in the ED. Hospital Course 51 year old male with past medial history as noted below and notable for poorly controlled insulin dependent Type II diabetes presents with complaint of fairly acute onset of left forearm swelling and tenderness extending into the left lower arm # Acute hyperglycemic hyperosmolar state NDKA, present on admission - Patient has history of uncontrolled DMII insulin dependent -held off on starting insulin drip and instead will resumed home dose NPH 70/30 50 u bid and placed on high dose insulin sliding scale .Blood glucose remains uncontrolled but improving. replaced NPH to lantus 45 bid which seems to controll better . discharged on Lantus 45 bid . continues lispiro sliding scale as usual .advised to continue home NPH 70/30 regimen if insurance does not approve Lantus -A1c 14.6 consistent with chronically uncontrolled diabetes. Diabetes education -initial glucose 590 # Acute left forearm/arm swelling and tenderness with possible acute mild cellulitis, present on admission - I'm not fully certain about the diagnosis of cellulitis at this time given lack of significant demarcation/erythema and warmth on my exam - He had received broad spectrum Abx with Vanco and Zosyn in the ED. treated with initially with vancomycin ,swelling and pain improved ,discharged on Augmentin for 5 more days .follow up with PCP in 1 week - procalcitonin unremarkable - MRSA screen negative - Encourage to keep left arm elevated - percocet for pain # History of coronary artery disease with ischemic cardiomyopathy and systolic congestive heart failure (patient has 3 vessel coronary disease not amenable to PCI or CABG). Presumed stable. - Continue home medications, manage symptomatically # History of systolic CHF, left ventricle insufficiency. - Currently stable and compensated - Continue home medications, Diabetes, type II insulin dependent - Manage as noted above # Hyperlipidemia - Continue home medication # Chronic essential hypertension - Currently stable. - Continue home medications Discharge home Exam Vital Signs (Last) Date Time Temp Pulse Resp B/P Pulse Ox O2 Delivery O2 Flow Rate FiO2 12/31/16 07:57 36.8 95 16 130/81 97 Room Air Exam General: Cooperative, No Acute Distress Head: Normocephalic, atraumatic. External ears normal. Eyes: PERRL, EOMI. Anicteric sclerae. Mouth: Mucous Membranes Moist/[place], remnants of chewing tobacco, extremely poor dentition Neck: Neck supple with full range of motion. Chest & Lungs: Clear to auscultation bilaterally with minimal crackles in the bilateral bases without wheezes or rhonchi. good resp effort Cardiovascular: Regular Rate/Rhythm. No JVD appreciated on exam. pulses equal upper and lower ext Abdomen: Non-tender, Non-distended, No masses, Normoactive bowel tones, Soft Musculoskeletal: Somewhat limited range of motion in extension of the left elbow due to noted pain in the medial aspect of the left forearm. The left elbow itself is non-tender. Left elbow is swollen and tender. Mildly erythematous. not warm to touch. Extremities: Trace non pitting edema of ankle, significant hyperpigmentation with scaling on the bilateral lower legs consistent with stasis dermatitis. Left forearm and arm is mild to moderately swollen with left forearm tender to palpation. There is minimal erythema of the left proximal and medial aspect of the forearm compared to the right. No clear demarcation of the erythema and no significant warmth noted on exam. Neurological: Alert, Oriented X3, Grossly Neurologically Intact, Cranial Nerves 2-12 Intact, Normal Speech Psych: Normal mood and affect. Thought process and content intact. Test 12/28/16 13:20 12/28/16 15:49 12/29/16 06:20 12/31/16 06:21 Hemoglobin A1c 14.6% (4.8-5.6) Total Bilirubin 0.5mg/dL (0.0-1.2) Aspartate Amino Transf (AST/SGOT) 27U/L (0-50) Alanine Aminotransferase (ALT/SGPT) 23U/L (0-44) Alkaline Phosphatase 154U/L (25-150) Troponin T < 0.010ug/L (0.0-0.011) Total Protein 7.5g/dL (6.4-8.4) Albumin 3.8g/dL (3.4-5.0) Ketones Negative (Negative) Streptozyme 74.0IU/mL (0.0-200.0) Urine Color Yellow (YELLOW) Urine Appearance Clear (CLEAR,HAZY) Urine pH 5.5 (5.0-8.0) Urine Specific [place] 1.005 (1.003-1.035) Urine Protein 30mg/dL (NEG,TRACE) Urine Glucose (UA) 1000mg/dL (NEGATIVE) Urine Ketones Tracemg/dL (NEGATIVE) Urine Occult Blood Small (NEGATIVE) Urine Nitrite Negative (NEGATIVE) Urine Bilirubin Negative (NEGATIVE) Urine Urobilinogen Normalmg/dL (NORMAL) Urine Leukocyte Esterase Negative (NEGATIVE) Urine RBC 0-2/hpf (0-2) Urine WBC 0-5/hpf (0-5) Urine Epithelial Cells None/hpf (NONE-MOD) Urine Crystals None seen (NONE SEEN) Urine Bacteria None/hpf (NONE-FEW) Urine Hyaline Casts None/lpf (NONE) Urine Granular Casts None seen (NONE SEEN) Urine Waxy Casts None seen (NONE SEEN) Urine Red Blood Cell Casts None seen (NONE SEEN) Urine White Blood Cell Casts None seen (NONE SEEN) Urine Mucus None seen (None Seen) Urine Trichomonas None seen (NONE SEEN) Urine Yeast None (NONE SEEN) Urinalysis Comment None Urine Culture Reflexed Not indicated White Blood Count 6.7th/mm3 (3.8-10.1) Red Blood Count 5.16mil/mm3 (4.40-5.80) Hemoglobin 15.4g/dL (13.8-17.2) Hematocrit 46.0% (41.0-50.0) Mean Corpuscular Volume 89.1fL (81-100) Mean Corpuscular Hemoglobin 29.8pg (27.0-35.0) Mean Corpuscular Hemoglobin Concent 33.5% (32.0-37.0) Red Cell Distribution Width 13.8% (12.3-15.4) Platelet Count 198bil/L (150-400) Neutrophils (%) (Auto) 62.4% (40-74) Lymphocytes (%) (Auto) 27.1% (14-46) Monocytes (%) (Auto) 7.9% (4-12) Eosinophils (%) (Auto) 2.2% (0-5) Basophils (%) (Auto) 0.1% (0-3) Sodium Level 135mEq/L (134-144) Potassium Level 4.5mEq/L (3.5-5.2) Chloride Level 98mEq/L (97-108) Carbon Dioxide Level 22mmol/L (18-29) Blood Urea Nitrogen 25mg/dL (6-24) Estimat Glomerular Filtration Rate 80mL/min (>59) Glucose Level 346mg/dL (60-99) Osmolality 299 (275-300) Calcium Level 8.9mg/dL (8.5-10.1) Magnesium Level 2.2mg/dL (1.6-2.6) Procalcitonin 0.10ng/mL (0.00-0.08) Creatinine 0.87mg/dL (0.76-1.27) Discharge Medications Discharge Medications Amoxicillin/Clav K ER 1000-62.5 mg (Amoxicillin/Clav K ER 1000-62.5 mg) 1 Each Tab.er.12h 1 TABLET PO BID Prescribed by: ROBERTO SANFORD MD Aspirin (Aspirin) 81 Mg Tablet 81 MG PO DAILY Prescribed by: JAMES KO MD Clopidogrel (Clopidogrel) 75 Mg Tablet 75 MG PO DAILY Prescribed by: JAMES KO MD Fish Oil/Dha/Epa (Fish Oil 1,200 mg Fish Oil) 1 Each Capsule 1 EACH PO DAILY ( Reported) Furosemide (Lasix) 40 Mg Tablet 40 MG PO DAILY (Reported) Gabapentin (Gabapentin) 300 Mg Capsule 300 MG PO BID (Reported) Insulin Glargine (Lantus U100 Solostar Insulin Pen) 100 Unit/1 Ml Insuln.pen 45 UNIT SUBQ BID Prescribed by: ROBERTO SANFORD MD Insulin Regular, Human (HUMulin-R U100 Insulin Vial) 100 Unit/1 Ml Vial 1-8 UNIT SUBQ ACHS ConditionDose/RouteInstruction BG 141-199 MG/dL 1 Unit BG 200-249 MG/dL 3 Units BG 250-299 MG/dL 5 Units BG 300-349 MG/dL 7 Units BG > 349 MG/dL 8 Units Hypoglycemia with BG <70 mg/dL *HOLD NUTRITIONAL Insulin Notify Provider of hypoglycemic incident Prescribed by: AJAY SHAH MD Lisinopril (Lisinopril) 40 Mg Tablet 40 MG PO BID (Reported) Metformin HCl (Metformin HCl ER) 1,000 Mg [id number] 1,000 MG PO BIDWM (Reported ) Multivit with Calcium,Iron,Min (Multivitamins G-[id number]-Fsav) 1 Each Tablet 1 EACH PO QAM (Reported) Simvastatin (Simvastatin) 40 Mg Tablet 40 MG PO HS (Reported) As needed oxyCODONE-Acetaminophen 5-325 mg (oxyCODONE-Acetaminophen 5-325 mg) 1 Each Tablet 1 TAB PO Q6H PRN PRN For Pain Prescribed by: ROBERTO SANFORD MD Followup Plan Disposition: home Discharge Diet: Heart Healthy, Diabetic Discharge Activity: Limited until seen by PCP Patient Instructions # You were hospitalized due to left forearm cellulitis .US negative for blood clot. Please take Augmentin for 5 more days . Please follow up with in 1 week . # You also had uncontrolled diabetes with A1c 14.6 . I have switched your NPH insulin to Lantus 45 units twice daily which seems to control better . Check and log blood glucose 3 times a day for 1-2 weeks .please follow up with PCP in 1 week and discuss blood glucose control with PCP. Follow-up Provider: Curtis Yun DO Follow-up with PCP in: 1 week Time spent 35 minutes counselling on diabetes control copies to: Curtis Yun DO Roberto Sanford MD Dec 31, 2016 17:20
== END 2016-12-31 14:40 | disposition home or self-care (01) | DRG 383 ==
LOC: SED 12:39 → MOC 15:56
PROVIDERS: ADMIT Internal Medicine; ATTEND Internal Medicine
DX: L03.114 Cellulitis of left upper limb (principal); E11.00 Type 2 diabetes mellitus with hyperosmolarity without nonketotic hyperglycemic-hyperosmolar coma (NKHHC); I50.20 Unspecified systolic (congestive) heart failure; E11.65 Type 2 diabetes mellitus with hyperglycemia; I11.0 Hypertensive heart disease with heart failure; I25.10 Atherosclerotic heart disease of native coronary artery without angina pectoris; I25.5 Ischemic cardiomyopathy; E78.5 Hyperlipidemia, unspecified; Z79.02 Long term (current) use of antithrombotics/antiplatelets; Z79.82 Long term (current) use of aspirin; Z79.84 Long term (current) use of oral hypoglycemic drugs; Z79.4 Long term (current) use of insulin; Z95.810 Presence of automatic (implantable) cardiac defibrillator; Z72.0 Tobacco use